=== PATIENT | male | born 1970 | race Caucasian/White ===

== ENCOUNTER 2020-08-21 09:27 | Outpatient (REF) | payer MEDICAID, SELFPAY ==
[2020-08-21 11:08] LABS: Prostate Specific Antigen < 0.05 ng/mL (<0.05-4.0)
== END 2020-08-21 09:28 | disposition home or self-care (01) ==
LOC: HO.LAB 09:27
PROVIDERS: PCP Internal Medicine Medical Oncology; Visit Provider Urology
DX: C61 Malignant neoplasm of prostate (principal)
CPT/HCPCS: 84153

== ENCOUNTER → 2020-08-27 09:01 | Outpatient (BNVA) | payer MEDICAID, SELFPAY | PROVIDERS: PCP Internal Medicine Medical Oncology; Referring Provider Internal Medicine Medical Oncology; Visit Provider Urology | DX: N52.01 Erectile dysfunction due to arterial insufficiency (principal); C61 Malignant neoplasm of prostate | CPT/HCPCS: 99212 ==

== ENCOUNTER 2021-01-07 11:29 | Outpatient (REF) | payer MEDICAID, SELFPAY ==
[2021-01-07 13:45] LABS: Prostate Specific Antigen < 0.05 ng/mL (<0.05-4.0)
== END 2021-01-07 11:30 | disposition home or self-care (01) ==
LOC: HO.LAB 11:29
PROVIDERS: PCP Internal Medicine Medical Oncology; Visit Provider Urology
DX: C61 Malignant neoplasm of prostate (principal)
CPT/HCPCS: 36415; 84153

== ENCOUNTER → 2021-01-08 10:05 | Outpatient (BNVA) | payer MEDICAID, SELFPAY | PROVIDERS: PCP Internal Medicine Medical Oncology; Visit Provider Urology | DX: Z13.89 Encounter for screening for other disorder (principal) | CPT/HCPCS: 99212 ==

== ENCOUNTER 2021-01-16 10:27 | Outpatient (REF) | payer MEDICAID, SELFPAY ==
[2021-01-16 12:21] LABS: Prostate Specific Antigen < 0.05 ng/mL (<0.05-4.0)
== END 2021-01-16 10:28 | disposition home or self-care (01) ==
LOC: HO.LAB 10:27
PROVIDERS: PCP Internal Medicine Medical Oncology; Visit Provider Urology
DX: C61 Malignant neoplasm of prostate (principal)
CPT/HCPCS: 36415; 84153

== ENCOUNTER → 2021-01-23 14:57 | Outpatient (BNVA) | payer MEDICAID, SELFPAY | PROVIDERS: PCP Internal Medicine Medical Oncology; Visit Provider Urology | DX: N52.01 Erectile dysfunction due to arterial insufficiency (principal) | CPT/HCPCS: 99212 ==

== ENCOUNTER 2021-01-29 10:26 | Outpatient (REF) | payer MEDICAID, SELFPAY ==
[2021-01-29 11:19] LABS: MANUAL DIFF FLAG NO
[2021-01-29 11:23] LABS: Basophils Percent Auto 0.7 % (0-2); Eosinophils Absolute Auto 0.1 X10*3/uL (0.0-0.4); Eosinophils Percent Auto 1.5 % (0-4); Hematocrit 48.4 % (42-52); Hemoglobin 16.3 g/dl (14.0-18.0); Imm Gran Abs Auto 0.06 X10*3/uL (0.00-0.03); Lymphocytes Absolute Auto 1.4 X10*3/uL (1.2-4.9); Lymphocytes Percent Auto 23.5 % (20-40); Mean Corpuscular HGB Conc 33.7 g/dl (31.0-36.0); Mean Corpuscular Hemoglobin 27.7 pg (27.0-33.0); Mean Corpuscular Volume 82.2 fL (80-98); Mean Platelet Volume 10.7 fL (9.4-12.4); Monocytes Absolute Auto 0.6 X10*3/uL (0.1-1.2); Monocytes Percent Auto 10.1 % (2-11); Neutrophils Absolute Auto 3.8 X10*3/uL (2.0-8.3); Neutrophils Percent Auto 63.2 % (45-73); Platelet Count 226 X10*3/uL (160-400); Red Blood Count 5.89 X10*6/uL (4.60-5.80); Red Cell Distribution Width 12.1 % (11.0-16.0)
[2021-01-29 12:04] LABS: Alanine Aminotransferase 27 U/L (0-40); Albumin Level 4.6 g/dL (3.5-5.0); Alkaline Phosphatase 52 U/L (39-117); Anion Gap 14 (12-20); Aspartate Amino Transferase 22 U/L (5-37); Bilirubin Total 0.6 mg/dL (0.0-1.0); Blood Urea Nitrogen 12 mg/dL (9-16); Calcium 9.4 mg/dL (8.4-10.2); Carbon Dioxide 25 mmol/L (22-29); Chloride 107 mmol/L (96-108); Cholesterol 240 mg/dL; Estimated Glomerular Filt Rate > 60; Glucose Fasting 92 mg/dL (60-99); HDL Cholesterol 51 mg/dL; LDL Cholesterol Calculated 156 mg/dl; Potassium 4.7 mmol/L (3.3-5.1); Sodium 141 mmol/L (135-145); Total Protein 7.2 g/dL (6.5-8.0); Triglycerides 169 mg/dL
== END 2021-01-29 10:27 | disposition home or self-care (01) ==
LOC: HO.LAB 10:26
PROVIDERS: PCP Internal Medicine Medical Oncology; Visit Provider Internal Medicine Medical Oncology
DX: J98.11 Atelectasis (principal); E78.2 Mixed hyperlipidemia; E66.3 Overweight
CPT/HCPCS: 36415; 80053; 80061; 85025

== ENCOUNTER 2021-05-12 10:02 | Outpatient (REF) | payer MEDICAID, SELFPAY ==
[2021-05-12 12:12] LABS: Prostate Specific Antigen < 0.05 ng/mL (<0.05-4.0)
== END 2021-05-12 10:03 | disposition home or self-care (01) ==
LOC: HO.LAB 10:02
PROVIDERS: PCP Internal Medicine Medical Oncology; Visit Provider Urology
DX: Z12.5 Encounter for screening for malignant neoplasm of prostate (principal); C61 Malignant neoplasm of prostate; N13.8 Other obstructive and reflux uropathy; N40.1 Benign prostatic hyperplasia with lower urinary tract symptoms
CPT/HCPCS: 36415; 84153

== ENCOUNTER → 2021-05-13 10:03 | Outpatient (BNVA) | payer MEDICAID, SELFPAY | PROVIDERS: PCP Internal Medicine Medical Oncology; Visit Provider Urology | DX: N52.01 Erectile dysfunction due to arterial insufficiency (principal); C61 Malignant neoplasm of prostate | CPT/HCPCS: 99212 ==

== ENCOUNTER 2021-08-06 08:25 | Outpatient (REF) | payer MEDICAID, SELFPAY ==
[2021-08-06 08:44] LABS: MANUAL DIFF FLAG NO
[2021-08-06 09:32] LABS: Basophils Percent Auto 0.5 % (0-2); Eosinophils Absolute Auto 0.2 X10*3/uL (0.0-0.4); Eosinophils Percent Auto 2.6 % (0-4); Hematocrit 48.4 % (42-52); Hemoglobin 16.9 g/dl (14.0-18.0); Imm Gran Abs Auto 0.05 X10*3/uL (0.00-0.03); Imm Gran Pct Auto 0.8 % (0.0-0.4); Lymphocytes Absolute Auto 1.7 X10*3/uL (1.2-4.9); Lymphocytes Percent Auto 26.3 % (20-40); Mean Corpuscular HGB Conc 34.9 g/dl (31.0-36.0); Mean Corpuscular Hemoglobin 28.1 pg (27.0-33.0); Mean Corpuscular Volume 80.4 fL (80-98); Mean Platelet Volume 10.5 fL (9.4-12.4); Monocytes Absolute Auto 0.7 X10*3/uL (0.1-1.2); Monocytes Percent Auto 10.8 % (2-11); Neutrophils Absolute Auto 3.9 X10*3/uL (2.0-8.3); Platelet Count 237 X10*3/uL (160-400); Red Blood Count 6.02 X10*6/uL (4.60-5.80); Red Cell Distribution Width 12.1 % (11.0-16.0); White Blood Count 6.6 X10*3/uL (4.8-10.8)
[2021-08-06 10:01] LABS: Alanine Aminotransferase 35 U/L (0-40); Albumin Level 4.7 g/dL (3.5-5.0); Alkaline Phosphatase 58 U/L (39-117); Anion Gap 13 (12-20); Aspartate Amino Transferase 25 U/L (5-37); Bilirubin Total 1.4 mg/dL (0.0-1.0); Blood Urea Nitrogen 13 mg/dL (9-16); Calcium 9.8 mg/dL (8.4-10.2); Carbon Dioxide 28 mmol/L (22-29); Chloride 104 mmol/L (96-108); Cholesterol 253 mg/dL; Estimated Glomerular Filt Rate > 60; Glucose Fasting 88 mg/dL (60-99); HDL Cholesterol 50 mg/dL; LDL Cholesterol Calculated 165 mg/dl; Potassium 4.9 mmol/L (3.3-5.1); Sodium 140 mmol/L (135-145); Total Protein 7.3 g/dL (6.5-8.0); Triglycerides 194 mg/dL
[2021-08-06 10:30] LABS: Prostate Specific Antigen < 0.05 ng/mL (<0.05-4.0)
== END 2021-08-06 08:26 | disposition home or self-care (01) ==
LOC: HO.LAB 08:25
PROVIDERS: PCP Internal Medicine Medical Oncology; Visit Provider Internal Medicine Medical Oncology
DX: J98.11 Atelectasis (principal); E78.2 Mixed hyperlipidemia; E66.3 Overweight
CPT/HCPCS: 36415; 80053; 80061; 84153; 85025

== ENCOUNTER 2021-08-14 11:51 | Outpatient (REF) | payer MEDICAID, SELFPAY ==
[2021-08-14 13:07] LABS: Prostate Specific Antigen < 0.05 ng/mL (<0.05-4.0)
== END 2021-08-14 11:52 | disposition home or self-care (01) ==
LOC: HO.LAB 11:51
PROVIDERS: PCP Internal Medicine Medical Oncology; Visit Provider Urology
DX: Z12.5 Encounter for screening for malignant neoplasm of prostate (principal); C61 Malignant neoplasm of prostate; N40.1 Benign prostatic hyperplasia with lower urinary tract symptoms; N13.8 Other obstructive and reflux uropathy
CPT/HCPCS: 36415; 84153

== ENCOUNTER → 2021-08-15 15:12 | Outpatient (BNVA) | payer MEDICAID, SELFPAY | PROVIDERS: PCP Internal Medicine Medical Oncology; Visit Provider Urology | DX: N52.01 Erectile dysfunction due to arterial insufficiency (principal); C61 Malignant neoplasm of prostate | CPT/HCPCS: 99212 ==

== ENCOUNTER 2022-02-09 06:39 | Outpatient (REF) | payer MEDICAID, SELFPAY ==
[2022-02-09 08:39] LABS: Prostate Specific Antigen < 0.05 ng/mL (<0.05-4.0)
== END 2022-02-09 06:40 | disposition home or self-care (01) ==
LOC: HO.LAB 06:39
PROVIDERS: PCP Internal Medicine Medical Oncology; Visit Provider Urology
DX: Z12.5 Encounter for screening for malignant neoplasm of prostate (principal); C61 Malignant neoplasm of prostate
CPT/HCPCS: 36415; 84153

== ENCOUNTER → 2022-02-11 14:19 | Outpatient (BNVA) | payer MEDICAID, SELFPAY | PROVIDERS: PCP Internal Medicine Medical Oncology; Visit Provider Urology | DX: Z13.89 Encounter for screening for other disorder (principal) ==

== ENCOUNTER 2022-04-07 09:35 | Outpatient (REF) | payer MEDICAID, SELFPAY ==
[2022-04-07 09:45] LABS: MANUAL DIFF FLAG NO
[2022-04-07 10:13] LABS: Basophils Percent Auto 0.7 % (0-2); Eosinophils Absolute Auto 0.1 X10*3/uL (0.0-0.4); Eosinophils Percent Auto 1.9 % (0-4); Hematocrit 47.9 % (42.0-52.0); Hemoglobin 16.2 g/dl (14.0-18.0); Imm Gran Abs Auto 0.09 X10*3/uL (0.00-0.03); Imm Gran Pct Auto 1.6 % (0.0-0.4); Lymphocytes Absolute Auto 1.5 X10*3/uL (1.2-4.9); Lymphocytes Percent Auto 25.9 % (20-40); Mean Corpuscular HGB Conc 33.8 g/dl (31.0-36.0); Mean Corpuscular Hemoglobin 27.6 pg (27.0-33.0); Mean Corpuscular Volume 81.6 fL (80.0-98.0); Mean Platelet Volume 10.7 fL (9.4-12.4); Monocytes Absolute Auto 0.7 X10*3/uL (0.1-1.2); Monocytes Percent Auto 11.6 % (2-11); Neutrophils Absolute Auto 3.4 x10*3/uL (2.0-8.3); Neutrophils Percent Auto 58.3 % (45-73); Platelet Count 215 X10*3/uL (160-400); Red Blood Count 5.87 X10*6/uL (4.60-5.80); Red Cell Distribution Width 12.1 % (11.0-16.0); White Blood Count 5.8 X10*3/uL (4.8-10.8)
[2022-04-07 11:03] LABS: Prostate Specific Antigen < 0.05 ng/mL (<0.05-4.0)
[2022-04-07 11:09] LABS: Alanine Aminotransferase 30 U/L (0-40); HDL Cholesterol 50 mg/dL
[2022-04-07 13:31] LABS: Albumin Level 4.5 g/dL (3.5-5.0); Alkaline Phosphatase 61 U/L (39-117); Anion Gap 11 (12-20); Aspartate Amino Transferase 22 U/L (5-37); Bilirubin Total 0.9 mg/dL (0.0-1.0); Blood Urea Nitrogen 14 mg/dL (9-16); Calcium 9.2 mg/dL (8.4-10.2); Carbon Dioxide 27 mmol/L (22-29); Chloride 105 mmol/L (96-108); Cholesterol 230 mg/dL; Estimated Glomerular Filt Rate > 60; Glucose Fasting 93 mg/dL (60-99); LDL Cholesterol Calculated 148 mg/dl; Potassium 4.3 mmol/L (3.3-5.1); Sodium 141 mmol/L (135-145); Total Protein 7.1 g/dL (6.5-8.0); Triglycerides 163 mg/dL
== END 2022-04-07 09:36 | disposition home or self-care (01) ==
LOC: HO.LAB 09:35
PROVIDERS: PCP Internal Medicine Medical Oncology; Visit Provider Internal Medicine Medical Oncology
DX: Z12.5 Encounter for screening for malignant neoplasm of prostate (principal); C61 Malignant neoplasm of prostate
CPT/HCPCS: 36415; 80053; 80061; 84153; 85025

== ENCOUNTER 2022-08-07 13:36 | Outpatient (REF) | payer MEDICAID, SELFPAY ==
[2022-08-07 13:52] LABS: MANUAL DIFF FLAG NO
[2022-08-07 14:10] LABS: Basophils Absolute Auto 0.1 X10*3/uL (0.0-0.2); Basophils Percent Auto 0.7 % (0-2); Eosinophils Absolute Auto 0.2 X10*3/uL (0.0-0.4); Eosinophils Percent Auto 3.3 % (0-4); Hematocrit 48.8 % (42.0-52.0); Hemoglobin 16.8 g/dl (14.0-18.0); Imm Gran Abs Auto 0.07 X10*3/uL (0.00-0.03); Lymphocytes Absolute Auto 1.5 X10*3/uL (1.2-4.9); Lymphocytes Percent Auto 21.5 % (20-40); Mean Corpuscular HGB Conc 34.4 g/dl (31.0-36.0); Mean Corpuscular Hemoglobin 27.6 pg (27.0-33.0); Mean Corpuscular Volume 80.1 fL (80.0-98.0); Mean Platelet Volume 10.6 fL (9.4-12.4); Monocytes Absolute Auto 0.7 X10*3/uL (0.1-1.2); Monocytes Percent Auto 10.7 % (2-11); Neutrophils Absolute Auto 4.3 x10*3/uL (2.0-8.3); Neutrophils Percent Auto 62.8 % (45-73); Platelet Count 229 X10*3/uL (160-400); Red Blood Count 6.09 X10*6/uL (4.60-5.80); Red Cell Distribution Width 12.2 % (11.0-16.0); White Blood Count 6.9 X10*3/uL (4.8-10.8)
[2022-08-07 14:55] LABS: Alanine Aminotransferase 31 U/L (0-40); Albumin Level 4.8 g/dL (3.5-5.0); Alkaline Phosphatase 75 U/L (39-117); Anion Gap 17 (12-20); Aspartate Amino Transferase 24 U/L (5-37); Bilirubin Total 0.9 mg/dL (0.0-1.0); Blood Urea Nitrogen 10 mg/dL (9-16); Carbon Dioxide 26 mmol/L (22-29); Chloride 102 mmol/L (96-108); Cholesterol 267 mg/dL; Estimated Glomerular Filt Rate > 60; Glucose Fasting 87 mg/dL (60-99); HDL Cholesterol 49 mg/dL; LDL Cholesterol Calculated 160 mg/dl; Potassium 4.5 mmol/L (3.3-5.1); Sodium 140 mmol/L (135-145); Total Protein 7.7 g/dL (6.5-8.0); Triglycerides 291 mg/dL
[2022-08-07 15:20] LABS: Prostate Specific Antigen < 0.05 ng/mL (<0.05-4.0)
== END 2022-08-07 13:37 | disposition home or self-care (01) ==
LOC: HO.LAB 13:36
PROVIDERS: Absent Provider Urology; PCP Internal Medicine Medical Oncology; Visit Provider Internal Medicine Medical Oncology
DX: C61 Malignant neoplasm of prostate (principal); E78.2 Mixed hyperlipidemia; E66.9 Obesity, unspecified
CPT/HCPCS: 36415; 80053; 80061; 84153; 85025

== ENCOUNTER → 2022-08-12 11:55 | Outpatient (BNVA) | payer MEDICAID, SELFPAY | PROVIDERS: PCP Internal Medicine Medical Oncology; Visit Provider Urology | DX: C61 Malignant neoplasm of prostate (principal); N52.01 Erectile dysfunction due to arterial insufficiency | CPT/HCPCS: 99212 ==

== ENCOUNTER 2022-09-01 13:06 | Outpatient (REF) | payer MEDICAID, SELFPAY ==
[2022-09-01 15:14] LABS: Prostate Specific Antigen < 0.10 ng/mL (<0.05-4.0)
== END 2022-09-01 13:07 | disposition home or self-care (01) ==
LOC: HO.LAB 13:06
PROVIDERS: PCP Internal Medicine Medical Oncology; Visit Provider Urology
DX: Z12.5 Encounter for screening for malignant neoplasm of prostate (principal); C61 Malignant neoplasm of prostate
CPT/HCPCS: 36415; 84153

== ENCOUNTER 2022-10-01 11:36 | Outpatient (REF) | payer MEDICAID, SELFPAY ==
[2022-10-01 12:28] LABS: MANUAL DIFF FLAG NO
[2022-10-01 12:33] LABS: Basophils Absolute Auto 0.1 X10*3/uL (0.0-0.2); Eosinophils Absolute Auto 0.1 X10*3/uL (0.0-0.4); Eosinophils Percent Auto 1.3 % (0-4); Hematocrit 49.8 % (42.0-52.0); Hemoglobin 17.3 g/dl (14.0-18.0); Imm Gran Abs Auto 0.07 X10*3/uL (0.00-0.03); Imm Gran Pct Auto 1.1 % (0.0-0.4); Lymphocytes Absolute Auto 1.4 X10*3/uL (1.2-4.9); Lymphocytes Percent Auto 22.2 % (20-40); Mean Corpuscular HGB Conc 34.7 g/dl (31.0-36.0); Mean Corpuscular Hemoglobin 28.1 pg (27.0-33.0); Mean Corpuscular Volume 80.8 fL (80.0-98.0); Mean Platelet Volume 10.5 fL (9.4-12.4); Monocytes Absolute Auto 0.7 X10*3/uL (0.1-1.2); Monocytes Percent Auto 11.4 % (2-11); Neutrophils Absolute Auto 3.9 x10*3/uL (2.0-8.3); Platelet Count 245 X10*3/uL (160-400); Red Blood Count 6.16 X10*6/uL (4.60-5.80); Red Cell Distribution Width 12.1 % (11.0-16.0); White Blood Count 6.2 X10*3/uL (4.8-10.8)
[2022-10-01 13:40] LABS: Alanine Aminotransferase 27 U/L (0-40); Albumin Level 4.8 g/dL (3.5-5.0); Alkaline Phosphatase 66 U/L (39-117); Anion Gap 11 (12-20); Aspartate Amino Transferase 22 U/L (5-37); Bilirubin Total 1.1 mg/dL (0.0-1.0); Blood Urea Nitrogen 13 mg/dL (9-16); Calcium 9.8 mg/dL (8.4-10.2); Carbon Dioxide 27 mmol/L (22-29); Chloride 105 mmol/L (96-108); Estimated Glomerular Filt Rate > 60; Glucose Random 92 mg/dL (60-115); Potassium 4.3 mmol/L (3.3-5.1); Prostate Specific Antigen < 0.10 ng/mL (<0.05-4.0); Sodium 139 mmol/L (135-145); Total Protein 7.4 g/dL (6.5-8.0)
== END 2022-10-01 11:37 | disposition home or self-care (01) ==
LOC: HO.LAB 11:36
PROVIDERS: PCP Internal Medicine Medical Oncology; Visit Provider Internal Medicine Medical Oncology
DX: Z12.5 Encounter for screening for malignant neoplasm of prostate (principal); K21.9 Gastro-esophageal reflux disease without esophagitis; C61 Malignant neoplasm of prostate
CPT/HCPCS: 36415; 80053; 84153; 85025

== ENCOUNTER 2023-02-02 09:45 | Outpatient (REF) | payer MEDICAID, SELFPAY ==
[2023-02-02 10:09] LABS: MANUAL DIFF FLAG NO
[2023-02-02 10:32] LABS: Basophils Absolute Auto 0.1 X10*3/uL (0.0-0.2); Basophils Percent Auto 0.7 % (0-2); Eosinophils Absolute Auto 0.2 X10*3/uL (0.0-0.4); Eosinophils Percent Auto 2.2 % (0-4); Hematocrit 49.6 % (42.0-52.0); Hemoglobin 16.8 g/dl (14.0-18.0); Imm Gran Abs Auto 0.08 X10*3/uL (0.00-0.03); Imm Gran Pct Auto 1.1 % (0.0-0.4); Lymphocytes Absolute Auto 1.7 X10*3/uL (1.2-4.9); Lymphocytes Percent Auto 24.1 % (20-40); Mean Corpuscular HGB Conc 33.9 g/dl (31.0-36.0); Mean Corpuscular Hemoglobin 27.7 pg (27.0-33.0); Mean Corpuscular Volume 81.8 fL (80.0-98.0); Monocytes Absolute Auto 0.7 X10*3/uL (0.1-1.2); Monocytes Percent Auto 9.8 % (2-11); Neutrophils Absolute Auto 4.3 x10*3/uL (2.0-8.3); Neutrophils Percent Auto 62.1 % (45-73); Platelet Count 236 X10*3/uL (160-400); Red Blood Count 6.06 X10*6/uL (4.60-5.80); Red Cell Distribution Width 12.3 % (11.0-16.0)
[2023-02-02 11:38] LABS: Alanine Aminotransferase 28 U/L (0-40); Albumin Level 4.6 g/dL (3.5-5.0); Alkaline Phosphatase 60 U/L (39-117); Anion Gap 13 (12-20); Aspartate Amino Transferase 21 U/L (5-37); Blood Urea Nitrogen 14 mg/dL (9-16); Calcium 9.3 mg/dL (8.4-10.2); Carbon Dioxide 27 mmol/L (22-29); Chloride 107 mmol/L (96-108); Cholesterol 239 mg/dL; Estimated Glomerular Filt Rate > 60; Glucose Fasting 87 mg/dL (60-99); HDL Cholesterol 47 mg/dL; LDL Cholesterol Calculated 140 mg/dl; Potassium 4.5 mmol/L (3.3-5.1); Sodium 142 mmol/L (135-145); Total Protein 6.9 g/dL (6.5-8.0); Triglycerides 263 mg/dL
[2023-02-02 13:02] LABS: Prostate Specific Antigen < 0.10 ng/mL (<0.05-4.0)
== END 2023-02-02 09:46 | disposition home or self-care (01) ==
LOC: HO.LAB 09:45
PROVIDERS: PCP Internal Medicine Medical Oncology; Visit Provider Internal Medicine Medical Oncology
DX: Z00.00 Encounter for general adult medical examination without abnormal findings (principal); Z12.5 Encounter for screening for malignant neoplasm of prostate; C61 Malignant neoplasm of prostate
CPT/HCPCS: 36415; 80053; 80061; 84153; 85025

== ENCOUNTER 2023-02-09 10:35 | Day surgery (SDC) | payer MEDICAID, SELFPAY ==
--- NOTE | 2023-02-08 13:50 | HO.ANESPROP2 ---
HPI - Anesthesia Eval Consult details Narrative: 53yo M for Colonoscopy PMFSH Active Problems Active Problems: All Active Problems (Updated 02/08/23 @ 12:39 by Zora Lezama RN) Erectile dysfunction due to arterial insufficiency (Acute) Prostate cancer (Acute) Past Medical History Medical History Anxiety Bilateral hand numbness Carpal tunnel syndrome Elevated PSA Gastroesophageal reflux disease without esophagitis Nephrolithiasis Neuropathy Prostate cancer Surgical History Surgical History H/O lithotripsy H/O prostatectomy History of prostate biopsy Social History Social History Patient Tobacco Use Status: Never used Tobacco Meds Allergies Allergy/AdvReac Type Severity Reaction Status Date / Time diclofenac Allergy Unknown Itching Verified 02/10/23 14:10 Home Medications Medication Instructions Recorded Confirmed Last Taken Type meloxicam 15 mg tablet 15 mg PO DAILY 02/11/22 02/10/23 Unknown History ibuprofen 800 mg tablet 800 mg PO Q8H PRN Pain 02/08/23 02/10/23 Unknown History Exam Exam Date and Time: February 08, 2023 1350 Pertinent Lab Results Pertinent Lab Results: Laboratory Tests 02/02/23 02/02/23 10:05 10:05 WBC 7.0 Hgb 16.8 Hct 49.6 Plt Count 236 Sodium 142 Potassium 4.5 Chloride 107 Carbon Dioxide 27 BUN 14 Creatinine 1.01 Assessment and Plan Assessment Anesthesia Assessment: Chart Reviewed
[2023-02-09 10:21] VITALS: BMI 30.7
[2023-02-09] MEDS: Lactated Ringers 1,000 ML 100 ML IVCONT (11:15)
[2023-02-09 11:28] VITALS: BP 144/77; PULSE 82; RESP 18; TEMP 36.6; O2SAT 98
--- NOTE | 2023-02-09 12:19 | MHC.SHP ---
Pre-Procedural Eval Section A Date of Service: 02/09/23 Section B Chief Complaint: screening Details of Present Illness: screening Relevant Family History (Specify if Yes): No Relevant Social History: None Present Medications: see Short Stay Collaborative assessment Medical History: No relevant PMH History of Previous Operations: No relevant previous surgery Allergies: Allergies Allergy/AdvReac Type Severity Reaction Status Date / Time diclofenac Allergy Unknown Itching Verified 02/09/23 11:32 Review of Systems Sugical H&P ROS: Negative: Constitution, Cardiovascular, Respiratory, Neurological, Psychiatric, Hem-Onc, Allergic/Immunologic, Gastrointestinal, Genitourinary, Musculoskeletal, Integumentary, Endocrine and Eyes/Ears/Nose/Throat Exam Surgical H&P Exam: Normal: HEENT, Normal: Heart, Normal: Lungs, Normal: Extremities, Normal: Abdomen, Normal: Skin and Normal: Neurological Plan Diagnosis/Plan: Unchanged I have reviewed the history and physical and performed a pertinent physical examination on my patient. No changes have occurred unless specified. Time Spent With Patient Time: Total time managing care of this patient today ____ minutes.
--- NOTE | 2023-02-09 12:44 | HO.ANESPROP2 ---
[facility] Active Problems Active Problems: All Active Problems (Updated 02/08/23 @ 12:39 by Zora Lezama RN) Erectile dysfunction due to arterial insufficiency (Acute) Prostate cancer (Acute) Past Medical History Medical History Anxiety Bilateral hand numbness Carpal tunnel syndrome Elevated PSA Gastroesophageal reflux disease without esophagitis Nephrolithiasis Neuropathy Prostate cancer Surgical History Surgical History H/O lithotripsy H/O prostatectomy History of prostate biopsy Social History Social History Patient Tobacco Use Status: Never used Tobacco Are you DNR?: No Advance Directives: No Advance Directives Information Provided: Yes Nutrition Risks: No Nutritional Risk Meds Allergies Allergy/AdvReac Type Severity Reaction Status Date / Time diclofenac Allergy Unknown Itching Verified 02/09/23 11:32 Active Medications: Current Medications Lactated Ringer's (Lr) 1,000 mls @ 100 mls/hr IVCONT .Q10H GINGER Last Admin: 02/09/23 11:15 Dose: 100 mls/hr Home Medications Medication Instructions Recorded Confirmed Last Taken Type meloxicam 15 mg tablet 15 mg PO DAILY 02/11/22 02/09/23 Unknown History ibuprofen 800 mg tablet 800 mg PO Q8H PRN Pain 02/08/23 02/08/23 Unknown History Exam Exam Date and Time: February 09, 2023 1244 Height,Weight and Vital Signs: Height 5 ft 5 in Weight 83.915 kg Last Vital Signs Temp 97.8 F 02/09/23 11:28 Pulse 82 02/09/23 11:28 Resp 18 02/09/23 11:28 BP 144/77 H 02/09/23 11:28 Pulse Ox 98 02/09/23 11:28 O2 Del Method Room Air 02/09/23 11:28 Airway Mallampati Class: II TM Dist: >3cm Neck ROM: Full Heart: RRR Lungs: CTA Assessment and Plan Final Anesthetic Review ASA Class: II Final Preanesthetic Review: Meds/Allgs Chart Reviewed, Consent Obtained/Reviewed and Anes Risks/Benef Reviewed Patient Risk: Low Procedure Risk: Low Anesthetic Plan Anesthetic Plan: MAC: Disposition: Standard PACU
[2023-02-09 12:57] VITALS: BP 96/55; PULSE 88; RESP 16; TEMP 36.6; O2SAT 94
--- NOTE | 2023-02-09 12:57 | PM.OP ---
Brief Operative Note Date of Service: 02/09/23 Pre-op diagnosis: screening Procedure: colonsocopy Surgeon: Mckinley Badillo Anesthesia: MAC Was an Health And Physical Education Professor used for this Procedure?: No Estimated blood loss (mL): 2 Pathology: other Condition: stable Disposition: PACU
[2023-02-09 13:12] VITALS: BP 122/78; PULSE 70; RESP 16; O2SAT 95
[2023-02-09 13:27] VITALS: BP 124/73; PULSE 63; RESP 16; TEMP 36.6; O2SAT 100
--- NOTE | 2023-02-09 13:30 | HO.POSTANES ---
Post Anesthesia Evaluation Post Anesthesia Evaluation Vital Signs: Vital Signs Temp Pulse Resp BP Pulse Ox O2 Del Method 02/09/23 12:57 98 F 88 16 96/55 L 94 Room Air 02/09/23 11:28 97.8 F 82 18 144/77 H 98 Room Air Anesthesia: Monitored Mental Status: Awake Pain Control: Satisfactory Nausea/Vomiting: None Hydration: Adequate Anesthesia-Related Issues: No Anes. Related Issues
--- NOTE | 2023-02-09 14:13 | OP_ITS ---
DATE OF SERVICE: 02/09/2023 SURGEON: Mckinley Badillo MD INDICATIONS: Colon cancer screening. PREOPERATIVE DIAGNOSIS: POSTOPERATIVE DIAGNOSIS: PROCEDURE PERFORMED: Colonoscopy to the terminal ileum with biopsy and snare polypectomy. ESTIMATED BLOOD LOSS: COMPLICATIONS: ANESTHESIA: Monitored anesthesia care. ASSISTANTS: SPECIMENS: DESCRIPTION OF PROCEDURE: A history and physical was performed. The risks and benefits of the procedure were explained to the patient. Informed consent was obtained. The patient was placed in the left lateral decubitus position. A digital rectal exam was performed and was found to be normal. The Olympus pediatric video colonoscope was introduced into the rectum and advanced to the cecum without difficulty. The cecum was identified by transillumination, palpation, and identification of ileocecal valve. Examination was performed. The scope was removed. He tolerated the procedure well and was returned to the recovery in stable condition. FINDINGS: The terminal ileum was examined and appeared normal. The visualized colonic mucosa was within normal limits. A small polyp measuring less than 5 mm in the right colon was removed with biopsy forceps. A 2nd polyp at 20 cm measuring approximately 6 mm was removed with a snare and biopsy forceps. No other polyps were identified. The quality of the prep was good. Retroflexed examination showed some small internal hemorrhoids. IMPRESSION: Colon polyps. RECOMMENDATION: Follow up the biopsy results. MD VANESSA Diaz/ANJELICAL / [id number]
== END 2023-02-09 14:30 | disposition home or self-care (01) ==
PROVIDERS: PCP Internal Medicine Medical Oncology; Visit Provider Internal Medicine Gastroenterology
PROC: 0DJD8ZZ Inspection of Lower Intestinal Tract, Via Natural or Artificial Opening Endoscopic (ICD-10-PCS; CPT 45378; principal; 2023-02-09 11:10)
DX: Z12.11 Encounter for screening for malignant neoplasm of colon (principal); D12.2 Benign neoplasm of ascending colon; K63.5 Polyp of colon; K64.8 Other hemorrhoids; K21.9 Gastro-esophageal reflux disease without esophagitis; G62.9 Polyneuropathy, unspecified; Z85.46 Personal history of malignant neoplasm of prostate; Z87.442 Personal history of urinary calculi; Z79.1 Long term (current) use of non-steroidal anti-inflammatories (NSAID); Z79.899 Other long term (current) drug therapy
CPT/HCPCS: 45385; 45380; 88305

== ENCOUNTER → 2023-02-10 13:34 | Outpatient (BNVA) | payer MEDICAID, SELFPAY | PROVIDERS: PCP Internal Medicine Medical Oncology; Visit Provider Urology ==

== ENCOUNTER 2023-07-19 09:55 | Outpatient (REF) | payer MEDICAID, SELFPAY ==
[2023-07-19 10:14] LABS: MANUAL DIFF FLAG NO
[2023-07-19 10:43] LABS: Basophils Percent Auto 0.5 % (0-2); Eosinophils Absolute Auto 0.2 X10*3/uL (0.0-0.4); Hematocrit 47.3 % (42.0-52.0); Hemoglobin 16.5 g/dl (14.0-18.0); Imm Gran Abs Auto 0.05 X10*3/uL (0.00-0.03); Imm Gran Pct Auto 0.8 % (0.0-0.4); Lymphocytes Absolute Auto 1.4 X10*3/uL (1.2-4.9); Lymphocytes Percent Auto 22.8 % (20-40); Mean Corpuscular HGB Conc 34.9 g/dl (31.0-36.0); Mean Corpuscular Hemoglobin 28.2 pg (27.0-33.0); Mean Corpuscular Volume 80.7 fL (80.0-98.0); Mean Platelet Volume 10.9 fL (9.4-12.4); Monocytes Absolute Auto 0.6 X10*3/uL (0.1-1.2); Monocytes Percent Auto 10.5 % (2-11); Neutrophils Absolute Auto 3.8 x10*3/uL (2.0-8.3); Neutrophils Percent Auto 62.4 % (45-73); Platelet Count 228 X10*3/uL (160-400); Red Blood Count 5.86 X10*6/uL (4.60-5.80); Red Cell Distribution Width 12.1 % (11.0-16.0)
[2023-07-19 11:24] LABS: Alanine Aminotransferase 23 U/L (0-40); Albumin Level 4.5 g/dL (3.5-5.0); Alkaline Phosphatase 59 U/L (39-117); Anion Gap 13 (12-20); Aspartate Amino Transferase 22 U/L (5-37); Blood Urea Nitrogen 11 mg/dL (9-16); Calcium 9.6 mg/dL (8.4-10.2); Carbon Dioxide 26 mmol/L (22-29); Chloride 107 mmol/L (96-108); Cholesterol 242 mg/dL (<200); Estimated Glomerular Filt Rate > 60; Glucose Fasting 88 mg/dL (60-99); HDL Cholesterol 48 mg/dL (>40); LDL Cholesterol Calculated 156 mg/dL (<100); Potassium 4.2 mmol/L (3.3-5.1); Sodium 142 mmol/L (135-145); Total Protein 7.2 g/dL (6.5-8.0); Triglycerides 190 mg/dL (<150)
== END 2023-07-19 09:56 | disposition home or self-care (01) ==
LOC: HO.LAB 09:55
PROVIDERS: PCP Internal Medicine Medical Oncology; Visit Provider Internal Medicine Medical Oncology
DX: G62.9 Polyneuropathy, unspecified (principal); E78.2 Mixed hyperlipidemia; C61 Malignant neoplasm of prostate
CPT/HCPCS: 36415; 80053; 80061; 85025

== ENCOUNTER 2023-08-07 09:18 | Outpatient (REF) | payer MEDICAID, SELFPAY ==
[2023-08-07 11:32] LABS: Prostate Specific Antigen < 0.10 ng/mL (<0.05-4.0)
== END 2023-08-07 09:19 | disposition home or self-care (01) ==
LOC: HO.LAB 09:18
PROVIDERS: PCP Internal Medicine Medical Oncology; Visit Provider Urology
DX: C61 Malignant neoplasm of prostate (principal)
CPT/HCPCS: 36415; 84153

== ENCOUNTER 2023-08-12 10:21 | Outpatient (AMB) | payer MEDICAID, SELFPAY ==
--- NOTE | 2023-08-12 10:21 | A.OFFVIS_ITS ---
Intake Intake Visit Reasons: 6m/PSA(set) Intake Note: pt has a televisit for a 6 month follow up on his PSA <0.10 done 08/07/23 Coil Finisher Required: No Allergies diclofenac Allergy (Unknown, Verified 02/10/23 14:10) Itching Medication List - Last Reconciled 08/12/23 by Doug Sherwood MD ibuprofen 800 mg PO Q8H PRN insulin syringe-needle U-100 (BD Insulin Syringe Ultra-Fine) As directed meloxicam 15 mg PO DAILY tadalafil 10 mg PO DAILY 90 days tadalafil 20 mg PO ONCE PRN 30 days HPI HPI Comments History of Present Illness Details Ang is a pleasant male. He is a patient Dr. Gayle. He is seen for the following urologic conditions - prostate cancer - erectile dysfunction Telemedicine Evaluation 15 min Consultation DoxPrimary Data Nevin Video attempted Reach trial 10 mg daily tadalafil PSA remains low Response to TriMix maintained - 0.35cc per episode Good responses as needed PSA 08/08 <0.05, 02/07 <0.1, 08/09 <0.1 Six month follow-up Prostate cancer: [place] 6. Robotic prostatectomy 08/2019. PSA remains undetectable Effective urinary control Prostate cancer was diagnosed 05/23/19 Dr Sherwood. Diagnosis was reached by needle biopsy, for elevated PSA, PSA at diagnosis 7.6 7%, size at TRUS 30gm. The [place] grade 3+3 - 6 on 12 cores Bilateral - all Gl 3+3 LBL 5%, LMM 70%, DEMIAN 60%, HAYDEN 80%, RBM 5%, RMM 5% Total 225/1200 = 19%. TNM Classification of Malignant Tumours (TNM) T1c. The [place] (NCCN) risk category is Low Risk (PSA< 10, Gl < 7, T1c) Group 1. Initial therapy included Primary treatment 09/05 , Prostatectomy (RRP/Robotic) - Dr Braxton Muñoz. Recent labs included 10/05 < 0.05 03/06 < 0.05, 06/06 < 0.1, 09/06- < 0.05, 01/05 <0.1, 05/07 <0.1, 08/07 <0.1, 02/06 <0.1 Recent imaging included 07/06 MRI - no clinically significant lesions seen Erectile dysfunction Secondary to prostatectomy Failed to regain function surgery. Trialed on medications and pump Good response to injectable TriMix - 0.35cc [facility] Medical History Anxiety Bilateral hand numbness Carpal tunnel syndrome Elevated PSA Gastroesophageal reflux disease without esophagitis Nephrolithiasis Neuropathy Prostate cancer Surgical History H/O lithotripsy H/O prostatectomy History of prostate biopsy Social History Patient Tobacco Use Status: Never used Tobacco Review of Systems Const All systems reviewed & are unremarkable except as noted in HPI and below Reports no additional complaints Resp Reports no additional complaints GI Reports no additional complaints Reports as per HPI Musc Reports no additional complaints Physical Exam Telemedicine evaluation Appropriate responses Regular breathing rate and rhythm HEENT Head: Yes normal to inspection Ears: hearing grossly normal bilaterally Eyes General: appearance normal, both eyes and all related structures Neck Neck: Yes normal visual inspection Chest Chest palpation & inspection: normal inspection of the chest Resp Effort & Inspection: normal respiratory effort and able to speak in complete sentences Assessment & Plan Assessment & Plan (1) Prostate cancer: Comment: Low-grade low volume disease late 2019 Code(s): C61 - Malignant neoplasm of prostate (2) Erectile dysfunction due to arterial insufficiency: Code(s): N52.01 - Erectile dysfunction due to arterial insufficiency Plan Six month follow-up Orders: Orders Prostate Specific Antigen 6 Months N52.01 - Erectile dysfunction due to arterial insufficiency Patient Instructions: Imaging studies, laboratory and physical exam results were discussed and reviewed in detail. No major barriers to patient understanding were identified. An opportunity to ask questions regarding the treatment plan was provided. All questions were answered. The patient expressed understanding and agreement with the above treatment plan. The patient is aware they should contact our office by phone for worsening of their current condition or the appearance of new urologic symptoms. Compliance is encouraged with any medications and followup testing that is ordered. It is a privilege to participate in the urologic care of your patient. If you have any questions or concerns regarding treatment for the above conditions, or other urologic issues, please do not hesitate to contact me. The office telephone contact is [phone]. This note is constructed using voice recognition software. While every effort has been made to ensure accuracy regulated program manager errors may have been included. Yours sincerely, Dr Doug Sherwood MD, [facility] - Urology Providers of Expert, Compassionate Care for the Genitourinary System Telehealth Telehealth Location of provider rendering services: practice address Location of patient: address on file Patient Identification confirmed using: Name, : Yes Telehealth method: video Patient verbally consented to treatment: Yes Patient verbally consented to billing insurance company: Yes Patient informed of any privacy concerns related to visit: Yes Coding Level of Care Code Tele Est Pt Level 3 (89155) Diagnoses Prostate cancer C61 Erectile dysfunction due to arterial insufficiency N52.01
== END 2023-08-12 11:07 | disposition home or self-care (01) ==
LOC: HO.HUSH 10:21
PROVIDERS: PCP Internal Medicine Medical Oncology; Visit Provider Urology
DX: C61 Malignant neoplasm of prostate (principal); N52.01 Erectile dysfunction due to arterial insufficiency
CPT/HCPCS: 99213

== ENCOUNTER → 2023-08-12 10:21 | Outpatient (BNVA) | payer MEDICAID, SELFPAY | PROVIDERS: PCP Internal Medicine Medical Oncology; Visit Provider Urology ==

== ENCOUNTER 2023-10-10 13:13 | Emergency (ER) | payer MEDICAID, SELFPAY ==
[2023-10-10 13:36] VITALS: BP 128/87; PULSE 97; RESP 18; TEMP 37.8; O2SAT 96; BMI 30.9
--- NOTE | 2023-10-10 14:05 | ED_ITS ---
HPI - URI/Sore Throat General Chief Complaint: Upper Respiratory Symptoms Stated Complaint: Fever 4 days Time Seen by Provider: 10/10/23 15:25 Source: patient Mode of arrival: ambulatory Limitations: no limitations History of Present Illness HPI Narrative: 53 year old male with pmhx significant for anxiety, GERD, prostate cancer presents to the ED today for evaluation of fever and body aches x4 days. Reports associated dry cough. Reports TMAX of 102 at home. Has been taking tylenol and ibuprofen as needed. Denies sick contacts. Denies chills, sore throat, chest pain, SOB, wheezing, abd pain, n/v, diarrhea, LE swelling/pain. Related Data Home Medications Medication Instructions Recorded Confirmed meloxicam 15 mg tablet 15 mg PO DAILY 02/11/22 08/12/23 ibuprofen 800 mg tablet 800 mg PO Q8H PRN Pain 02/08/23 08/12/23 Previous Rx's Medication Instructions Recorded insulin syringe-needle U-100 0.5 #10 ea 08/15/21 mL 31 gauge x 5/16 (BD Insulin Syringe Ultra-Fine) tadalafil 10 mg tablet 10 mg PO DAILY 90 days #90 tabs 03/16/23 tadalafil 20 mg tablet 20 mg PO ONCE PRN sexual activity 03/16/23 30 days #30 tabs Allergies Allergy/AdvReac Type Severity Reaction Status Date / Time diclofenac Allergy Unknown Itching Verified 02/10/23 14:10 Review of Systems Review of Systems: Constitutional: +fever, No chills, fatigue, night sweats, weight changes ENT/Mouth: No ear pain, hearing loss, nasal congestion, sinus pain, rhinorrhea, sore throat, odynophagia, dysphagia Eyes: No eye pain, swelling, redness, vision changes, discharge Cardio: No chest pain, palpitations, CASAS, orthopnea, peripheral edema Pulm: No SOB, cough, sputum, wheezing, dyspnea, hemoptysis GI: No nausea, vomiting, hematemesis, abdominal pain, diarrhea, constipation, hematochezia, melena : No irregular bleeding, dysuria, frequency, urgency, hesitancy, hematuria, flank pain MSK: No back pain, neck pain, joint pain, +myalgias Skin: No lesions, rashes Neuro: No weakness, numbness, paresthesias, LOC, dizziness, headache All other systems reviewed and are negative. PMFSH Past Medical History Attestation statement: The following information was validated with the patient. Source: old records reviewed and nursing notes reviewed Medical History Neuropathy Nephrolithiasis Anxiety Gastroesophageal reflux disease without esophagitis Prostate cancer Elevated PSA Bilateral hand numbness Carpal tunnel syndrome Surgical History H/O prostatectomy H/O lithotripsy History of prostate biopsy Social History Social History Patient Tobacco Use Status: Never used Tobacco Advance Directives: No Advance Directives Information Provided: Yes Physical Exam Vital Signs: Vital Signs: Last Vital Signs Temp 100.0 F 10/10/23 13:36 Pulse 97 10/10/23 13:36 Resp 18 10/10/23 13:36 BP 128/87 10/10/23 13:36 Pulse Ox 96 10/10/23 13:36 O2 Del Method Room Air 10/10/23 13:36 BMI result Body Mass Index 30.9 Vital signs stable Const: General: cooperative, healthy appearing, comfortable, no acute distress, alert and awake Orientation/consciousness: patient oriented x3 Limitations: no limitations HEENT: Other: Posterior oropharynx without erythema or edema, no tonsillar exudates, no peritonsillar masses, uvula midline. Controlling secretions and speaking complete sentences. Head: Yes normal to inspection, Yes normocephalic and Yes atraumatic Ears: hearing grossly normal bilaterally, external ears normal, TM's normal bilaterally, EAC's normal, mastoids normal and no periauricular adenopathy General nose exam: Normal external nose present and No nasal discharge present Face and sinus: Yes normal facial exam and Yes sinuses nontender Eyes: General: appearance normal, both eyes and all related structures Pupils: Equal, round and reactive pupils present Neck: Neck: Yes normal visual inspection, Yes full ROM and Yes no lymphadenopathy Resp: Effort & Inspection: normal respiratory effort, able to speak in complete sentences, Actively coughing, no respiratory distress, no tripod positioning and no use of accessory muscles Auscultation: clear to auscultation bilaterally and no wheezes Cardio: Rate: regular rate Rhythm: regular rhythm GI: Inspection: Yes normal to inspection Palpation (GI): Soft to palpation and nontender Skin: General skin exam: no rashes or lesions noted Neuro: General: patient oriented x3, gait normal and moves all extremities Cranial nerves: Yes Equal, round and reactive pupils present Extrem: General: Yes normal to inspection Course Course Course Narrative: This is an RME: Additional HPI, ROS, PE not included below will be deferred to primary provider. Patient is a 53 year old presents emergency department from fever, TMax 102, mild rhinorrhea, body aches. Denies known sick contacts.States seldom leaves the home. Plan: viral testing Reevaluation(s) Reevaluation #1: 1610-- Patient serology came back positive for flu A. Informed patient of serology results. Educated him on symptomatic treatment. This is not warrant treatment with antibiotics. Patient has remained stable throughout ED visit today. Discussed worrisome signs and symptoms and when to return to the emergency department. All questions answered at this time. Patient is agreeable with disposition and stable for discharge. Medical Decision Making Medical Decision Making [facility] Narrative: 53 year old male with pmhx significant for anxiety, GERD, prostate cancer presents to the ED today for evaluation of fever and body aches x4 days. Vital signs notable for low-grade fever at 100.0. Not hypoxic. Patient is nontoxic appearing in no acute distress. Lungs are clear to auscultation bilaterally, no wheezing. Coughing on exam. Bilateral EACs and TMs WNL. No lymphadenopathy. Posterior oropharynx without erythema or edema, no tonsillar exudates, uvula midline, speaking complete sentences. No calf tenderness bilaterally. Clinical concern for viral syndrome. Unlikely pneumonia, strep throat, mono, CYBER SECURITY MANAGER, retropharyngeal abscess, dental abscess, epiglottis, acute respiratory distress. Differential Diagnosis Differential Diagnoses: The differential diagnosis associated with the presentation includes as above. Admission/Observation Not indicated Lab Data [facility] Lab Attestation statement: I reviewed the patient's lab results. as above Labs: Lab Results 10/10/23 Range/Units 15:17 COVID-19 (MELLISSA) Negative (Negative) COVID-19 Clin Com See Note Influenza Type A (SOFÍA) Positive A (Negative) Influenza Type B (SOFÍA) Negative (Negative) Influenza A & B Note See Note External Record Review External record reviewed: Inpatient record Prescription Management I considered prescription management with: Pain Medication Chronic Conditions Patient?s care impacted by: Other (prostate cancer) Social Determinants Patient?s care significantly limited by Social Determinants of Health including: Other Social Determinant of Health Critical Care Time Critical Care Time Critical Care Time: No Discharge Plan Discharge Clinical Impression: Influenza A Patient Disposition: Home, Self-Care Instructions: Influenza (ED), Flu Shot (Vaccine) for Adults (ED) Additional Instructions: Today you tested positive for influenza A. The treatment for this asymptomatic and does not require antibiotics. Take Ibuprofen or Tylenol as needed for fevers or body aches.?.? Practice social distancing and good hand hygiene. Drink plenty of fluids. Follow-up with your primary care provider as needed. Return to the emergency department with new or worsening symptoms. In case of emergency call 911 You can purchase a pulse oximeter from your local pharmacy or grocery store, and monitor your oxygen saturation if it goes below 94% you should return to the emergency department for further evaluation. Prescriptions: No Action tadalafil 10 mg tablet 10 mg PO DAILY 90 Days Qty: 90 1RF tadalafil 20 mg tablet 20 mg PO ONCE PRN (Reason: sexual activity) 30 Days Qty: 30 0RF Rx Instructions: on demand ibuprofen 800 mg Tablet 800 mg PO Q8H PRN (Reason: Pain) (DME) insulin syringe-needle U-100 [BD Insulin Syringe Ultra-Fine] 0.5 mL 31 gauge x 5/16 syringe See Rx Instructions .Route Qty: 10 2RF Rx Instructions: As directed meloxicam 15 mg tablet 15 mg PO DAILY Referrals: Homar Gayle MD [Primary Care Provider] -
[2023-10-10 15:47] LABS: IDNOW Serial# BCCEAD1C; Influenza A Positive (Negative); Influenza B2 Negative (Negative)
[2023-10-10 15:48] LABS: COVID-19 Test Negative (Negative); IDNOW Serial# 08D9AD1C
== END 2023-10-10 16:24 | disposition home or self-care (01) ==
PROVIDERS: Emergency Provider Student in an Organized Health Care Education/Training Program; PCP Internal Medicine Medical Oncology
DX: J10.1 Influenza due to other identified influenza virus with other respiratory manifestations (principal); Z11.52 Encounter for screening for COVID-19
CPT/HCPCS: 87502; 87635; 99282; 99283

== ENCOUNTER 2024-02-08 07:10 | Outpatient (REF) | payer MEDICAID, SELFPAY ==
[2024-02-08 07:26] LABS: MANUAL DIFF FLAG NO
[2024-02-08 07:52] LABS: Basophils Percent Auto 0.6 % (0-2); Eosinophils Absolute Auto 0.3 X10*3/uL (0.0-0.4); Eosinophils Percent Auto 3.5 % (0-4); Hemoglobin 17.5 g/dl (14.0-18.0); Imm Gran Abs Auto 0.08 X10*3/uL (0.00-0.03); Imm Gran Pct Auto 1.1 % (0.0-0.4); Lymphocytes Absolute Auto 1.4 X10*3/uL (1.2-4.9); Lymphocytes Percent Auto 19.6 % (20-40); Mean Corpuscular HGB Conc 34.3 g/dl (31.0-36.0); Mean Corpuscular Hemoglobin 28.3 pg (27.0-33.0); Mean Corpuscular Volume 82.5 fL (80.0-98.0); Monocytes Absolute Auto 0.8 X10*3/uL (0.1-1.2); Monocytes Percent Auto 11.4 % (2-11); Neutrophils Absolute Auto 4.6 x10*3/uL (2.0-8.3); Neutrophils Percent Auto 63.8 % (45-73); Platelet Count 235 X10*3/uL (160-400); Red Blood Count 6.18 X10*6/uL (4.60-5.80); Red Cell Distribution Width 12.4 % (11.0-16.0); White Blood Count 7.1 X10*3/uL (4.8-10.8)
[2024-02-08 08:20] LABS: Alanine Aminotransferase 35 U/L (0-40); Albumin Level 4.7 g/dL (3.5-5.0); Alkaline Phosphatase 59 U/L (39-117); Anion Gap 11 (12-20); Aspartate Amino Transferase 23 U/L (5-37); Bilirubin Total 0.8 mg/dL (0.0-1.0); Blood Urea Nitrogen 17 mg/dL (9-16); Calcium 9.7 mg/dL (8.4-10.2); Carbon Dioxide 29 mmol/L (22-29); Chloride 107 mmol/L (96-108); Cholesterol 255 mg/dL (<200); Estimated Glomerular Filt Rate > 60; Glucose Fasting 97 mg/dL (60-99); HDL Cholesterol 49 mg/dL (>40); LDL Cholesterol Calculated 155 mg/dL (<100); Potassium 4.2 mmol/L (3.3-5.1); Sodium 143 mmol/L (135-145); Total Protein 7.8 g/dL (6.5-8.0); Triglycerides 256 mg/dL (<150)
[2024-02-08 09:10] LABS: Prostate Specific Antigen < 0.10 ng/mL (<0.05-4.0)
== END 2024-02-08 07:11 | disposition home or self-care (01) ==
LOC: HO.LAB 07:10
PROVIDERS: Absent Provider Internal Medicine Medical Oncology; PCP Internal Medicine Medical Oncology; Visit Provider Urology
DX: Z12.5 Encounter for screening for malignant neoplasm of prostate (principal); E78.2 Mixed hyperlipidemia; C61 Malignant neoplasm of prostate; E66.9 Obesity, unspecified
CPT/HCPCS: 36415; 80053; 80061; 84153; 85025

== ENCOUNTER 2024-02-11 11:58 | Outpatient (AMB) | payer MEDICAID, SELFPAY ==
--- NOTE | 2024-02-11 11:55 | MHC.OFFVIS ---
Intake Visit Reasons: 6M PSA(set)Confirmed Intake Note: Patient is Present for Follow Up Urology Medication: Tadalafil Antibiotic Allergies:None Blood Thinners:None Allergies diclofenac Allergy (Unknown, Verified 02/10/23 14:10) Itching HPI Comments Details: Ang is a pleasant male. He is a patient Dr. Gayle. He is seen for the following urologic conditions - prostate cancer - erectile dysfunction 6m f/u PSA remains well controlled Response to TriMix maintained - 0.35cc per episode Good responses as needed PSA 08/08 <0.05, 02/07 <0.1, 08/09 <0.1, 02/08 <0.1 Six month follow-up Prostate cancer: Ketan 6. Robotic prostatectomy 08/2019. PSA remains undetectable Effective urinary control Prostate cancer was diagnosed 05/23/19 Dr Sherwood. Diagnosis was reached by needle biopsy, for elevated PSA, PSA at diagnosis 7.6 7%, size at TRUS 30gm. The Ketan grade 3+3 - 6 on 12 cores Bilateral - all Gl 3+3 LBL 5%, LMM 70%, DEMIAN 60%, HAYDEN 80%, RBM 5%, RMM 5% Total 225/1200 = 19%. TNM Classification of Malignant Tumours (TNM) T1c. The D'Mariam (NCCN) risk category is Low Risk (PSA< 10, Gl < 7, T1c) Group 1. Initial therapy included Primary treatment 09/05 , Prostatectomy (RRP/Robotic) - Dr Braxton Muñoz. Recent labs included 10/05 < 0.05 03/06 < 0.05, 06/06 < 0.1, 09/06- < 0.05, 01/05 <0.1, 05/07 <0.1, 08/07 <0.1, 02/06 <0.1 Recent imaging included 07/06 MRI - no clinically significant lesions seen Erectile dysfunction Secondary to prostatectomy Failed to regain function surgery. Trialed on medications and pump Good response to injectable TriMix - 0.35cc PFSH Medical History Neuropathy Nephrolithiasis Anxiety Gastroesophageal reflux disease without esophagitis Prostate cancer Elevated PSA Bilateral hand numbness Carpal tunnel syndrome Surgical History H/O prostatectomy H/O lithotripsy History of prostate biopsy Social History Patient Tobacco Use Status: Never used Tobacco Review of Systems Const Denies chills and Denies fever(s) Card Reports no additional complaints and Denies syncope Resp Denies cough GI Denies abdominal pain and Denies heartburn Reports as per HPI and Denies change in libido Neuro Denies syncope Psych Denies change in libido Endo Denies change in libido Physical Exam Const General: cooperative, healthy appearing, comfortable and no acute distress Orientation/consciousness: patient oriented x3 HEENT Face and sinus: Yes normal facial exam Mouth: moist mucous membranes Neck Neck: Yes normal visual inspection, Yes full ROM and Yes trachea midline Chest Chest palpation & inspection: normal inspection of the chest Resp Effort & Inspection: normal respiratory effort, able to speak in complete sentences and no respiratory distress GI Inspection: Yes normal to inspection Back/Spine/Pelvis Cervical Spine: normal cervical lordosis Thoracic/Lumbar Spine: thoracic and lumbar spine normal to inspection Skin General skin exam: no rashes or lesions noted Neuro General: patient oriented x3, gait normal, tone normal and moves all extremities Extrem General: Yes normal to inspection and Yes capillary refill normal Assessment & Plan Assessment & Plan (1) Erectile dysfunction due to arterial insufficiency: Code(s): N52.01 - Erectile dysfunction due to arterial insufficiency Category: Medical (2) Prostate cancer: Comment: Low-grade low volume disease late 2018 Code(s): C61 - Malignant neoplasm of prostate Category: Medical Plan Six-month follow-up PSA Orders: Orders Prostate Specific Antigen 6 Months C61 - Malignant neoplasm of prostate Patient Instructions: Imaging studies, laboratory and physical exam results were discussed and reviewed in detail. No major barriers to patient understanding were identified. An opportunity to ask questions regarding the treatment plan was provided. All questions were answered. The patient expressed understanding and agreement with the above treatment plan. The patient is aware they should contact our office by phone for worsening of their current condition or the appearance of new urologic symptoms. Compliance is encouraged with any medications and followup testing that is ordered. It is a privilege to participate in the urologic care of your patient. If you have any questions or concerns regarding treatment for the above conditions, or other urologic issues, please do not hesitate to contact me. The office telephone contact is [phone]. This note is constructed using voice recognition software. While every effort has been made to ensure accuracy fire equipment repairer inspector errors may have been included. Yours sincerely, Dr Doug Sherwood MD, [facility] - Urology Providers of Expert, Compassionate Care for the Genitourinary System Coding Level of Care Code Est Pt Level 3 (67096) Diagnoses Erectile dysfunction due to arterial insufficiency N52.01 Prostate cancer C61
== END 2024-02-11 12:21 | disposition home or self-care (01) ==
PROVIDERS: PCP Internal Medicine Medical Oncology; Visit Provider Urology
DX: N52.01 Erectile dysfunction due to arterial insufficiency (principal); C61 Malignant neoplasm of prostate
CPT/HCPCS: 99213

== ENCOUNTER → 2024-02-11 11:58 | Outpatient (BNVA) | payer MEDICAID, SELFPAY | PROVIDERS: PCP Internal Medicine Medical Oncology; Visit Provider Urology | DX: C61 Malignant neoplasm of prostate (principal); N52.01 Erectile dysfunction due to arterial insufficiency; Z79.899 Other long term (current) drug therapy | CPT/HCPCS: 99212 ==

== ENCOUNTER 2024-06-12 07:15 | Outpatient (REF) | payer MEDICAID, SELFPAY ==
[2024-06-12 07:33] LABS: MANUAL DIFF FLAG NO
[2024-06-12 07:47] LABS: Basophils Percent Auto 0.6 % (0-2); Eosinophils Absolute Auto 0.2 X10*3/uL (0.0-0.4); Eosinophils Percent Auto 3.3 % (0-4); Hemoglobin 16.4 g/dl (14.0-18.0); Imm Gran Abs Auto 0.06 X10*3/uL (0.00-0.03); Imm Gran Pct Auto 0.9 % (0.0-0.4); Lymphocytes Absolute Auto 1.3 X10*3/uL (1.2-4.9); Lymphocytes Percent Auto 19.9 % (20-40); Mean Corpuscular HGB Conc 34.9 g/dl (31.0-36.0); Mean Corpuscular Hemoglobin 28.3 pg (27.0-33.0); Mean Platelet Volume 10.7 fL (9.4-12.4); Monocytes Absolute Auto 0.8 X10*3/uL (0.1-1.2); Monocytes Percent Auto 11.3 % (2-11); Neutrophils Absolute Auto 4.3 x10*3/uL (2.0-8.3); Platelet Count 237 X10*3/uL (160-400); Red Cell Distribution Width 12.3 % (11.0-16.0); White Blood Count 6.7 X10*3/uL (4.8-10.8)
[2024-06-12 08:13] LABS: Alanine Aminotransferase 22 U/L (0-40); Albumin Level 4.4 g/dL (3.5-5.0); Alkaline Phosphatase 57 U/L (39-117); Anion Gap 10 (12-20); Aspartate Amino Transferase 19 U/L (5-37); Bilirubin Total 0.7 mg/dL (0.0-1.0); Blood Urea Nitrogen 16 mg/dL (9-16); Calcium 9.3 mg/dL (8.4-10.2); Carbon Dioxide 28 mmol/L (22-29); Chloride 108 mmol/L (96-108); Cholesterol 234 mg/dL (<200); Estimated Glomerular Filt Rate > 60; Glucose Fasting 100 mg/dL (60-99); HDL Cholesterol 53 mg/dL (>40); LDL Cholesterol Calculated 142 mg/dL (<100); Potassium 4.2 mmol/L (3.3-5.1); Sodium 142 mmol/L (135-145); Total Protein 7.2 g/dL (6.5-8.0); Triglycerides 197 mg/dL (<150)
[2024-06-12 08:40] LABS: Prostate Specific Antigen < 0.10 ng/mL (<0.05-4.0)
== END 2024-06-12 07:16 | disposition home or self-care (01) ==
LOC: HO.LAB 07:15
PROVIDERS: PCP Internal Medicine Medical Oncology; Visit Provider Internal Medicine Medical Oncology
DX: R97.20 Elevated prostate specific antigen [PSA] (principal); E78.2 Mixed hyperlipidemia; E66.9 Obesity, unspecified
CPT/HCPCS: 36415; 80053; 80061; 84153; 85025

== ENCOUNTER 2024-08-09 09:15 | Outpatient (REF) | payer MEDICAID, SELFPAY ==
[2024-08-09 11:48] LABS: Prostate Specific Antigen < 0.10 ng/mL (<0.05-4.0)
== END 2024-08-09 09:16 | disposition home or self-care (01) ==
LOC: HO.LAB 09:15
PROVIDERS: PCP Internal Medicine Medical Oncology; Visit Provider Urology
DX: N52.01 Erectile dysfunction due to arterial insufficiency (principal)
CPT/HCPCS: 36415; 84153

== ENCOUNTER 2024-08-11 09:29 | Outpatient (AMB) | payer MEDICAID, SELFPAY ==
--- NOTE | 2024-08-11 09:34 | MHC.OFFVIS ---
Intake Visit Reasons: 1y/PSA(set) Intake Note: Patient is present for PSA Follow up Urology Med: Tadalafil Antibiotic Allergy: None Blood Thinner: None Recent PSA: 08/09/2024 PSA: <0.10 Maxillofacial Prosthodontist Required: No Accompanied by: Self / Same As Patient Allergies diclofenac Allergy (Unknown, Verified 02/10/23 14:10) Itching HPI Comments Details: Ang is a pleasant male. He is a patient Dr. Gayle. He is seen for the following urologic conditions - prostate cancer - erectile dysfunction 6m f/u - may move to once a year PSA remains well controlled Response to TriMix maintained - 0.35cc per episode Good responses as needed Discussed penile prosthetic PSA 08/08 <0.05, 02/07 <0.1, 08/09 <0.1, 02/08 <0.1, 08/10 <0.1 May move to yearly follow-up Prostate cancer: Lockhart 6. Robotic prostatectomy 08/2019. PSA remains undetectable Effective urinary control Prostate cancer was diagnosed 05/23/19 Dr Sherwood. Diagnosis was reached by needle biopsy, for elevated PSA, PSA at diagnosis 7.6 7%, size at TRUS 30gm. The Lockhart grade 3+3 - 6 on 12 cores Bilateral - all Gl 3+3 LBL 5%, LMM 70%, DEMIAN 60%, HAYDEN 80%, RBM 5%, RMM 5% Total 225/1200 = 19%. TNM Classification of Malignant Tumours (TNM) T1c. The D'Mariam (NCCN) risk category is Low Risk (PSA< 10, Gl < 7, T1c) Group 1. Initial therapy included Primary treatment 09/05 , Prostatectomy (RRP/Robotic) - Dr Braxton Muñoz. Recent labs included 10/05 < 0.05 03/06 < 0.05, 06/06 < 0.1, 09/06- < 0.05, 01/05 <0.1, 05/07 <0.1, 08/07 <0.1, 02/06 <0.1 Recent imaging included 07/06 MRI - no clinically significant lesions seen Erectile dysfunction Secondary to prostatectomy Failed to regain function surgery. Trialed on medications and pump Good response to injectable TriMix - 0.35cc PFS Medical History Neuropathy Nephrolithiasis Anxiety Gastroesophageal reflux disease without esophagitis Prostate cancer Elevated PSA Bilateral hand numbness Carpal tunnel syndrome Surgical History H/O prostatectomy H/O lithotripsy History of prostate biopsy Social History Patient Tobacco Use Status: Never used Tobacco Review of Systems Const Denies chills and Denies fever(s) Card Reports no additional complaints and Denies syncope Resp Denies cough GI Denies abdominal pain and Denies heartburn Reports as per HPI and Denies change in libido Neuro Denies syncope Psych Denies change in libido Endo Denies change in libido Physical Exam Const General: cooperative, healthy appearing, comfortable and no acute distress Orientation/consciousness: patient oriented x3 HEENT Face and sinus: Yes normal facial exam Mouth: moist mucous membranes Neck Neck: Yes normal visual inspection, Yes full ROM and Yes trachea midline Chest Chest palpation & inspection: normal inspection of the chest Resp Effort & Inspection: normal respiratory effort, able to speak in complete sentences and no respiratory distress GI Inspection: Yes normal to inspection Back/Spine/Pelvis Cervical Spine: normal cervical lordosis Thoracic/Lumbar Spine: thoracic and lumbar spine normal to inspection Skin General skin exam: no rashes or lesions noted Neuro General: patient oriented x3, gait normal, tone normal and moves all extremities Extrem General: Yes normal to inspection and Yes capillary refill normal Assessment & Plan Assessment & Plan (1) Erectile dysfunction due to arterial insufficiency: Code(s): N52.01 - Erectile dysfunction due to arterial insufficiency Category: Medical (2) Prostate cancer: Comment: Low-grade low volume disease late 2018 Code(s): C61 - Malignant neoplasm of prostate Category: Medical Plan 12 month follow-up PSA Orders: Orders Prostate Specific Antigen 364 Days C61 - Malignant neoplasm of prostate Patient Instructions: Imaging studies, laboratory and physical exam results were discussed and reviewed in detail. No major barriers to patient understanding were identified. An opportunity to ask questions regarding the treatment plan was provided. All questions were answered. The patient expressed understanding and agreement with the above treatment plan. The patient is aware they should contact our office by phone for worsening of their current condition or the appearance of new urologic symptoms. Compliance is encouraged with any medications and followup testing that is ordered. It is a privilege to participate in the urologic care of your patient. If you have any questions or concerns regarding treatment for the above conditions, or other urologic issues, please do not hesitate to contact me. The office telephone contact is [phone]. This note is constructed using voice recognition software. While every effort has been made to ensure accuracy outside sales errors may have been included. Yours sincerely, Dr Doug Sherwood MD, [facility] - Urology Providers of Expert, Compassionate Care for the Genitourinary System Coding Level of Care Code Est Pt Level 3 (92911) Diagnoses Erectile dysfunction due to arterial insufficiency N52.01 Prostate cancer C61
== END 2024-08-11 09:52 | disposition home or self-care (01) ==
PROVIDERS: PCP Internal Medicine Medical Oncology; Visit Provider Urology
DX: N52.01 Erectile dysfunction due to arterial insufficiency (principal); C61 Malignant neoplasm of prostate
CPT/HCPCS: 99213

== ENCOUNTER → 2024-08-11 09:29 | Outpatient (BNVA) | payer MEDICAID, SELFPAY | PROVIDERS: PCP Internal Medicine Medical Oncology; Visit Provider Urology | DX: N52.01 Erectile dysfunction due to arterial insufficiency (principal); C61 Malignant neoplasm of prostate | CPT/HCPCS: 99212 ==

== ENCOUNTER 2024-10-12 07:19 | Outpatient (REF) | payer MEDICAID, SELFPAY ==
--- OUTSIDE RECORDS SUMMARY | 2024-10-12 07:22 | XMS_ITS ---
Author Organization Homar Gayle III, MD Address [address] [place] [address] Care Team Providers Care Upholsterer Assembly Line Name Role Phone Homar Gayle Primary Care Provider [phone] REASON FOR VISIT Rx Refill Medications Medication [...] Date Provider Diagnosis Homar Gayle III, MD [address] [place] [address] [place] [address] 09/04/2024 Homar Gayle Plan Of Treatment Medication Medication Name Sig Start Date Stop Date Notes Ibuprofen 800 MG 1 tablet with food o r milk as needed Orally every 8 hrs for 30 days 08/23/2023 08/30/2025 Next Appt Details Provider Name:Homar Gayle, 10/13/2024 10:00:00 AM, [address] [place] [address] [address] [place], [address], Progress Notes * Ang GALVEZDOB: [birth year] (54 yo M)Acc No.[id number]:09/04/2024 Patient:Amarilys FINLEYto :1970???Age:54 Y???Sex:Male Address:[address] [place] [address] * Refills? Refill Ibuprofen Tablet, 800 MG, Orally, 90 Tablet, 1 tablet with food or milk as needed, every 8 hrs, 30 days, Refills=11 * true * Date:? Generated for Mayte bustamante/Robert/Deshaun on:?10/12/2024 07:22 AM EST
--- OUTSIDE RECORDS SUMMARY | 2024-10-12 07:22 | XMS_ITS ---
Author Organization Homar Gayle III, MD Address [address] [place] [address] Care Team Providers Care Grapple Operator Name Role Phone Homar Gayle Primary Care Provider [phone] Allergies Allergen (clinical drug ingredient) Drug/Non Drug [...] Date Provider Diagnosis Homar Gayle III, MD [address] [place] [address] [place] [address] 06/12/2024 Homar Gayle GERD (gastroesophage al reflux [...] occasional reflux, which is well controlled with dayw-fxr-ovwxdei medications. He will avoid eating late at [...] to skin use with Tens machine 10/23/2020 Pending Test Test Name Order Date PROFILE, FASTING (COMPREHENSIVE METABOLI C) 06/12/2024 PSA, TOTAL 06/12/2024 CBC WITH AUTO DIFF 06/12/2024 Lipid Panel 06/12/2024 Next Appt Details Follow Up: as scheduled, Araceli son: OV Provider Name:Homar Gayle, 10/13/2024 10:00:00 AM, [address] [place] [address] DR, [address], [place], [address], Progress Notes * GALVEZ, AngDOB: [birth year] (54 yo M)Acc No.[id number]:06/12/2024 Progress Notes Patient:?Maynor Ang Provider:?Homar Gayle MD :1970???Age:54 Y???Sex:Male Alfonso e:06/12/2024 Address:[address] [place] [address] [phone] Subjective: * Chief Complaints: * ???Inflammatory arthritisGER DHyperlipidemiaProstate cancerDepression * HPI: ???COVID-19 Screening:? He returns for medical management. The arthritic pain in his hands has flared and he has an appointment next week with rheumatology. We have discussed his options for treatment. His hearing loss is unchanged. His PSA is not detectable. Esophageal reflux symptoms are controlled. He continues to try to lose weight. He says his depression is very minor at this time. ?Questions?Have you experienced fever, chills, cough, sore throat, shortness of breath, difficulty breathing, muscle aches, loss of taste or smell??No ?Have you been exposed to the virus within the last 10 days??No ?Have you travelled internationally in the last 10 days??No ?Have you been exposed to COVID-19 in the past??Yes * ROS:?General/Constitutional:?pain?Pain from arthritis in fingers hands wrists and neck.?Chills?denies.?Fatigue?admits.?Fever?denies.?ENT:?Decreased hearing?in both ears.?Respiratory:?Cough?denies.?Cardiovascular:?Chest pain with exertion?denies.?Dyspnea on exertion?denies.?Shortness of breath?denies.?Gastrointestinal:?Constipation?occasional.?Decreased appetite?denies.?Diarrhea?denies.?Heartburn?controlled with medications.?Nausea?denies.?Rectal bleeding?denies.?Vomiting?denies.?Hematology:?bruising?denies.?petechiae?denies.?Swollen glands?none have been noted.?Genitourinary:?Frequent urination?once a night.?Musculoskeletal:?Muscle aches?denies.?Painful joints??handsHis wrists fingers and neck.?Sciatica?denies.?Weakness?denies.?Skin:?Itching?denies.?Rash?denies.?Skin lesion(s)?denies.?Neurologic:?Difficulty speaking?denies.?Dizziness?denies.?Headache?denies.?Low back pain?denies.?Psychiatric:?Depressed mood?which is mild.? * Medical History:? * Surgical History:?lithotrips y 01/2011carpal tunnel release, right wrist 10/2014 * Hospitalization/Major Diagno stic Procedure:?PROSTATE BIOPSY 05/2019 * Family History:?Father: dece ased 28 yrs, homicide.?Mother: alive 57 yrs, well.?Spouse: alive 38 yrs.?6 brother(s) , 1 sister(s) . 1 son(s) , 3 daughter(s) - healthy. .? A brother in infancy. His mother lives in [place]. He is not aware of any family history of substance use disorder or addiction or mental illness. 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 He was born in [facility]. He enjoys kick boxing and art. He is not aware of any family history of mental illness or substance use disorder or addiction. There is no history of cancer in the family. * Medications:?TakingIbuprofen 800 MG Tablet 1 tablet with food [...] reviewed and reconciled with the patient * Allergies:?Dexamethasoneno[A llergies Verified] Objective: * Vitals:?Ht: 65, Wt: 188, BMI :31.28, BP: 136/85, HR: 67, Temp: 98.4, Wt-k.28. * ???Past Orders: Lab:Prostate Specific Antige n * Order Date 06/12/2024 02/08/2024 08/07/2023 Prostate Specific Antigen < 0.10 (Ref Range: <0.05-4.0 ng/mL) < 0.10 (Ref Range: <0.05-4.0 ng/mL) < 0.10 (Ref Range: <0.05-4.0 ng/mL) * Lab:Lipid Panel * Order Date 06/12/2024 02/08/2024 07/19/2023 Triglycerides 197?H (Ref Range: <150 mg/dL) 256?H (Ref Range: <150 mg/dL) 190?H (Ref Range: <150 mg/dL) Cholesterol 234?H (Ref Range: <200 mg/dL) 255?H (Ref Range: <200 mg/dL) 242?H (Ref Range: <200 mg/dL) LDL Cholesterol Calculated 142?H (Ref Range: <100 mg/dL) 155?H (Ref Range: <100 mg/dL) 156?H (Ref Range: <100 mg/dL) HDL Cholesterol 53 (Ref Range: >40 mg/dL) 49 (Ref Range: >40 mg/dL) 48 (Ref Range: >40 mg/dL) * Lab:[facility] Martinez l Fast * Order Date 06/12/2024 02/08/2024 [...] 26 (Ref Range: 22-29 mmol/L) Anion Gap 10?L (Ref Range: 12-20) 11?L (Ref Range: 12-20) 13 (Ref Range: 12-20) Blood Urea Nitrogen 16 (Ref Range: 9-16 mg/dL) 17?H (Ref Range: 9-16 mg/dL) 11 (Ref Range: 9-16 mg/dL) Creatinine 1.15 (Ref Range: 0.5-1.4 mg/dL) 1.14 (Ref Range: 0.5-1.4 mg/dL) 1.00 (Ref Range: 0.5-1.4 mg/dL) Estimated Glomerular Filt Rate > 60 > 60 > 60 Glucose Fasting 100?H (Ref Range: 60-99 mg/dL) 97 (Ref Range: [...] Blood Count 5.80 (Ref Range: 4.60-5.80 X10*6/uL) 6.18?H (Ref Range: 4.60-5.80 X10*6/uL) 5.86?H (Ref Range: 4.60-5.80 X10*6/uL) Hemoglobin 16.4 (Ref [...] Range: 45-73 %) Imm Gran Pct Auto 0.9?H (Ref Range: 0.0-0.4 %) 1.1?H (Ref Range: 0.0-0.4 %) 0.8?H (Ref Range: 0.0-0.4 %) Lymphocytes Percent Auto 19.9?L (Ref Range: 20-40 %) 19.6?L (Ref Range: 20-40 %) 22.8 (Ref Range: 20-40 %) Monocytes Percent Auto 11.3?H (Ref Range: 2-11 %) 11.4?H (Ref Range: 2-11 %) 10.5 (Ref Range: [...] Range: 2.0-8.3 x10*3/uL) Imm Gran Abs Auto 0.06?H (Ref Range: 0.00-0.03 X10*3/uL) 0.08?H (Ref Range: 0.00-0.03 X10*3/uL) 0.05?H (Ref Range: 0.00-0.03 X10*3/uL) Lymphocytes Absolute Auto [...] 0.000 (Ref Range: 0.0-0.012 X10*3/uL) * Examination: ???General Examination: ?GENERAL APPEARANCE:?pleasant, well nourished, well developed, in no acute distress, calm and relaxed , man.?HEAD:?atraumatic, normocephalic.?EYES:?eomi, perrla, anicteric, conjugate.?EARS:?normal.?NOSE:?septum intact.?ORAL CAVITY:?normal, unremarkable.?NECK/THYROID:?no jugular venous distention, no carotid bruit, thyroid normal.?LYMPH NODES:?no enlarged lymph nodes,spleen normal.?SKIN:?no suspicious lesions, anicteric.?HEART:?no clicks, gallops, murmurs, or rubs, regular rhythm, S1, S2 normal, no s3, or vascular bruits.?LUNGS:?clear to auscultation .?BREASTS:??no masses palpable bilaterally.?ABDOMEN:?bowel sounds normal, no ascites, no organomegaly, no mass.?RECTAL EXAM:?not examined.?MUSCULOSKELETAL:?extremities unremarkable, no clubbing, cyanosis or edema, Mild arthritic changes in fingers and hands mild decreased range of motion.?PERIPHERAL PULSES:?normal.?NEUROLOGIC:?alert and oriented, cranial nerves 2-12 grossly intact, deep tendon reflexes 2+ symmetrical, motor strength normal upper and lower extremities, sensory exam intact.?PSYCH:?alert, oriented, Mild depressive symptoms.? Assessment: * Assessment: 1.?GERD (gastroesophageal re flux disease) - K21.9 (Primary), He has occasional reflux, which is well controlled with [id number] medications. He will avoid eating late at night.?2. Carcinoma of prostate - C61, His PSA remains undetectable. There was no sign on examination of recurrent disease.?3.?Mixed hyperlipidemia - E78.2, His total cholesterol is down from 255-234. He has lost 1 pound. He continues to make efforts at lifestyle modification to reduce his?4.?Osteoarthritis cervical spine - M47.812, He continues to have mild to moderate neck and shoulder pain.?5.?Carpal tunnel syndrome - G56.00, He continues to have symptoms in both hands. He is scheduled for revisional surgery later in the fall.?6.?Obesity (BMI 30.0-34.9) - E66.9, His body mass index is 31. He weighs 188 pounds. He remains obese. We have discussed his diet and nutrition. We made a plan to lose weight at a rate of one half of a pound per week.?7.?Reactive depression - F32.9, His psychotherapy continues. The therapist has referred him to a prescriber.?8.?Hearing loss, unspecified hearing loss type, unspecified laterality - H91.90, His hearing will be monitored. He has had no change in his hearing, which is slightly diminished. He says he does not need amplification at this time.? Plan: * Treatment: 2.?Carcinoma of prostate?LAB: PROFILE, FASTING (COMPREHENSIVE METABOLIC) ?LAB: PSA, TOTAL ?LAB: CBC WITH AUTO DIFF ?LAB: Lipid Panel 3.?Mixed hyperlipidemia?LAB: PROFILE, FASTING (COMPREHENSIVE METABOLIC) ?LAB: PSA, TOTAL ?LAB: CBC WITH AUTO DIFF ?LAB: Lipid Panel 4.?Others? Continue Ibuprofen Tablet, 800 MG, 1 tablet with food or milk as needed, Orally, every 8 hrs.?? * Procedure Codes:? * Preventive Medicine:? ??Counseling:?Care goal follow-up plan:?Counseling for abnormal BMI given?Yes ?Above Normal BMI Follow-up?Dietary management education, guidance, and counseling, Dietary needs education, Exercise promotion: strength training, Exercise promotion: stretching, Feeding regime, Giving encouragement to exercise, Lifestyle education regarding diet, Nutrition / feeding management, Nutrition therapy, Prescribed activity/exercise education, Prescribed diet education, Prescribed dietary intake, Special diet education, Weight monitoring , Intervention, Order not done: Medical or Other reason not done * Follow Up:?as scheduled (Araceli son: OV) * Images: * Sign off status: Completed true * Provider:?Homar Gayle MD Date:?05/19 Generated for Hardiki dianna/Robert/eTransmitting on:?10/12/2024 07:22 AM EST History and Physical Notes * HPI (History of Present Illness) Category Sub-Category Detail Notes COVID-19 Screening Questions Have you had any new onset fever, chills, cough, congestion, sore throat, shortness of breath, muscle aches?: No Have you been exposed to the virus withi n the last 10 days?: No Have you travelled internationally in [facility] last 10 days?: No Have you been [...]
--- OUTSIDE RECORDS SUMMARY | 2024-10-12 07:22 | XMS_ITS ---
Author Organization Homar Gayle III, MD Address [address] [place] [address] Care Team Providers Care Compatibility Test Engineer Name Role Phone Homar Gayle Primary Care Provider Allergies Allergen (clinical drug ingredient) Drug/Non Drug Allergy documented on EMR Reaction Allergy Type Onset Date Status dexamethasone Dexamethasone Unknown Drug Allergy Active REASON FOR VISIT ED, Prostate cancer, Arthritis, Depression, Hearing loss, GERD Medications Medication SIG (Take, Route, Frequency, Duration) Notes Start Date End Date Status Electrodes 2 x2 /Reusable - as directed apply to skin use with Tens machine 10/23/2020 Active Ibuprofen 800 MG 1 tablet with food o r milk as needed Orally every 8 hrs 08/23/2023 Active Social History Tobacco Use: Social History Observation Description Date Details (start date - stop date) Never Smoker NA - NA Sex Assigned At : Social History Observation Description Sex Assigned At Male Tobacco Use/Smoking Question Answer Notes Patient is a nonsmoker Additional Findings: Tobacco Non-User Aggressive non-smoker Vital Signs Temperature 99.0 degrees Fahrenheit 02/10/20 24 Blood pressure systolic 140 mm Hg 02/10/20 24 Blood pressure diastolic 81 mm Hg 024 Heart Rate 77 /min 02/10/2024 Height 65 in 02/10/2024 Weight 189 lbs 02/10/2024 BMI 31.45 kg/m2 02/10/2024 Encounters Encounter Location Date Provider Diagnosis Homar Gayle III, MD [address] [place] [address] [place] [address] 02/10/2024 Homar Gayle GERD (gastroesophage al reflux disease) K21.9 ; Mixed hyperlipidemia E78.2 ; Obesity (BMI 30.0-34.9) E66.9 ; Osteoarthritis cervical spine M47.812 and Carcinoma of prostate C61 Assessments Encounter Date Diagnosis (ICD Code) Assessment Notes Treat ment Notes Treatment Clinical Notes 02/10/2024 GERD (gastroesophageal reflux disease) (ICD-10 - K21.9) He has occasional reflux, which is well controlled with gapv-dyv-rndoezq medications. He will avoid eating late at night. 02/10/2024 Mixed hyperlipidemia (ICD-10 - E78.2) This total cholesterol and LDL and triglycerides are elevated. I have offered him steroid medication and he will consider it. 02/10/2024 Obesity (BMI 30.0-34.9) (ICD-10 - E66.9) His body mass index is 31.45. He weighs 189 pounds. He remains obese. We have discussed his diet and nutrition. We made a plan to lose weight at a rate of one half of a pound per week. 02/10/2024 Osteoarthritis cervical spine (ICD-10 - M47.812) He continues to have mild to moderate neck and shoulder pain. 02/10/2024 Carcinoma of prostat e (ICD-10 - C61) He remains in remission. He sees urologist regularly. His PSA is nondetectable. Plan Of Treatment Medication Medication Name Sig Start Date Stop Date Notes Electrodes 2 x2 /Reusable - as directed apply to skin use with Tens machine 10/23/2020 Ibuprofen 800 MG 1 tablet with food o r milk as needed Orally every 8 hrs 08/23/2023 Next Appt Details Follow Up: 4 Months, Reason: OV Provider Name:Homar Gayle, 10/13/2024 10:00:00 AM, [address] [place] [address] [address] [place] [address], [place], [address], Progress Notes * GALVEZAngDOB: [birth year] (54 yo M)Acc No.[id number]:02/10/2024 Progress Notes Patient:?Amarilys Galvezto Provider:?Homar Gayle MD :1970???Age:54 Y???Sex:Male Alfonso e:02/10/2024 Address:[address] [place] [address] [id number] Subjective: * Chief Complaints: * ???EDProstate cancerArthriti sDepressionHearing lossGERD * HPI: ???COVID-19 Screening:? He returns for follow-up of his medical issues. His prostate cancer remains in remission. He continues to have erectile dysfunction after treatment. He sees his urologist tomorrow. He is able to achieve erections with injections of medication but not with oral medication. His arthritis has diminished. He is conducting all of the activities of daily life without difficulty. ?Questions?Have you experienced fever, chills, cough, sore throat, shortness of breath, difficulty breathing, muscle aches, loss of taste or smell??No ?Have you been exposed to the virus within the last 10 days??No ?Have you travelled internationally in the last 10 days??No ?Have you been exposed to COVID-19 in the past??Yes * ROS:?General/Constitutional:?pain?Wrists and knees.?Chills?denies.?Fatigue?admits.?Fever?denies.?ENT:?Decreased hearing?in both ears.?Respiratory:?Cough?denies.?Cardiovascular:?Chest pain with exertion?denies.?Dyspnea on exertion?denies.?Shortness of breath?denies.?Gastrointestinal:?Constipation?occasional.?Decreased appetite?denies.?Diarrhea?denies.?Heartburn?denies.?Nausea?denies.?Rectal bleeding?denies.?Vomiting?denies.?Hematology:?bruising?denies.?petechiae?denies.?Swollen glands?none have been noted.?Genitourinary:?Frequent urination?denies.?Musculoskeletal:?Muscle aches?denies.?Painful joints?denies.?Sciatica?denies.?Weakness?denies.?Skin:?Itching?denies.?Rash?denies.?Skin lesion(s)?denies.?Neurologic:?Difficulty speaking?denies.?Dizziness?denies.?Headache?denies.?Low back pain?denies.?Psychiatric:?Depressed mood?which is mild.? * Medical History:? * Surgical History:?lithotrips y 01/2011carpal tunnel release, right wrist 10/2014 * Hospitalization/Major Diagno stic Procedure:?PROSTATE BIOPSY 05/2019 * Family History:?Father: dece ased 28 yrs, homicide.?Mother: alive 57 yrs, well.?Spouse: alive 38 yrs.?6 brother(s) , 1 sister(s) . 1 son(s) , 3 daughter(s) - healthy. .? A brother in infancy. His mother lives in [place]. He is not aware of any family history of substance use disorder or addiction or mental illness. 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 He was born in [facility]. He enjoys kick boxing and art. [...] llergies Verified] Objective: * Vitals:?Ht: 65, Wt: 189, BMI :31.45, BP: 140/81, HR: 77, Temp: 99.0, Wt-k.73. * ???Past Orders: Lab:Prostate Specific Antige n * Order Date 02/08/2024 08/07/2023 02/02/2023 Prostate Specific Antigen < 0.10 (Ref Range: <0.05-4.0 ng/mL) < 0.10 (Ref Range: <0.05-4.0 ng/mL) < 0.10 (Ref Range: <0.05-4.0 ng/mL) * Lab:Lipid Panel * Order Date 02/08/2024 07/19/2023 02/02/2023 Triglycerides 256?H (Ref Range: <150 mg/dL) 190?H (Ref Range: <150 mg/dL) 263 (Ref Range: mg/dL) Cholesterol 255?H (Ref Range: <200 mg/dL) 242?H (Ref Range: <200 mg/dL) 239 (Ref Range: mg/dL) LDL Cholesterol Calculated 155?H (Ref Range: <100 mg/dL) 156?H (Ref Range: <100 mg/dL) 140 (Ref Range: mg/dl) HDL Cholesterol 49 (Ref Range: >40 mg/dL) 48 (Ref Range: >40 mg/dL) 47 (Ref Range: mg/dL) * Lab:Comprehensive [place]. Pane l Fast * Order Date 02/08/2024 07/19/2023 02/02/2023 Sodium 143 (Ref Range: 135-145 mmol/L) 142 (Ref Range: 135-145 mmol/L) 142 (Ref Range: 135-145 mmol/L) Bilirubin Total 0.8 (Ref Range: 0.0-1.0 mg/dL) 1.0 (Ref Range: 0.0-1.0 mg/dL) 1.0 (Ref Range: 0.0-1.0 mg/dL) Aspartate Amino Transferase 23 (Ref Range: 5-37 U/L) 22 (Ref Range: 5-37 U/L) 21 (Ref Range: 5-37 U/L) Alanine Aminotransferase 35 (Ref Range: 0-40 U/L) 23 (Ref Range: 0-40 U/L) 28 (Ref Range: 0-40 U/L) Total Protein 7.8 (Ref Range: 6.5-8.0 g/dL) 7.2 (Ref Range: 6.5-8.0 g/dL) 6.9 (Ref Range: 6.5-8.0 g/dL) Albumin Level 4.7 (Ref Range: 3.5-5.0 g/dL) 4.5 (Ref Range: 3.5-5.0 g/dL) 4.6 (Ref Range: 3.5-5.0 g/dL) Alkaline Phosphatase 59 (Ref Range: 39-117 U/L) 59 (Ref Range: 39-117 U/L) 60 (Ref Range: 39-117 U/L) Potassium 4.2 (Ref Range: 3.3-5.1 mmol/L) 4.2 (Ref Range: 3.3-5.1 mmol/L) 4.5 (Ref Range: 3.3-5.1 mmol/L) Chloride 107 (Ref Range: 96-108 mmol/L) 107 (Ref Range: 96-108 mmol/L) 107 (Ref Range: 96-108 mmol/L) Carbon Dioxide 29 (Ref Range: 22-29 mmol/L) 26 (Ref Range: 22-29 mmol/L) 27 (Ref Range: 22-29 mmol/L) Anion Gap 11?L (Ref Range: 12-20) 13 (Ref Range: 12-20) 13 (Ref Range: 12-20) Blood Urea Nitrogen 17?H (Ref Range: 9-16 mg/dL) 11 (Ref Range: 9-16 mg/dL) 14 (Ref Range: 9-16 mg/dL) Creatinine 1.14 (Ref Range: 0.5-1.4 mg/dL) 1.00 (Ref Range: 0.5-1.4 mg/dL) 1.01 (Ref Range: 0.5-1.4 mg/dL) Estimated Glomerular Filt Rate > 60 > 60 > 60 Glucose Fasting 97 (Ref Range: 60-99 mg/dL) 88 (Ref Range: 60-99 mg/dL) 87 (Ref Range: 60-99 mg/dL) Calcium 9.7 (Ref Range: 8.4-10.2 mg/dL) 9.6 (Ref Range: 8.4-10.2 mg/dL) 9.3 (Ref Range: 8.4-10.2 mg/dL) * Lab:Complete Blood Count Aut o Diff * Order Date 02/08/2024 07/19/2023 02/02/2023 White Blood Count 7.1 (Ref Range: 4.8-10.8 X10*3/uL) 6.0 (Ref Range: 4.8-10.8 X10*3/uL) 7.0 (Ref Range: 4.8-10.8 X10*3/uL) Red Blood Count 6.18?H (Ref Range: 4.60-5.80 X10*6/uL) 5.86?H (Ref Range: 4.60-5.80 X10*6/uL) 6.06?H (Ref Range: 4.60-5.80 X10*6/uL) Hemoglobin 17.5 (Ref Range: 14.0-18.0 g/dl) 16.5 (Ref Range: 14.0-18.0 g/dl) 16.8 (Ref Range: 14.0-18.0 g/dl) Hematocrit 51.0 (Ref Range: 42.0-52.0 %) 47.3 (Ref Range: 42.0-52.0 %) 49.6 (Ref Range: 42.0-52.0 %) Mean Corpuscular Volume 82.5 (Ref Range: 80.0-98.0 fL) 80.7 (Ref Range: 80.0-98.0 fL) 81.8 (Ref Range: 80.0-98.0 fL) Mean Corpuscular Hemoglobin 28.3 (Ref Range: 27.0-33.0 pg) 28.2 (Ref Range: 27.0-33.0 pg) 27.7 (Ref Range: 27.0-33.0 pg) Mean Corpuscular HGB Conc 34.3 (Ref Range: 31.0-36.0 g/dl) 34.9 (Ref Range: 31.0-36.0 g/dl) 33.9 (Ref Range: 31.0-36.0 g/dl) Red Cell Distribution Width 12.4 (Ref Range: 11.0-16.0 %) 12.1 (Ref Range: 11.0-16.0 %) 12.3 (Ref Range: 11.0-16.0 %) Platelet Count 235 (Ref Range: 160-400 X10*3/uL) 228 (Ref Range: 160-400 X10*3/uL) 236 (Ref Range: 160-400 X10*3/uL) Mean Platelet Volume 11.0 (Ref Range: 9.4-12.4 fL) 10.9 (Ref Range: 9.4-12.4 fL) 11.0 (Ref Range: 9.4-12.4 fL) Neutrophils Percent Auto 63.8 (Ref Range: 45-73 %) 62.4 (Ref Range: 45-73 %) 62.1 (Ref Range: 45-73 %) Imm Gran Pct Auto 1.1?H (Ref Range: 0.0-0.4 %) 0.8?H (Ref Range: 0.0-0.4 %) 1.1?H (Ref Range: 0.0-0.4 %) Lymphocytes Percent Auto 19.6?L (Ref Range: 20-40 %) 22.8 (Ref Range: 20-40 %) 24.1 (Ref Range: 20-40 %) Monocytes Percent Auto 11.4?H (Ref Range: 2-11 %) 10.5 (Ref Range: 2-11 %) 9.8 (Ref Range: 2-11 %) Eosinophils Percent Auto 3.5 (Ref Range: 0-4 %) 3.0 (Ref Range: 0-4 %) 2.2 (Ref Range: 0-4 %) Basophils Percent Auto 0.6 (Ref Range: 0-2 %) 0.5 (Ref Range: 0-2 %) 0.7 (Ref Range: 0-2 %) NRBC Pct Auto 0.0 (Ref Range: 0.0-0.2 /100WBC) 0.0 (Ref Range: 0.0-0.2 /100WBC) 0.0 (Ref Range: 0.0-0.2 /100WBC) Neutrophils Absolute Auto 4.6 (Ref Range: 2.0-8.3 x10*3/uL) 3.8 (Ref Range: 2.0-8.3 x10*3/uL) 4.3 (Ref Range: 2.0-8.3 x10*3/uL) Imm Gran Abs Auto 0.08?H (Ref Range: 0.00-0.03 X10*3/uL) 0.05?H (Ref Range: 0.00-0.03 X10*3/uL) 0.08?H (Ref Range: 0.00-0.03 X10*3/uL) Lymphocytes Absolute Auto 1.4 (Ref Range: 1.2-4.9 X10*3/uL) 1.4 (Ref Range: 1.2-4.9 X10*3/uL) 1.7 (Ref Range: 1.2-4.9 X10*3/uL) Monocytes Absolute Auto 0.8 (Ref Range: 0.1-1.2 X10*3/uL) 0.6 (Ref Range: 0.1-1.2 X10*3/uL) 0.7 (Ref Range: 0.1-1.2 X10*3/uL) Eosinophils Absolute Auto 0.3 (Ref Range: 0.0-0.4 X10*3/uL) 0.2 (Ref Range: 0.0-0.4 X10*3/uL) 0.2 (Ref Range: 0.0-0.4 X10*3/uL) Basophils Absolute Auto 0.0 (Ref Range: 0.0-0.2 X10*3/uL) 0.0 (Ref Range: 0.0-0.2 X10*3/uL) 0.1 (Ref Range: 0.0-0.2 X10*3/uL) NRBC Abs Auto 0.000 (Ref Range: 0.0-0.012 X10*3/uL) 0.000 (Ref Range: 0.0-0.012 X10*3/uL) 0.000 (Ref Range: 0.0-0.012 X10*3/uL) * Examination: ???General Examination: ?GENERAL APPEARANCE:?pleasant, well nourished, well developed, in no acute distress, calm and relaxed , obese , man.?HEAD:?atraumatic, normocephalic.?EYES:?eomi, perrla, anicteric, conjugate.?EARS:?normal.?NOSE:?septum intact.?ORAL CAVITY:?normal, unremarkable.?NECK/THYROID:?no jugular venous distention, no carotid bruit, thyroid normal.?LYMPH NODES:?no enlarged lymph nodes,spleen normal.?SKIN:?no suspicious lesions, anicteric.?HEART:?no clicks, gallops, murmurs, or rubs, regular rhythm, S1, S2 normal, no s3, or vascular bruits.?LUNGS:?clear to auscultation .?BREASTS:??no masses palpable bilaterally.?ABDOMEN:?bowel sounds normal, no ascites, no organomegaly, no mass , centripital obesity.?RECTAL EXAM:?not examined.?MUSCULOSKELETAL:?extremities unremarkable, no clubbing, cyanosis or edema.?PERIPHERAL PULSES:?normal.?NEUROLOGIC:?alert and oriented, cranial nerves 2-12 grossly intact, deep tendon reflexes 2+ symmetrical, motor strength normal upper and lower extremities, sensory exam intact.?PSYCH:?alert, oriented , mood depressed.? Assessment: * Assessment: 1.?GERD (gastroesophageal re flux disease) - K21.9 (Primary), He has occasional reflux, which is well controlled with bwwv-yok-kzrjsae medications. He will avoid eating late at night.?2. Mixed hyperlipidemia - E78.2, This total cholesterol and LDL and triglycerides are elevated. I have offered him steroid medication and he will consider it.?3.?Obesity (BMI 30.0-34.9) - E66.9, His body mass index is 31.45. He weighs 189 pounds. He remains obese. We have discussed his diet and nutrition. We made a plan to lose weight at a rate of one half of a pound per week.?4. Osteoarthritis cervical spine - M47.812, He continues to have mild to moderate neck and shoulder pain.?5.?Carcinoma of prostate - C61, He remains in remission. He sees urologist regularly. His PSA is nondetectable.? Plan: * Treatment: 2.?Mixed hyperlipidemia?LAB: PROFILE, FASTING (COMPREHENSIVE METABOLIC) ?LAB: PSA, TOTAL ?LAB: CBC WITH AUTO DIFF ?LAB: Lipid Panel 3.?Obesity (BMI 30.0-34.9)?LAB: PROFILE, FASTING (COMPREHENSIVE METABOLIC) ?LAB: PSA, TOTAL [...] or Other reason not done * Follow Up:?4 Months (Reason: OV) * Images: * Sign off status: Completed true * Provider:?Homar Gayle MD Date:?01/17 Generated for Mayte bustamante/Robert/eTkaykayitting on:?10/12/2024 07:22 AM EST History and Physical Notes * HPI (History of Present Illness) Category Sub-Category Detail Notes COVID-19 Screening Questions Have you had any new onset fever, chills, cough, congestion, sore throat, shortness of breath, muscle aches?: No Have you been exposed to the virus withi n the last 10 days?: No Have you travelled internationally in [facility] last 10 days?: No Have you been exposed to COVID-19 in the past?: Yes Examination Category Sub-Category Detail Notes General Examination GENERAL APPEARANCE: pleasant , well nourished, well developed, in no acute distress, calm and relaxed , obese , man HEAD: atraumatic, normocep halic EYES: eomi, perrla, anicte shaniqua, conjugate EARS: normal NOSE: septum intact NECK/THYROID: no jugular venous di stention, no carotid bruit, thyroid normal HEART: no clicks, gallops, murmurs, or rubs, regular rhythm, S1, S2 normal, no s3, or vascular bruits LUNGS: clear to auscultatio n ABDOMEN: bowel sounds normal, no ascites, no organomegaly, no mass , centripital obesity NEUROLOGIC: alert and oriented, cranial nerves 2-12 grossly intact, deep tendon reflexes 2+ symmetrical, motor strength normal upper and lower extremities, sensory exam intact SKIN: no suspicious lesion s, anicteric PERIPHERAL PULSES: normal BREASTS: no masses palpable b ilaterally MUSCULOSKELETAL: extremities unremark able, no clubbing, cyanosis or edema LYMPH NODES: no enlarged lymph no [place],spleen normal RECTAL EXAM: not examined PSYCH: alert, oriented , mo od depressed ORAL CAVITY: normal, unremarkable
--- OUTSIDE RECORDS SUMMARY | 2024-10-12 07:23 | XMS_ITS | Patient Health Record ---
Author Organization Homar Gayle III, MD Address [address] [place] [address] Care Team Providers Care Alterations Sewer Name Role Phone Homar Gayle Primary Care Provider Allergies Allergen (clinical drug ingredient) Drug/Non Drug Allergy documented on EMR Reaction Allergy Type Onset Date Status dexamethasone Dexamethasone Unknown Drug Allergy Active Results Component Value Reference Range Notes Complete Blood Count Auto Di ff Reviewed date:02/10/2024 09:45:16 AM Interpretation: Performing Lab:[facility], [address] [place] [phone] Notes/Report: White Blood Count 7.1 4.8-10.8 X10*3/uL Red Blood Count 6.18 4.60-5.80 X10*6/uL Hemoglobin 17.5 14.0-18.0 g/dl Hematocrit 51.0 42.0-52.0 % Mean Corpuscular Volume 82.5 80.0-98.0 fL Mean Corpuscular Hemoglobin 28.3 27.0-33.0 pg Mean Corpuscular HGB Conc 34.3 31.0-36.0 g/dl Red Cell Distribution Width 12.4 11.0-16.0 % Platelet Count 235 160-400 X10*3/uL Mean Platelet Volume 11.0 9.4-12.4 fL Neutrophils Percent Auto 63.8 45-73 % Imm Gran Pct Auto 1.1 0.0-0.4 % Lymphocytes Percent Auto 19.6 20-40 % Monocytes Percent Auto 11.4 2-11 % Eosinophils Percent Auto 3.5 0-4 % Basophils Percent Auto 0.6 0-2 % NRBC Pct Auto 0.0 0.0-0.2 /100WBC Neutrophils Absolute Auto 4.6 2.0-8.3 x10*3/u L Imm Gran Abs Auto 0.08 0.00-0.03 X10*3/uL Lymphocytes Absolute Auto 1.4 1.2-4.9 X10*3/u L Monocytes Absolute Auto 0.8 0.1-1.2 X10*3/uL Eosinophils Absolute Auto 0.3 0.0-0.4 X10*3/u L Basophils Absolute Auto 0.0 0.0-0.2 X10*3/uL NRBC Abs Auto 0.000 0.0-0.012 X10*3/uL Comprehensive [place]. Panel Fa st Reviewed date:02/10/2024 09:45:16 AM Interpretation: Performing Lab:[address] [phone] Notes/Report: Sodium 143 135-145 mmol/L Potassium 4.2 3.3-5.1 mmol/L Chloride 107 96-108 mmol/L Carbon Dioxide 29 22-29 mmol/L Anion Gap 11 12-20 Blood Urea Nitrogen 17 9-16 mg/dL Creatinine 1.14 0.5-1.4 mg/dL Estimated Glomerular Filt Rate > 60 NOTE: For -Canadian individuals, multiply the result by 1.210. Chronic Kidney Disease: Estimated GFR < 60 mL/min/1.73m2 Severe Kidney Disease: Estimated GFR < 15 mL/min/1.73m2 Glucose Fasting 97 60-99 mg/dL Calcium 9.7 8.4-10.2 mg/dL Bilirubin Total 0.8 0.0-1.0 mg/dL Aspartate Amino Transferase 23 5-37 U/L Alanine Aminotransferase 35 0-40 U/L Total Protein 7.8 6.5-8.0 g/dL Albumin Level 4.7 3.5-5.0 g/dL Alkaline Phosphatase 59 39-117 U/L Lipid Panel Reviewed date:02/10/2024 09:45:16 AM Interpretation: Performing Lab:[address] [phone] Notes/Report: Triglycerides 256 <150 mg/dL Desirable Triglyceride: less than 150 mg/dL Borderline High Triglyceride 150-199 mg/dL High Triglyceride: 200-499 mg/dL Very High Triglyceride: greater than or equal to 5OO mg/dL Cholesterol 255 <200 mg/dL Desirable Cholesterol: less than 200 mg/dL Borderline High Cholesterol: 200-239 mg/dL High Cholesterol: greater than 239 mg/dL LDL Cholesterol Calculated 155 <100 mg/dL Desirable LDL: less than 100 mg/dL Near Optimal/Above Optimal LDL: 110-129 mg/dL Borderline High LDL: 130-159 mg/dL High LDL: 160-189 mg/dL Very High LDL: greater than or equal to 190 mg/dL HDL Cholesterol 49 >40 mg/dL Desirable HDL: greater than 40 mg/dL Note: This HDL assay may give artificially low results in patients with liver disease. Prostate Specific Antigen Reviewed date:02/10/2024 09:45:16 AM Interpretation: Performing Lab:[facility], [address] [place] [phone] Notes/Report: Prostate Specific Antigen < 0.10 <0.05-4.0 ng/mL PSA methodology: Reid Alinity i Chemiluminescent Microparticle Immunoassay (CMIA) Complete Blood Count Auto Di ff Reviewed date:06/12/2024 12:02:25 PM Interpretation: Performing Lab:[facility], [address] [place] [phone] Notes/Report: White Blood Count 6.7 4.8-10.8 X10*3/uL Red Blood Count 5.80 4.60-5.80 X10*6/uL Hemoglobin 16.4 14.0-18.0 g/dl Hematocrit 47.0 42.0-52.0 % Mean Corpuscular Volume 81.0 80.0-98.0 fL Mean Corpuscular Hemoglobin 28.3 27.0-33.0 pg Mean Corpuscular HGB Conc 34.9 31.0-36.0 g/dl Red Cell Distribution Width 12.3 11.0-16.0 % Platelet Count 237 160-400 X10*3/uL Mean Platelet Volume 10.7 9.4-12.4 fL Neutrophils Percent Auto 64.0 45-73 % Imm Gran Pct Auto 0.9 0.0-0.4 % Lymphocytes Percent Auto 19.9 20-40 % Monocytes Percent Auto 11.3 2-11 % Eosinophils Percent Auto 3.3 0-4 % Basophils Percent Auto 0.6 0-2 % NRBC Pct Auto 0.0 0.0-0.2 /100WBC Neutrophils Absolute Auto 4.3 2.0-8.3 x10*3/u L Imm Gran Abs Auto 0.06 0.00-0.03 X10*3/uL Lymphocytes Absolute Auto 1.3 1.2-4.9 X10*3/u L Monocytes Absolute Auto 0.8 0.1-1.2 X10*3/uL Eosinophils Absolute Auto 0.2 0.0-0.4 X10*3/u L Basophils Absolute Auto 0.0 0.0-0.2 X10*3/uL NRBC Abs Auto 0.000 0.0-0.012 X10*3/uL Comprehensive [place]. Panel Fa Reviewed date:06/12/2024 12:02:25 PM Interpretation: Performing Lab:[facility], [address] [place] [phone] Notes/Report: Sodium 142 135-145 mmol/L Potassium 4.2 3.3-5.1 mmol/L Chloride 108 96-108 mmol/L Carbon Dioxide 28 22-29 mmol/L Anion Gap 10 12-20 Blood Urea Nitrogen 16 9-16 mg/dL Creatinine 1.15 0.5-1.4 mg/dL Estimated Glomerular Filt Rate > 60 NOTE: For -Canadian individuals, multiply the result by 1.210. Chronic Kidney Disease: Estimated GFR < 60 mL/min/1.73m2 Severe Kidney Disease: Estimated GFR < 15 mL/min/1.73m2 Glucose Fasting 100 60-99 mg/dL A fasting glucose from 100-125 mg/dl is considered impaired (pre-diabetes). Calcium 9.3 8.4-10.2 mg/dL Bilirubin Total 0.7 0.0-1.0 mg/dL Aspartate Amino Transferase 19 5-37 U/L Alanine Aminotransferase 22 0-40 U/L Total Protein 7.2 6.5-8.0 g/dL Albumin Level 4.4 3.5-5.0 g/dL Alkaline Phosphatase 57 39-117 U/L Lipid Panel Reviewed date:06/12/2024 12:02:25 PM Interpretation: Performing Lab:[facility], [address] [place] [phone] Notes/Report: Triglycerides 197 <150 mg/dL Desirable Triglyceride: less than 150 mg/dL Borderline High Triglyceride 150-199 mg/dL High Triglyceride: 200-499 mg/dL Very High Triglyceride: greater than or equal to 5OO mg/dL Cholesterol 234 <200 mg/dL Desirable Cholesterol: less than 200 mg/dL Borderline High Cholesterol: 200-239 mg/dL High Cholesterol: greater than 239 mg/dL LDL Cholesterol Calculated 142 <100 mg/dL Desirable LDL: less than 100 mg/dL Near Optimal/Above Optimal LDL: 110-129 mg/dL Borderline High LDL: 130-159 mg/dL High LDL: 160-189 mg/dL Very High LDL: greater than or equal to 190 mg/dL HDL Cholesterol 53 >40 mg/dL Desirable HDL: greater than 40 mg/dL Note: This HDL assay may give artificially low results in patients with liver disease. Prostate Specific Antigen Reviewed date:06/12/2024 12:02:25 PM Interpretation: Performing Lab:[address] [phone] Notes/Report: Prostate Specific Antigen < 0.10 <0.05-4.0 ng/mL PSA methodology: Reid Alinity i Chemiluminescent Microparticle Immunoassay (CMIA) Prostate Specific Antigen Reviewed date:08/13/2024 06:33:34 AM Interpretation: Performing Lab:[facility], [address] [place] [phone] Notes/Report: Prostate Specific Antigen < 0.10 <0.05-4.0 ng/mL PSA methodology: Reid Alinity i Chemiluminescent Microparticle Immunoassay (CMIA) Reason For Referral No Information Medications Medication SIG (Take, Route, Frequency, Duration) Notes Start Date End Date Status Ibuprofen 800 MG 1 tablet with food o r milk as needed Orally every 8 hrs for 30 days 08/23/2023 08/30/2025 Active Electrodes 2 x2 /Reusable - as directed apply to skin use with Tens machine 10/23/2020 Active Immunizations Vaccine Route Administration Date Status Comme nts COVID- 19 Vaccine Unknown 03/18/2021 Administered 1st d ose pfizer, no side effects COVID PFIZER Unknown 03/28/2021 Administered COVID PFIZER Unknown 04/18/2021 Administered COMIRNATY Pfizer-BioNTech Unknown 03/07/2022 Administered Influenza, quad Unknown 09/01/2019 Administered Social History Tobacco Use: Social History Observation Description Date Details (start date - stop date) Never Smoker NA - NA Sex Assigned At : Social History Observation Description Sex Assigned At Male Tobacco Use/Smoking Question Answer Notes Patient is a nonsmoker Additional Findings: Tobacco Non-User Aggressive non-smoker Alcohol Screen Question Answer Notes Did you have a drink containing alcohol in the p ast year? No Points 0 Interpretation Negative Problems Problem Type SNOMED Code ICD Code Onset Dates Problem Status W/U Status Risk Notes Problem 470256269270519 Obesity (BMI 30.0-34.9) (E66.9) Active confirmed His body mass index is 31. He weighs 188 pounds. He remains obese. We have discussed his diet and nutrition. We made a plan to lose weight at a rate of one half of a pound per week. Problem 840933807 GERD (gastroesophagea l reflux disease) (K21.9) Active confirmed He has occasional reflux, which is well controlled with kohz-ocz-cyjmi er medications. He will avoid eating late at night. Problem Arthritis (5963691) Arthritis (M19.90) Active confirmed He is experiencing another flare of inflammatory arthritis. He does not wish to take more prednisone or methotrexate. He is referred back to rheumatology for definitive treatment. Problem 640013175 Mixed hyperlipidemia (E78.2) Active confirmed His total cholesterol is down from 255-234. He has lost 1 pound. He continues to make efforts at lifestyle modification to reduce his Problem Arthropathy (515901976) Arthropathy, unspecified (M12.9) Active confirmed Problem 747547491 Neuropathy (G62.9) Active confirmed He was referred to orthopedics to reevaluate the carpal tunnel situation and consider a neuropathy at the level of the elbow. Problem 87222849 Carpal tunnel syndrome (G56.00) Active confirmed He continues to have symptoms in both hands. He is scheduled for revisional surgery later in the fall. 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 Problem 020029032 Carcinoma of prostate (C61) Active confirmed His PSA remains undetectable. There was no sign on examination of recurrent disease. Problem 96886197 Hearing loss, unspecified hearing loss type, unspecified laterality (H91.90) Active confirmed His hearing will be monitored. He has had no change in his hearing, which is slightly diminished. He says he does not need amplification at this time. Problem 31879902 Reactive depression (F32.9) Active confirmed His psychotherapy continues. The therapist has referred him to a prescriber. Vital Signs Heart Rate 67 /min 06/12/2024 Temperature 98.4 degrees Fahrenheit 06/12/2024 Blood pressure diastolic 85 mm Hg 06/12/2024 Height 65 in 06/12/2024 Blood pressure systolic 136 mm Hg 06/12/2024 Weight 188 lbs 06/12/2024 BMI 31.28 kg/m2 06/12/2024 Encounters Encounter Location Date Provider Diagnosis Homar Gayle III, MD [address] [place] [address] [place] [id number] 02/10/2024 Homar Gayle GERD (gastroesophage al reflux disease) K21.9 ; Mixed hyperlipidemia E78.2 ; Obesity (BMI 30.0-34.9) E66.9 ; Osteoarthritis cervical spine M47.812 and Carcinoma of prostate C61 Homar Gayle III, MD [address] [place] [address] [place] [phone] 06/12/2024 Homar Gayle GERD (gastroesophage al reflux disease) K21.9 ; Carcinoma of prostate C61 ; Mixed hyperlipidemia E78.2 ; Osteoarthritis cervical spine M47.812 ; Carpal tunnel syndrome G56.00 ; Obesity (BMI 30.0-34.9) E66.9 ; Reactive depression F32.9 and Hearing loss, unspecified hearing loss type, unspecified laterality H91.90 Homar Gayle III, MD [address] [place] [address] [place] [address] 09/04/2024 Homar Gayle Assessments Encounter Date Diagnosis (ICD Code) Assessment Notes Treat ment Notes Treatment Clinical Notes 02/10/2024 GERD (gastroesophageal reflux disease) (ICD-10 - K21.9) He has occasional reflux, which is well controlled with qlps-zbo-dqxxhik medications. He will avoid eating late at night. 02/10/2024 Mixed hyperlipidemia (ICD-10 - E78.2) This total cholesterol and LDL and triglycerides are elevated. I have offered him steroid medication and he will consider it. 06/12/2024 GERD (gastroesophageal reflux disease) (ICD-10 - K21.9) He has occasional reflux, which is well controlled with kpck-yef-xyrposb medications. He will avoid eating late at night. 06/12/2024 Carcinoma of prostat e (ICD-10 - C61) His PSA remains undetectable. There was no sign on examination of recurrent disease. 02/10/2024 Obesity (BMI 30.0-34.9) (ICD-10 - E66.9) His body mass index is 31.45. He weighs 189 pounds. He remains obese. We have discussed his diet and nutrition. We made a plan to lose weight at a rate of one half of a pound per week. 06/12/2024 Mixed hyperlipidemia (ICD-10 - E78.2) His total cholesterol is down from 255-234. He has lost 1 pound. He continues to make efforts at lifestyle modification to reduce his 02/10/2024 Osteoarthritis cervical spine (ICD-10 - M47.812) He continues to have mild to moderate neck and shoulder pain. 06/12/2024 Osteoarthritis cervical spine (ICD-10 - M47.812) He continues to have mild to moderate neck and shoulder pain. 02/10/2024 Carcinoma of prostat e (ICD-10 - C61) He remains in remission. He sees urologist regularly. His PSA is nondetectable. 06/12/2024 Carpal tunnel syndrome (ICD-10 - G56.00) [...] amplification at this time. Plan Of Treatment Pending Test Test Name Order Date PROFILE, FASTING (COMPREHENSIVE METABOLI C) 12/21/2018 PROFILE, FASTING (COMPREHENSIVE METABOLI C) 08/01/2020 PROFILE, FASTING (COMPREHENSIVE METABOLI C) 04/09/2022 PROFILE, FASTING (COMPREHENSIVE METABOLI C) 02/03/2023 PROFILE, FASTING (COMPREHENSIVE METABOLI C) 10/19/2018 PROFILE, FASTING (COMPREHENSIVE METABOLI C) 06/12/2024 PROFILE, FASTING (COMPREHENSIVE METABOLI C) 12/18/2021 PROFILE, FASTING (COMPREHENSIVE METABOLI C) 10/02/2022 PROFILE, FASTING (COMPREHENSIVE METABOLI C) 07/21/2023 PROFILE, FASTING (COMPREHENSIVE METABOLI C) 01/30/2021 PROFILE, FASTING (COMPREHENSIVE METABOLI C) 03/17/2023 PROFILE, RANDOM (COMPREHENSIVE METABOLIC ) 08/10/2022 LIPID PANEL 03/17/2023 LIPID PANEL 12/21/2018 LIPID PANEL 08/01/2020 LIPID PANEL 02/03/2023 LIPID PANEL 10/19/2018 LIPID PANEL 12/18/2021 LIPID PANEL 10/02/2022 LIPID PANEL 07/21/2023 PSA, TOTAL 01/30/2021 PSA, TOTAL 07/21/2023 PSA, TOTAL 08/10/2022 PSA, TOTAL 03/17/2023 PSA, TOTAL 04/09/2022 PSA, TOTAL 12/21/2018 PSA, TOTAL 06/12/2024 PSA, TOTAL 10/19/2018 PSA, TOTAL 12/18/2021 PSA, TOTAL+FREE 12/21/2018 PSA, TOTAL SCREEN 10/02/2022 CBC w DIFF 12/18/2021 CBC w DIFF 10/02/2022 CBC w DIFF 01/30/2021 CBC w DIFF 07/21/2023 CBC w DIFF 08/10/2022 CBC w DIFF 03/17/2023 CBC w DIFF 08/01/2020 CBC w DIFF 04/09/2022 CBC w DIFF 02/03/2023 CBC w DIFF 12/21/2018 CBC w DIFF 10/19/2018 XR CHEST 2 VIEW PA & LAT 10/09/2019 CBC WITH AUTO DIFF 06/12/2024 Lipid Panel 06/12/2024 Lipid Panel 01/30/2021 Lipid Panel 04/09/2022 Next Appt Details Provider Name:Homar Gayle, 10/13/2024 10:00:00 AM, [address] [place] [address] , [address], [place], [phone], Insurance Providers Payer Name Payer Address Payer Phone Subscriber Number Group Number Insured Name Patient Relationship to Insured Coverage Start Date Coverage End Date MEDICAID [address] [place] [id number] Ang Mcguire Self - patient is the insured Medical (General) History Medical History History ICD Code right shoulder tendonitis carpal tunnel syndrome anxiety gerd hydronephrosis nephrolithiasis neuropathy Prostate cancer August 2019, [id number] Surgical History Surgery Date(Month/Year) carpal tunnel release, right wrist 5 lithotripsy 01/2011 Hospitalization History Reason Date(Month/Year) PROSTATE BIOPSY 05/2019
--- OUTSIDE RECORDS SUMMARY | 2024-10-12 07:23 | XMS_ITS | Patient Health Record ---
Author Organization [facility] Address [address] [place] [address] Care Team Providers Care Bakery Products Checker Name Role Phone Irwin STANFORD, Homar Primary Care Provider UnavailMckinley George Jr Unavailable ALLERGIES No Known Allergies REASON FOR REFERRAL No Information MEDICATIONS Medication SIG (Take, Route, Frequency, Duration) Notes Start Date End Date Status Meloxicam 15 MG TAKE 1 TABLET BY NIC TH EVERY DAY Oral for 30 Active Ibuprofen 800 MG 1 tablet with food o r milk as needed Orally every 8 hrs 01/06/2023 Active MiraLax (colon prep) 17 GM/SCOOP mixed with Gatorade or Crystal Light Orally begin at 5:00 p.m. the day before the procedure for 1 day 01/06/2023 Active Escitalopram Oxalate 10 MG TAKE 1 TABLET BY MOUTH EVERY DAY FOR 30 DAYS Oral for 30 Active IMMUNIZATIONS Vaccine Route Administration Date Status Comme nts Influenza Unknown 08/05/2022 Administered SOCIAL HISTORY Tobacco Use: Social History Observation Description Date Details (start date - stop date) Never Smoker NA - NA Sex Assigned At : Social History Observation Description Sex Assigned At Unknown Tobacco Use/Smoking Question Answer Notes Patient is a nonsmoker Alcohol Screen Question Answer Notes Did you have a drink containing alcohol in the p ast year? No Points 0 Interpretation Negative PROBLEMS Problem Type ICD Code Onset Dates Problem Status W/U Status Risk SNOMED Code Notes Problem Colon cancer screening (Z12.11) Active confirmed 066837265 Problem buttermaker (current) use of non-steroidal anti-inflammato malaika (NSAID) (Z79.1) Active confirmed [id number] PLAN OF TREATMENT Future Test Test Name Order Date COLONOSCOPY 01/06/2023 Insurance Providers Payer Name Payer Address Payer Phone Subscriber Number Group Number Insured Name Patient Relationship to Insured Coverage Start Date Coverage End Date [employer]ICA[employer] OF [employer] [address] [place] [id number] ENMANUEL GALVEZ Self - patient is the insured MEDICAL (GENERAL) HISTORY Medical History History ICD Code Prostate cancer Tendinitis/carpal tunnel syndrome Gastroesophageal reflux disease Anxiety Nephrolithiasis Neuropathy Surgical History Surgery Date(Month/Year) Prostatectomy 2019 kidney stone, lithotripsy
[2024-10-12 07:37] LABS: MANUAL DIFF FLAG NO
[2024-10-12 07:58] LABS: Basophils Percent Auto 0.4 % (0-2); Eosinophils Absolute Auto 0.1 X10*3/uL (0.0-0.4); Eosinophils Percent Auto 1.9 % (0-4); Hematocrit 47.3 % (42.0-52.0); Hemoglobin 16.5 g/dl (14.0-18.0); Imm Gran Abs Auto 0.05 X10*3/uL (0.00-0.03); Imm Gran Pct Auto 0.7 % (0.0-0.4); Lymphocytes Absolute Auto 1.3 X10*3/uL (1.2-4.9); Lymphocytes Percent Auto 19.4 % (20-40); Mean Corpuscular HGB Conc 34.9 g/dl (31.0-36.0); Mean Corpuscular Hemoglobin 28.3 pg (27.0-33.0); Mean Corpuscular Volume 81.1 fL (80.0-98.0); Mean Platelet Volume 10.9 fL (9.4-12.4); Monocytes Absolute Auto 0.7 X10*3/uL (0.1-1.2); Monocytes Percent Auto 10.5 % (2-11); Neutrophils Absolute Auto 4.5 x10*3/uL (2.0-8.3); Neutrophils Percent Auto 67.1 % (45-73); Platelet Count 244 X10*3/uL (160-400); Red Blood Count 5.83 X10*6/uL (4.60-5.80); Red Cell Distribution Width 12.4 % (11.0-16.0); White Blood Count 6.7 X10*3/uL (4.8-10.8)
[2024-10-12 08:38] LABS: Alanine Aminotransferase 30 U/L (0-40); Albumin Level 4.5 g/dL (3.5-5.0); Alkaline Phosphatase 58 U/L (39-117); Anion Gap 10 (12-20); Aspartate Amino Transferase 24 U/L (5-37); Bilirubin Total 0.6 mg/dL (0.0-1.0); Blood Urea Nitrogen 16 mg/dL (9-16); Calcium 9.7 mg/dL (8.4-10.2); Carbon Dioxide 25 mmol/L (22-29); Chloride 109 mmol/L (96-108); Cholesterol 229 mg/dL (<200); Estimated Glomerular Filt Rate > 60; Glucose Fasting 96 mg/dL (60-99); HDL Cholesterol 48 mg/dL (>40); LDL Cholesterol Calculated 134 mg/dL (<100); Potassium 3.9 mmol/L (3.3-5.1); Sodium 140 mmol/L (135-145); Total Protein 7.3 g/dL (6.5-8.0); Triglycerides 237 mg/dL (<150)
[2024-10-12 08:44] LABS: Prostate Specific Antigen < 0.10 ng/mL (<0.05-4.0)
== END 2024-10-12 07:20 | disposition home or self-care (01) ==
LOC: HO.LAB 07:19
PROVIDERS: PCP Internal Medicine Medical Oncology; Visit Provider Internal Medicine Medical Oncology
DX: E66.3 Overweight (principal); C61 Malignant neoplasm of prostate; E78.2 Mixed hyperlipidemia
CPT/HCPCS: 36415; 80053; 80061; 84153; 85025

== ENCOUNTER 2024-12-03 11:56 | Emergency (ER) | payer MEDICAID, SELFPAY ==
--- NOTE | ~2024-12-03 | CT_ITS ---
CLINICAL HISTORY: R flank pain rad RLQ R testicle CT abdomen and pelvis without contrast Comparison: CT/REG/IN/SR - ABD PELV W IV CON ONLY [id number] - 09/09/19 11:02 EST Findings: No consolidation or effusion. Reference coronal image 57, there is a 2.5 mm calculus within the distal right ureter. Very mild right hydronephrosis. Additional tiny calculi are present within the right kidney. No definite left-sided calculus. Small subcentimeter exophytic structure likely a cyst arising from the lower pole of the left kidney, coronal 53. The unenhanced liver, spleen, adrenal glands and pancreas are unremarkable. Gallstones fill the gallbladder. No pericholecystic fluid. No bowel obstruction or free air. No pneumatosis, free fluid or abscess. No acute osseous finding. Impression: There is a 2.5 mm calculus along the distal right ureter with very mild right hydronephrosis. Additional calculi within the right kidney noted. Cholelithiasis without evidence of cholecystitis. This document has been electronically signed by: Gurvinder Cesar MD on 12/03/2024 13:42:40
[2024-12-03 12:20] VITALS: BP 192/80; PULSE 84; RESP 18; TEMP 36.3; O2SAT 100; BMI 30.4
--- NOTE | 2024-12-03 12:20 | ED_ITS ---
HPI - Back Pain/Injury General Chief Complaint: Back Pain/Injury Stated Complaint: back pain Time Seen by Provider: 12/03/24 19:46 Source: patient, RN notes reviewed and old records reviewed Mode of arrival: ambulatory Limitations: no limitations History of Present Illness ED Provider: Timmy JOSHI Narrative: 54-year-old male presents for evaluation of right lower abdominal pain and flank pain. His pain started yesterday. His pain has been intermittent. At worst his pain is an 8/10, sharp, stabbing. His pain radiates to his testicles pain He denies any testicular swelling He does have a history of kidney stones many years ago and reports this feels similar. He was previously follow up with Dr. Sherwood Related Data Home Medications ?Medication ?Instructions ?Recorded ?Confirmed meloxicam 15 mg tablet 15 mg PO DAILY 02/11/22 08/12/23 ibuprofen 800 mg tablet 800 mg PO Q8H PRN Pain 02/08/23 08/12/23 Previous Rx's ?Medication ?Instructions ?Recorded insulin syringe-needle U-100 0.5 #10 ea 08/15/21 mL 31 gauge x 5/16 (BD Insulin Syringe Ultra-Fine) tadalafil 10 mg tablet 10 mg PO DAILY 90 days #90 tabs 03/16/23 tadalafil 20 mg tablet 20 mg PO ONCE PRN sexual activity 03/16/23 30 days #30 tabs ondansetron 4 mg disintegrating 4 mg PO Q8H PRN nausea and 12/03/24 tablet vomiting #20 tabs oxycodone 5 mg tablet 5 mg PO Q6H PRN severe pain (scale 12/03/24 score 7-10) #10 tabs tamsulosin 0.4 mg capsule (Flomax) 0.4 mg PO DAILY #7 caps 12/03/24 Allergies Allergy/AdvReac Type Severity Reaction Status Date / Time diclofenac Allergy Unknown Itching Verified 12/03/24 12:21 Review of Systems 2 Constitutional: Constitutional: Denies body ache(s), Denies chills, Denies fever(s) and Denies headache(s) Eyes: Eyes: Denies blurry vision ENT: Denies headache(s) Cardiovascular: Cardiovascular: Denies chest pain Respiratory: Respiratory: Denies cough Gastrointestinal: Gastrointestinal: Reports abdominal pain, Reports nausea and Denies vomiting Genitourinary: Genitourinary: Denies difficulty urinating, Denies dysuria, Reports flank pain and Reports testicular pain Musculoskeletal: Musculoskeletal: Denies back pain Integumentary/Breasts: Skin/Breast: Denies rash Neurologic: Denies headache(s) PMFSH Past Medical History Medical History Neuropathy Nephrolithiasis Anxiety Gastroesophageal reflux disease without esophagitis Prostate cancer Elevated PSA Bilateral hand numbness Carpal tunnel syndrome Surgical History H/O prostatectomy H/O lithotripsy History of prostate biopsy Social History Social History Patient Tobacco Use Status: Never used Tobacco Smoked in Last 30 Days: No Use of substances other than those prescribed or required for medical reasons: No Advance Directives: No Advance Directives Information Provided: Yes Physical Exam 2 Vital Signs: Vital Signs: Last Vital Signs Temp 98.8 F 12/03/24 22:36 Pulse 73 12/03/24 22:36 Resp 16 12/03/24 22:36 BP 148/79 H 12/03/24 22:36 Pulse Ox 98 12/03/24 22:36 O2 Del Method Room Air 12/03/24 22:36 BMI result Body Mass Index 30.4 Const: General: healthy appearing, comfortable, no acute distress, alert and awake Nutritional Appearance: well nourished Orientation/consciousness: p atient oriented x3 HEENT: Head: Yes normocephalic and Yes atraumatic Eyes: Eyelids: Yes eyelids normal Conjunctivae: conjunctivae normal S clerae: sclerae normal Corneas: corneas normal Pupils: Equal, round and reactive pupils present EOM: EOMs intact bilaterally Neck: Neck: Yes full ROM Resp: Effort & Inspection: normal respiratory effort, able to speak in complete sentences and not labored GI: Inspection: No distended Palpation (GI): Soft to palpation, not firm, nontender, no guarding and not rigid : Other: Positive CVA tenderness on right Skin: General skin exam: elasticity normal Neuro: General: patient oriented x3 Cranial nerves: Yes Equal, round and reactive pupils present and Yes Bilaterally intact EOM present Cognition (Neuro): normal cognition Course Course Course Narrative: This is a Rapid Medical Exam performed in triage by Chayito Mckeon PA-C. Full HPI, ROS and PE to be performed by primary ED provider. 54 yo M pmhx prostate CA (not on chemo or radiation - in remission) presenting to the ED c/o R low back/flank pain radiating to RLQ & R testicle x yesterday. +urinary hesitancy. denies back injury/fall PE: +R CVAT & RLQ ttp, no rebound or guarding Plan: labs, UA, CT Medications Administered Discontinued Medications Generic Name Dose Route Start Last Admin Trade Name Freq PRN Reason Stop Dose Admin Sodium Chloride 1,000 mls @ 999 mls/hr 12/03/24 20:45 12/03/24 21:54 Ns IV 12/03/24 21:45 Infused .Q1H1M GINGER Infusion Ketorolac Tromethamine 30 mg 12/03/24 20:31 12/03/24 20:50 Ketorolac Tromethamine 30 Mg/Ml Vial IVPUSH 12/03/24 20:32 30 mg ONCE ONE Administration Medical Decision Making Medical Decision Making [facility] Narrative: 54-year-old male presents for evaluation of right flank pain. He had labs, urinalysis and a CT scan ordered in triage. He does have history exam consistent with obstructive uropathy. His labs are reassuring, no evidence of TERRI. There is blood in the urine but no evidence of infection. His CT scan shows a 2.5 mm obstructing distal ureter stone. I treated the patient IV fluids, Toradol. He reported his pain has improved greatly and he is comfortable with discharge at this time. He does have follow up with Dr. Sherwood Differential Diagnosis Differential Diagnoses: The differential diagnosis associated with the presentation includes Obstructive uropathy UTI Cystitis Muscle strain Inguinal hernia Lab Data [facility] Lab Attestation statement: I reviewed the patient's lab results. As above 12/03/24 12:31 12/03/24 12:31 Labs: Lab Results 12/03/24 Range/Units 12: WBC 9.0 (4.8-10.8) X10*3/uL RBC 5.86 H (4.60-5.80) X10*6/uL Hgb 16.6 (14.0-18.0) g/dl Hct 47.1 (42.0-52.0) % MCV 80.4 (80.0-98.0) fL MCH 28.3 (27.0-33.0) pg MCHC 35.2 (31.0-36.0) g/dl RDW 12.0 (11.0-16.0) % Plt Count 265 (160-400) X10*3/uL MPV 10.5 (9.4-12.4) fL Immature Gran % (Auto) 0.6 H (0.0-0.4) % Neut % (Auto) 75.7 H (45-73) % Lymph % (Auto) 14.9 L (20-40) % [place] % (Auto) 8.0 (2-11) % Eos % (Auto) 0.2 (0-4) % Baso % (Auto) 0.6 (0-2) % Lymph # (Auto) 1.3 (1.2-4.9) X10*3/uL [place] # (Auto) 0.7 (0.1-1.2) X10*3/uL Eos # (Auto) 0.0 (0.0-0.4) X10*3/uL Baso # (Auto) 0.1 (0.0-0.2) X10*3/uL Abs Immat Gran (auto) 0.05 H (0.00-0.03) X10*3/uL Absolute Neuts (auto) 6.8 (2.0-8.3) x10*3/uL Absolute Nucleated RBC 0.000 (0.0-0.012) X10*3/uL Nucleated RBC % (auto) 0.0 (0.0-0.2) /100WBC Sodium 140 (135-145) mmol/L Potassium 3.9 (3.3-5.1) mmol/L Chloride 107 (96-108) mmol/L Carbon Dioxide 22 (22-29) mmol/L Anion Gap 15 (12-20) BUN 15 (9-16) mg/dL Creatinine 1.06 (0.5-1.4) mg/dL Estim Creat Clear Calc 78.0 Estimated GFR > 60 Random Glucose 115 (60-115) mg/dL Calcium 9.7 (8.4-10.2) mg/dL Magnesium 1.8 (1.6-2.6) mg/dL Total Bilirubin 0.8 (0.0-1.0) mg/dL Direct Bilirubin 0.2 (0.0-0.5) mg/dL AST 27 (5-37) U/L ALT 26 (0-40) U/L Alkaline Phosphatase 67 (39-117) U/L Total Protein 7.8 (6.5-8.0) g/dL Albumin 4.5 (3.5-5.0) g/dL Lipase 20 (8-78) U/L Urine Color Dark Yellow Urine Appearance Clear Urine pH 7.5 (5.0-9.0) Ur Specific Lampe 1.025 (1.005-1.025) Urine Protein 30 (1+) H (Neg-Trace) mg/dL Urine Glucose (UA) Negative (Negative) mg/dL Urine Ketones 15 (Negative) mg/dL Urine Blood Large (3+) H (Negative) Urine Nitrite Negative (Negative) Ur Leukocyte Esterase Trace H (Negative) Urine RBC >20 H (0-2) /HPF Urine WBC 0-5 (0-5) /HPF Ur Squamous Epith Cells 0-2 (0-2) /HPF Urine Bacteria None Seen (None Seen) Hyaline Casts 0-2 (0-2) /LPF Independent Interpretation I performed an independent interpretation of an: CT Scan Interpretation: I agree with radiology interpretation Radiology Impression Discussion of test interpretation with radiology: I have reviewed the radiologist's reading. Radiologist Impression: Findings: No consolidation or effusion. Reference coronal image 57, there is a 2.5 mm calculus within the distal right ureter. Very mild right hydronephrosis. Additional tiny calculi are present within the right kidney. No definite left-sided calculus. Small subcentimeter exophytic structure likely a cyst arising from the lower pole of the left kidney, coronal 53. The unenhanced liver, spleen, adrenal glands and pancreas are unremarkable. Gallstones fill the gallbladder. No pericholecystic fluid. No bowel obstruction or free air. No pneumatosis, free fluid or abscess. No acute osseous finding. Impression: There is a 2.5 mm calculus along the distal right ureter with very mild right hydronephrosis. Additional calculi within the right kidney noted. Cholelithiasis without evidence of cholecystitis. This document has been electronically signed by: Gurvinder Cesar MD on 12/03/2024 13:42:40 Discharge Plan Discharge Clinical Impression: Acute unilateral obstructive uropathy Patient Disposition: Home, Self-Care Instructions: Ureteral Stones (ED) Additional Instructions: You had a 2.5 mm stone that was almost at your bladder. This was the cause of your pain. It should pass on its own. Drink lots of fluids. Take Flomax daily for the next week. You may use oxycodone for severe breakthrough pain that is not improved with ibuprofen or Tylenol This may make you drowsy, do not drink alcohol or drive after taking it. Follow-up with Dr. Sherwood Prescriptions: New ondansetron 4 mg tablet,disintegrating 4 mg PO Q8H PRN (Reason: nausea and vomiting) Qty: 20 0RF tamsulosin [Flomax] 0.4 mg capsule 0.4 mg PO DAILY Qty: 7 0RF oxycodone 5 mg tablet 5 mg PO Q6H PRN (Reason: severe pain (scale score 7-10)) Qty: 10 0RF Rx Instructions: Partial Fill upon patient request. No Action tadalafil 10 mg tablet 10 mg PO DAILY 90 Days Qty: 90 1RF tadalafil 20 mg tablet 20 mg PO ONCE PRN (Reason: sexual activity) 30 Days Qty: 30 0RF Rx Instructions: on demand ibuprofen 800 mg Tablet 800 mg PO Q8H PRN (Reason: Pain) (DME) insulin syringe-needle U-100 [BD Insulin Syringe Ultra-Fine] 0.5 mL 31 gauge x 5/16 syringe See Rx Instructions .Route Qty: 10 2RF Rx Instructions: As directed meloxicam 15 mg tablet 15 mg PO DAILY Referrals: Doug Sherwood MD [Physician] - (obstructive uropathy) Interventions: ED Discharge Assessment Last Done: 12/03/24 22:36 Discharge Date/Time: 12/03/24 22:38 Print Language: Prydeinig
[2024-12-03 12:49] LABS: MANUAL DIFF FLAG NO
[2024-12-03 12:52] LABS: Appearance Urine Clear; Basophils Absolute Auto 0.1 X10*3/uL (0.0-0.2); Basophils Percent Auto 0.6 % (0-2); Color Urine Dark Yellow; Eosinophils Percent Auto 0.2 % (0-4); Glucose Urine UA Negative (Negative); Hematocrit 47.1 % (42.0-52.0); Hemoglobin 16.6 g/dl (14.0-18.0); Imm Gran Abs Auto 0.05 X10*3/uL (0.00-0.03); Imm Gran Pct Auto 0.6 % (0.0-0.4); Leukocyte Esterase Urine Trace (Negative); Lymphocytes Absolute Auto 1.3 X10*3/uL (1.2-4.9); Lymphocytes Percent Auto 14.9 % (20-40); Mean Corpuscular HGB Conc 35.2 g/dl (31.0-36.0); Mean Corpuscular Hemoglobin 28.3 pg (27.0-33.0); Mean Corpuscular Volume 80.4 fL (80.0-98.0); Mean Platelet Volume 10.5 fL (9.4-12.4); Monocytes Absolute Auto 0.7 X10*3/uL (0.1-1.2); Neutrophils Absolute Auto 6.8 x10*3/uL (2.0-8.3); Neutrophils Percent Auto 75.7 % (45-73); Nitrite Urine Negative (Negative); PH 7.5 (5.0-9.0); Platelet Count 265 X10*3/uL (160-400); Red Blood Count 5.86 X10*6/uL (4.60-5.80); Specific Gravity - Urine 1.025 (1.005-1.025); UMIC TRIGGER UACC YES; Urine Blood Large (3+) (Negative); Urine Ketones 15 mg/dL (Negative); Urine Protein 30 (1+) mg/dL (Neg-Trace)
[2024-12-03 13:13] LABS: Alanine Aminotransferase 26 U/L (0-40); Albumin Level 4.5 g/dL (3.5-5.0); Alkaline Phosphatase 67 U/L (39-117); Anion Gap 15 (12-20); Aspartate Amino Transferase 27 U/L (5-37); Bilirubin Direct 0.2 mg/dL (0.0-0.5); Bilirubin Total 0.8 mg/dL (0.0-1.0); Blood Urea Nitrogen 15 mg/dL (9-16); Calcium 9.7 mg/dL (8.4-10.2); Carbon Dioxide 22 mmol/L (22-29); Chloride 107 mmol/L (96-108); Estimated Glomerular Filt Rate > 60; Glucose Random 115 mg/dL (60-115); Lipase 20 U/L (8-78); Magnesium 1.8 mg/dL (1.6-2.6); Potassium 3.9 mmol/L (3.3-5.1); Sodium 140 mmol/L (135-145); Total Protein 7.8 g/dL (6.5-8.0)
[2024-12-03 13:15] LABS: Bacteria Urine None Seen (None Seen); Hyaline Casts Urine 0-2 /LPF (0-2); RBC Urine >20 /HPF (0-2); Squamous Epithelial Cell Urine 0-2 /HPF (0-2); WBC Urine 0-5 /HPF (0-5)
[2024-12-03 19:27] VITALS: BP 153/82; PULSE 86; RESP 18; TEMP 37.4; O2SAT 96
--- NOTE | 2024-12-03 19:31 | PC.NURSE ---
Pt a&ox4, no signs of distress. Pt reports 9/10 flank pain that radiates to suprapubic area and testicles. Pt reports he has had this feeling before feels like a uti Plan of care ongoing.
[2024-12-03] MEDS: 0.9 % Sodium Chloride 1,000 ML 999 ML IV (20:49)
[2024-12-03] MEDS: Ketorolac Tromethamine 30 MG/ML VIAL IVPUSH (20:50)
--- NOTE | 2024-12-03 20:52 | PC.NURSE ---
Pt medicated per [facility] Plan of care ongoing.
[2024-12-03 22:21] VITALS: BP 148/79; PULSE 73; RESP 16; TEMP 37.1; O2SAT 98
[2024-12-03 22:36] VITALS: BP 148/79; PULSE 73; RESP 16; TEMP 37.1; O2SAT 98
== END 2024-12-03 22:38 | disposition home or self-care (01) ==
PROVIDERS: Physician Assistant; Emergency Provider Emergency Medicine Emergency Medical Services; PCP Internal Medicine Medical Oncology
DX: N20.1 Calculus of ureter (principal); M54.50 Low back pain, unspecified; R10.31 Right lower quadrant pain; R11.2 Nausea with vomiting, unspecified; Z79.899 Other long term (current) drug therapy
CPT/HCPCS: 36415; 74176; 80048; 80076; 81001; 83690; 83735; 85025; 96361; 96374; 99284; 99285; J1885

== ENCOUNTER → 2024-12-03 12:22 | Outpatient (BNV) | payer MEDICAID, SELFPAY | PROVIDERS: PCP Internal Medicine Medical Oncology; Visit Provider Radiology Vascular & Interventional Radiology | DX: R10.31 Right lower quadrant pain (principal) | CPT/HCPCS: 74176 ==

== ENCOUNTER 2025-01-19 08:47 | Outpatient (AMB) | payer MEDICAID, SELFPAY ==
--- NOTE | 2025-01-19 09:12 | MHC.OFFVIS ---
Intake Visit Reasons: Kidney Stones Intake Note: Patient is present for KIDNEY STONES Urology Medication:TADALAFIL Antibiotic Allergy:NONE Blood Thinner:NONE Applications Manager Required: No Allergies diclofenac Allergy (Unknown, Verified 01/19/25 09:13) Itching HPI Comments Details: Ang is a pleasant male. He is a patient Dr. Gayle. He is seen for the following urologic conditions - prostate cancer - erectile dysfunction - recent episode of stones Here for recent episode of nephrolithiasis Six mm stone identified at emergency room on CT scan Medical expulsion therapy successful Suggest lemon water fluid Follow-up 6 months with imaging PSA remains well controlled Response to TriMix maintained - 0.35cc per episode Good responses as needed Discussed penile prosthetic PSA 08/08 <0.05, 02/07 <0.1, 08/09 <0.1, 02/08 <0.1, 08/10 <0.1 Prostate cancer: Ketan 6. Robotic prostatectomy 08/2019. PSA remains undetectable Effective urinary control Prostate cancer was diagnosed 05/23/19 Dr Sherwood. Diagnosis was reached by needle biopsy, for elevated PSA, PSA at diagnosis 7.6 7%, size at TRUS 30gm. The Houston grade 3+3 - 6 on 12 cores Bilateral - all Gl 3+3 LBL 5%, LMM 70%, DEMIAN 60%, HAYDEN 80%, RBM 5%, RMM 5% Total 225/1200 = 19%. TNM Classification of Malignant Tumours (TNM) T1c. The D'Mariam (NCCN) risk category is Low Risk (PSA< 10, Gl < 7, T1c) Group 1. Initial therapy included Primary treatment 09/05 , Prostatectomy (RRP/Robotic) - Dr Braxton Muñoz. Recent labs included 10/05 < 0.05 03/06 < 0.05, 06/06 < 0.1, 09/06- < 0.05, 01/05 <0.1, 05/07 <0.1, 08/07 <0.1, 02/06 <0.1 Recent imaging included 07/06 MRI - no clinically significant lesions seen Erectile dysfunction Secondary to prostatectomy Failed to regain function surgery. Trialed on medications and pump Good response to injectable TriMix - 0.35cc Nephrolithiasis Imaging - 12/12 CT scan 6 mm distal left ureteric stone [facility] Medical History Neuropathy Nephrolithiasis Anxiety Gastroesophageal reflux disease without esophagitis Prostate cancer Elevated PSA Bilateral hand numbness Carpal tunnel syndrome Surgical History H/O prostatectomy H/O lithotripsy History of prostate biopsy Social History Patient Tobacco Use Status: Never used Tobacco Review of Systems Const Denies chills and Denies fever(s) Card Reports no additional complaints and Denies syncope Resp Denies cough GI Denies abdominal pain and Denies heartburn Reports as per HPI and Denies change in libido Neuro Denies syncope Psych Denies change in libido Endo Denies change in libido Physical Exam Const General: cooperative, healthy appearing, comfortable and no acute distress Orientation/consciousness: patient oriented x3 HEENT Face and sinus: Yes normal facial exam Mouth: moist mucous membranes Neck Neck: Yes normal visual inspection, Yes full ROM and Yes trachea midline Chest Chest palpation & inspection: normal inspection of the chest Resp Effort & Inspection: normal respiratory effort, able to speak in complete sentences and no respiratory distress GI Inspection: Yes normal to inspection Back/Spine/Pelvis Cervical Spine: normal cervical lordosis Thoracic/Lumbar Spine: thoracic and lumbar spine normal to inspection Skin General skin exam: no rashes or lesions noted Neuro General: patient oriented x3, gait normal, tone normal and moves all extremities Extrem General: Yes normal to inspection and Yes capillary refill normal Assessment & Plan Assessment & Plan (1) Nephrolithiasis: Code(s): N20.0 - Calculus of kidney Category: Medical Plan Six-month follow-up renal ultrasound Orders: Orders US renal BI 6 Months N20.0 - Calculus of kidney Patient Instructions: This note is constructed using voice recognition software. While every effort has been made to ensure accuracy senior sql server database developer errors may have been included. Imaging studies, laboratory and physical exam results were discussed and reviewed in detail. No major barriers to patient understanding were identified. An opportunity to ask questions regarding the treatment plan was provided. All questions were answered. The patient expressed understanding and agreement with the above treatment plan. The patient is aware they should contact our office by phone for worsening of their current condition or the appearance of new urologic symptoms. Compliance is encouraged with any medications and followup testing that is ordered. It is a privilege to participate in the urologic care of your patient. If you have any questions or concerns regarding treatment for the above conditions, or other urologic issues, please do not hesitate to contact me. The office telephone contact is [phone]. Sincerely, Dr Doug Sherwood MD, [facility] - Urology Compassionate Specialist Care for the Genitourinary System Coding Level of Care Code Est Pt Level 3 (38987) Diagnoses Nephrolithiasis N20.0
--- OUTSIDE RECORDS SUMMARY | 2025-01-19 09:17 | XMS_ITS | Referral Summary ---
Author Organization [facility] Address [address] [place] [address] Care Team Providers Care Book Or Script Editor Name Role Phone Homar Gayle Primary Care Provider [phone] Allergies Active Allergy Reactions Criticality Noted Date Comments Other Itching 08/25/2019 Pt states some muscle relaxant he took caused his throat to become itchy(pt does't remember the name of drug) Medications meloxicam (MOBIC) 15 mg tablet Take 15 mg by mouth daily as needed for pain. 10 9 Active acetaminophen (TYLENOL) 325 mg tablet Take 2 tablets (650 mg total) by mouth every 6 hours as needed for pain. 9 Active docusate sodium (COLACE) 100 mg capsule Take 1 capsule (100 mg total) by mouth 2 times a day as needed for constipation. 9 Active Additional Information Patient not taking.Reported on 07/22/2020 senna (SENOKOT) 8.6 mg tablet Take 2 tablets (17.2 mg total) by mouth daily as needed (constipation not relieved by colace). 9 Active Additional Information Patient not taking.Reported on 07/22/2020 oxyCODONE IR (ROXICODONE) 5 mg tablet Take 1 tablet (5 mg total) by mouth every 6 hours as needed for breakthrough pain. 3 tablet 9 Active Additional Information Patient not taking.Reported on 07/22/2020 levoFLOXacin (LEVAQUIN) 500 mg tablet Take 500 mg by mouth daily. Active ibuprofen (MOTRIN) 800 mg tablet Take 800 mg by mouth 3 times a day. 0 Active Active Problems Problem Noted Date Diagnosed Date Prostate cancer 08/25/2019 Immunizations Immunization Administration Dates Next Due Influenza, Injectable, Quadrivalent, Preservativ e Free 09/01/2019 Social History Tobacco Use Types Packs/Day Years Used Date Smoking Tobacco: Never Smokeless Tobacco: Never Alcohol Use Standard Drinks/Week Comments Not Currently 0 (1 standard drink = 0.6 oz pur e alcohol) Sex and Gender Information Value Date Recorded Sex Assigned at Male 01/07/2022 11:41 AM EDT Legal Sex Male 11:06 AM EDT Gender Identity Male 01/07/2022 11:41 AM EDT Sexual Orientation Straight 01/07/2022 11 :41 AM EDT Last Filed Vital Signs Vital Sign Reading Time Taken Comments Blood Pressure 158/78 09/13/2024 2:21 PM EST Pulse 101 09/13/2024 2:21 PM EST Temperature 36.7 ??C (98.1 ??F) 09/01/2019 3:00 PM ES T Respiratory Rate 18 09/01/2019 3:00 PM EST Oxygen Saturation 96% 09/01/2019 3:00 PM EST Inhaled Oxygen Concentration - - Weight 80.8 kg (178 lb 2.1 oz) 09/01/2019 6:26 A M EST Height 166 cm (5' 5.35 ) 08/28/2019 8:32 AM EST Body Mass Index 29.32 08/28/2019 8:32 AM EST Plan of Treatment Upcoming Encounters Date Type Department Care Team (Late st Contact Info) Description 08/22/2025 9:30 AM EST Follow-Up [facility] [address] [place] [address] Career Developer: Ernesto Soliman MD [address] [place] [address] Insurance [facility] Advance Directives Documents on File Type Date Recorded Patient Fiscal Agent Expl anation Health Care Proxy 08/18/2019 1:59 PM * Full Code (Latest Code Status on File) Date Activated Date Inactivated Comments 08/25/2019 5:36 AM 09/01/2019 9:53 PM Healthcare Agents on File Name Relationship Healthcare Agent Relationship Communication [place] Significant Other Health Care Agent Care Teams Book Or Script Editor Relationship Specialty Start Date End Date Homar Gayle [address] [place] [id number] PCP - General Hematology 06/14/19
--- OUTSIDE RECORDS SUMMARY | 2025-01-19 09:17 | XMS_ITS ---
Author Organization Homar Gayle III, MD Address [address] [place] [address] Care Team Providers Care Solar Technician Name Role Phone Homar Gayle Primary Care Provider REASON FOR VISIT Message Social History Sex Assigned At : Social History Observation Description Sex Assigned At Male Encounters Encounter Location Date Provider Diagnosis Homar Gayle III, MD [address] [place] [address] [place] [address] 12/05/2024 Homar Gayle Plan Of Treatment Next Appt Details Provider Name:Homar Gayle, 04/13/2025 09:30:00 AM, [address] [place] [address] [place], [address], Provider Name:Homar Gayle, 10/19/2025 10:00:00 AM, [address] [place] [address] [place], [address], Progress Notes * Ang GALVEZDOB: [birth year] (54 yo M)Acc No.[id number]:12/05/2024 Patient:?Ang GALVEZ :1970???Age:54 Y???Sex:Male Address:[address] [place] [address] * true * Date:? Generated for Printi ng/Faxing/eTransmitting on:?01/19/2025 09:17 AM EDT
--- OUTSIDE RECORDS SUMMARY | 2025-01-19 09:17 | XMS_ITS | Patient Health Record ---
Author Organization [facility] Address [address] [place] [address] Care Team Providers Care Exceptional Children Teacher Name Role Phone Irwin STANFORD, Homar Primary Care Provider Mckinley Medeiros Jr Unavailable Allergies No Known Allergies Reason For Referral No Information Medications Medication [...] FOR 30 DAYS Oral for 30 Active Immunizations Vaccine Route Administration Date Status Comme nts Influenza Unknown 08/05/2022 Administered Social History Tobacco Use: Social History Observation Description Date Details (start date - stop date) Never Smoker NA - NA Tobacco Use/Smoking Question Answer Notes Patient is a nonsmoker Alcohol Screen Question Answer Notes Did you have a drink containing alcohol in the p ast year? 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) use of non-steroidal anti-inflammato malaika (NSAID) (Z79.1) Active confirmed Plan Of Treatment Future Test Test Name Order Date COLONOSCOPY 01/06/2023 Insurance Providers Payer Name Payer Address Payer Phone Subscriber Number Group Number Insured Name Patient Relationship to Insured Coverage Start Date Coverage End Date MEDICAID OF [employer] [address] [place] [phone] [id number] ENMANUEL GALVEZ Self - patient is the insured Medical (General) History Medical History History ICD Code Prostate cancer Tendinitis/carpal tunnel syndrome Gastroesophageal reflux disease Anxiety Nephrolithiasis Neuropathy Surgical History Surgery Date(Month/Year) Prostatectomy 2020 kidney stone, lithotripsy
--- OUTSIDE RECORDS SUMMARY | 2025-01-19 09:17 | XMS_ITS | Clinical Summary ---
Author Organization [facility] Address [address] [place] [address] Care Team Providers Care Transformer Coil Winder Name Role Phone Homar Gayle Primary Care Provider [phone] Allergies Active Allergy Reactions Criticality Noted Date [...] Influenza, Injectable, Quadrivalent, Preservativ e Free 09/01/2019 Family History Relation Name Status Comments Father Mother Alive Social History Tobacco Use Types Packs/Day Years [...] Info) Description 08/22/2025 9:30 AM EST Follow-Up [facility] [address] [place] [address] Rigging Worker: Ernesto Soliman MD [address] [place] [address] Health Maintenance Due Date Last Done Comments Cologuard 1970 Colon Cancer Screening 1970 Colonoscopy 1972 FOBT / Fit Test 1972 HIV Screening 1972 Hepatitis C Screening 1972 Sigmoidoscopy 1972 Hepatitis B Vaccines (1 of 3 - 19+ 3-dose series) 01/17/1991 Pneumococcal Vaccine: 50+ Ye ars (1 of 2 - PCV) 01/17/1991 Zoster Vaccines (1 of 2) 01/17/1991 DTaP,Tdap,and Td Vaccines (1 - Tdap) 01/17/1994 COVID-19 Vaccine (5 - 2023-2 5 season) 2024 03/07/2022, 04/18/2021, 03/28/2021, Additional history exists Alcohol/Substance Use Screening 10/18/2024 Depression Screening and Follow-Up 10/18/2024 Social Drivers of Health Helen ual Screening 10/18/2024 Influenza Vaccine (Season Ended) 2025 08/05/20, 09/01/2019 RSV Vaccine (60+ years old a nd patients) (1 - 1-dose 75+ series) 01/17/2047 [place] [id number] Advance Directives Documents on File Type Date Recorded Patient Kitchen Runner Expl anation Health Care Proxy 08/18/2019 1:59 PM * Full Code (Latest Code Status on File) Date Activated Date Inactivated Comments 08/25/2019 5:36 AM 09/01/2019 9:53 PM Healthcare Agents on File Name Relationship Healthcare Agent Relationship Communication [place] Significant Other Health Care Agent Care Teams Transformer Coil Winder Relationship Specialty Start Date End Date Homar Gayle [address] [place] [address] [place] [address] PCP - General Hematology 06/14/19
--- OUTSIDE RECORDS SUMMARY | 2025-01-19 09:17 | XMS_ITS ---
Author Organization Homar Gayle III, MD Address [address] [place] [address] Care Team Providers Care Stove Polisher Name Role Phone Homar Gayle Primary Care Provider [phone] Allergies Allergen (clinical drug ingredient) Drug/Non Drug [...] Problem Status W/U Status Risk Notes Problem [id number] Ureterolithiasis (N20.1) Active confirmed He is currently [...] Date Provider Diagnosis Homar Gayle III, MD [address] [place] [address] [address], [place] [address] 12/06/2024 Homar Gayle GERD (gastroesophage al reflux [...] occasional reflux, which is well controlled with [id number]-mkdjyka medications. He will avoid eating late at [...] As Scheduled, Araceli son: OV Provider Name:Homar Gayle, 04/13/2025 09:30:00 AM, [address] [place] [address] [address], [place], [address], Provider Name:Homar Gayle, 10/19/2025 10:00:00 AM, [address] [place] [address] [address], [place], [address], Progress Notes * Ang GALVEZDOB: [birth year] (54 yo M)Acc No.[id number]:12/06/2024 Progress Notes Patient:?LEONOR Ang Provider:?Homar Gayle MD :1970???Age:54 Y???Sex:Male Alfonso e:12/06/2024 Address:[address] [place], [place] [id number] Subjective: * Chief Complaints: * ???2.5 mm kidney stone dista l right ureter December 03, 2024Ongoing renal colic * HPI: ???COVID-19 Screening:?He went to the [facility] emergency room December 03, 2024 with severe pain and was found to have a 2.5 mm right ureterkidney stone just above the bladder.? He was treated and returned home.? He comes in today in follow-up.? He continues to have the same renal colic.? I have refilled his pain medication prescription.? He was instructed on fluid consumption. Close follow-up visit was arranged.? He was instructed to retain the stone if it passes.? He was given a strainer by the emergency room.? I reviewed why this is important with him. ?Questions?Have you had any new onset fever, chills, cough, congestion, sore throat, shortness of breath, muscle aches??No * ROS:?General/Constitutional:?pain?Right back pain radiating into groin.?Chills?denies.?Fatigue?admits.?Fever?denies.?ENT:?Decreased hearing?denies.?Respiratory:?Cough?denies.?Cardiovascular:?Chest pain with exertion?denies.?Dyspnea on exertion?denies.?Shortness of breath?denies.?Gastrointestinal:?Constipation?that is moderate.?Decreased appetite?denies.?Diarrhea?denies.?Heartburn?denies.?Nausea?denies.?Rectal bleeding?denies.?Vomiting?denies.?Hematology:?bruising?denies.?petechiae?denies.?Swollen glands?none have been noted.?Genitourinary:?Frequent urination?denies.?Musculoskeletal:?Muscle aches?denies.?Painful joints?denies.?Sciatica?denies.?Weakness?denies.?Skin:?Itching?denies.?Rash?denies.?Skin lesion(s)?denies.?Neurologic:?Difficulty speaking?denies.?Dizziness?denies.?Headache?denies.?Low back pain?that is new.?Psychiatric:?Depressed mood?which is mild.? * Medical History:? * Surgical History:?lithotrips y 01/2011carpal tunnel release, right wrist 10/2014Colonoscopy with snare polyectomy 3Prostate cancer surgery - 5 years ago * Hospitalization/Major Diagno stic Procedure:?PROSTATE BIOPSY 05/2019 * Family History:?Father: dece ased 28 yrs, homicide.?Mother: alive 57 yrs.?Siblings: .?Spouse: alive 38 yrs.?6 brother(s) , 1 sister(s) . 1 son(s) , 3 daughter(s) - healthy. .? A brother in infancy. His mother lives in [place]. He is not aware of any family history of substance use disorder or addiction or mental illness. 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 He was born in [facility]. He enjoys kick boxing and art. He is not aware of any family history of mental illness or substance use disorder or addiction. There is no history of cancer in the family. * Medications:?TakingOndansetr on 4 MG Tablet Disintegrating 1 tablet on the tongue and allow to dissolve Orally Once a day , Notes to Pharmacist: Prescribed by EDoxyCODONE HCl 5 MG Tablet 1 tablet as needed Orally every 6 hrs , Notes to Pharmacist: Prescribed by Erikamsulosin HCl 0.4 MG Capsule 1 capsule Orally [...] reviewed and reconciled with the patient * Allergies:?Dexamethasone Objective: * Vitals:?Ht: 65, Wt: 185, BMI :30.78, BP: 138/80, HR: 83, Temp: 97.9, Wt-k.91. * Examination: ???General Examination: ?GENERAL APPEARANCE:?pleasant, well nourished, well developed, in no acute distress, calm and relaxed, obese, man.?HEAD:?atraumatic, normocephalic.?EYES:?eomi, perrla, anicteric, conjugate.?EARS:?normal.?NOSE:?septum intact.?ORAL CAVITY:?normal, unremarkable.?NECK/THYROID:?no jugular venous distention, no carotid bruit, thyroid normal.?LYMPH NODES:?no enlarged lymph nodes,spleen normal.?SKIN:?no suspicious lesions, anicteric.?HEART:?no clicks, gallops, murmurs, or rubs, regular rhythm, S1, S2 normal, no s3, or vascular bruits.?LUNGS:?clear to auscultation .?BREASTS:??no masses palpable bilaterally.?ABDOMEN:?bowel sounds normal, no ascites, no organomegaly, no mass, centripital obesity.?RECTAL EXAM:?not examined.?MUSCULOSKELETAL:?Discomfort to range of motion of shoulders elbows and hips.?PERIPHERAL PULSES:?normal.?NEUROLOGIC:?alert and oriented, cranial nerves 2-12 grossly intact, deep tendon reflexes 2+ symmetrical, motor strength normal upper and lower extremities, sensory exam intact.?PSYCH:?alert, oriented.? Assessment: * Assessment: 1.?Ureterolithiasis - N20.1 (Primary)???Notes :He is currently experiencing renal colic on the right.? He has an adequate supply of pain medication.? He says it is effective.? He has been advised about fluid intake and stone preservation.? He was instructed to call me at once if the stone passes.? The urology Department is aware of him from the emergency room.???2.?GERD (gastroesophageal reflux disease) - K21.9???Notes :He has occasional reflux, which is well controlled with gckx-vcr-kfqgfio medications. He will avoid eating late at night.???3.?Carpal tunnel syndrome - G56.00???Notes :He continues to have symptoms in both hands. He is scheduled for revisional surgery later in the fall.???4.?Osteoarthritis cervical spine - M47.812???Notes :He continues to have mild to moderate neck and shoulder pain.???5.?Mixed hyperlipidemia - E78.2???Notes :His total cholesterol is down to 229. It continues to improve.. He has lost 6 pounds. He continues to make efforts at lifestyle modification to reduce his???6.?Reactive depression - F32.9???Notes :His psychotherapy continues. The therapist has referred him to a prescriber.???7.?Carcinoma of prostate - C61???Notes :His PSA remains undetectable. There was no sign on examination of recurrent disease.??? Plan: * Treatment: 2.?Others? Continue Ondansetron Tablet Disintegrating, 4 MG, 1 tablet on the tongue and allow to dissolve, Orally, Once a day, Notes to Pharmacist: Prescribed by ED;?Continue oxyCODONE HCl Tablet, 5 MG, 1 tablet as needed, Orally, every 6 hrs, Notes to Pharmacist: Prescribed by ED;?Continue Tamsulosin HCl Capsule, 0.4 MG, 1 capsule, Orally, Once a day, Notes to Pharmacist: Prescribed by ED;?Continue Ibuprofen Tablet, 800 MG, 1 tablet with [...] or Other reason not done * Follow Up:?As Scheduled (Araceli son: OV) * Images: * Sign off status: Completed true * Provider:?Homar Gayle MD Date:?11/18 Generated for Mayte bustamante/Robert/eTransmitting on:?01/19/2025 09:17 AM EDT History and Physical Notes * [...]
--- OUTSIDE RECORDS SUMMARY | 2025-01-19 09:17 | XMS_ITS ---
Author Organization Homar Gayle III, MD Address [address] [address] Care Team Providers Care Registered Public Health Nurse Name Role Phone Homar Gayle Primary Care Provider [phone] REASON FOR VISIT told patient to call Social History Sex Assigned At : Social History Observation Description Sex Assigned At Male Encounters Encounter Location Date Provider Diagnosis Homar Gayle III, MD [address] [place] [address] [place] [address] 12/07/2024 Homar Gayle Plan Of Treatment Next Appt Details Provider Name:Homar Gayle, 04/13/2025 09:30:00 AM, [address] [place] [address] [place], [address], Provider Name:Homar Gayle, 10/19/2025 10:00:00 AM, [address] [place] [address] [place], [address], Progress Notes * Ang GALVEZDOB: [birth year] (54 yo M)Acc No.[id number]:12/07/2024 Patient:?Ang GALVEZ :1970???Age:54 Y???Sex:Male Address:[place] [address] * true * Date:? Generated for Printi ng/Faxing/eTransmitting on:?01/19/2025 09:17 AM EDT
== END 2025-01-19 09:50 | disposition home or self-care (01) ==
LOC: HO.HUSH 08:48
PROVIDERS: PCP Internal Medicine Medical Oncology; Visit Provider Urology
DX: N20.0 Calculus of kidney (principal)
CPT/HCPCS: 99213

== ENCOUNTER → 2025-01-19 08:47 | Outpatient (BNVA) | payer MEDICAID, SELFPAY | PROVIDERS: PCP Internal Medicine Medical Oncology; Visit Provider Urology | DX: C61 Malignant neoplasm of prostate (principal); N52.9 Male erectile dysfunction, unspecified; N20.0 Calculus of kidney | CPT/HCPCS: 99212 ==

== ENCOUNTER 2025-04-19 09:27 | Outpatient (REF) | payer MEDICAID, SELFPAY ==
--- OUTSIDE RECORDS SUMMARY | 2025-04-19 09:45 | XMS_ITS | Patient Health Record ---
Author Organization [facility] Address [address] [place] [address] Care Team Providers Care Telegraph Repeater Installer Name Role Phone Irwin STANFORD, Homar Primary Care Provider UnavailMckinley George Jr Unavailable [phone] Allergies No Known Allergies Reason For Referral [...] Problem Status W/U Status Risk Notes Problem [id number] Colon cancer screening (Z12.11) Active confirmed Problem [id number] [employer] (current) use of non-steroidal anti-inflammato malaika (NSAID) (Z79.1) Active confirmed Plan Of Treatment Future Test Test Name Order Date COLONOSCOPY 01/06/2023 Insurance Providers Payer Name Payer Address Payer Phone Subscriber Number Group Number Insured Name Patient Relationship to Insured Coverage Start Date Coverage End Date MEDICA[employer] OF [employer] [address] [place] [phone] [id number] ENMANUEL GALVEZ Self - patient is the insured Medical (General) History Medical History History ICD Code Prostate cancer Tendinitis/carpal tunnel syndrome Gastroesophageal reflux disease Anxiety Nephrolithiasis Neuropathy Surgical History Surgery Date(Month/Year) Prostatectomy 2020 kidney stone, lithotripsy
--- OUTSIDE RECORDS SUMMARY | 2025-04-19 09:45 | XMS_ITS | Patient Health Record ---
Author Organization Homar Gayle III, MD Address [address] [place] [address] Care Team Providers Care Supervisor Kosher Dietary Service Name Role Phone Homar Gayle Primary Care Provider [phone] Allergies Allergen (clinical drug ingredient) Drug/Non Drug [...] 0.2 - 1.3 BLD Negative Negative - Complete Blood Count Auto Di ff Reviewed date:06/12/2024 12:02:25 PM Interpretation: Performing Lab:[facility], [address] [place] [phone] Notes/Report: White Blood Count 6.7 4.8-10.8 X10*3/uL [...] NRBC Abs Auto 0.000 0.0-0.012 X10*3/uL Comprehensive [place]. Panel Fa st Reviewed date:06/12/2024 12:02:25 PM Interpretation: Performing Lab:[facility], [address] [place] [phone] Notes/Report: Sodium 142 135-145 mmol/L Potassium 4.2 3.3-5.1 mmol/L Chloride 108 96-108 mmol/L Carbon Dioxide 28 22-29 mmol/L Anion Gap 10 12-20 Blood Urea Nitrogen 16 9-16 mg/dL Creatinine 1.15 0.5-1.4 mg/dL Estimated Glomerular Filt Rate > 60 NOTE: For -[place] individuals, multiply the result by 1.210. Chronic [...] Panel Reviewed date:06/12/2024 12:02:25 PM Interpretation: Performing Lab:[facility], [address] [place] [phone] Notes/Report: Triglycerides 197 <150 mg/dL Desirable Triglyceride: [...] Antigen Reviewed date:06/12/2024 12:02:25 PM Interpretation: Performing Lab:[facility], [address] [place] [phone] Notes/Report: Prostate Specific Antigen < 0.10 <0.05-4.0 ng/mL PSA methodology: Reid Alinity i Chemiluminescent Microparticle Immunoassay (CMIA) Prostate Specific Antigen Reviewed date:08/13/2024 06:33:34 AM Interpretation: Performing Lab:[facility], [address] [place] [phone] Notes/Report: Prostate Specific Antigen < 0.10 <0.05-4.0 ng/mL PSA methodology: Reid Alinity i Chemiluminescent Microparticle Immunoassay (CMIA) Complete Blood Count Auto Di ff Reviewed date:10/12/2024 06:22:19 PM Interpretation: Performing Lab:[facility], [address] [place] [phone] Notes/Report: White Blood Count 6.7 4.8-10.8 X10*3/uL Red Blood Count 5.83 4.60-5.80 X10*6/uL Hemoglobin 16.5 14.0-18.0 g/dl Hematocrit 47.3 42.0-52.0 % Mean Corpuscular Volume 81.1 80.0-98.0 fL Mean Corpuscular Hemoglobin 28.3 27.0-33.0 pg Mean Corpuscular HGB Conc 34.9 31.0-36.0 g/dl Red Cell Distribution Width 12.4 11.0-16.0 % Platelet Count 244 160-400 X10*3/uL Mean Platelet Volume 10.9 9.4-12.4 fL Neutrophils Percent Auto 67.1 45-73 % Imm Gran Pct Auto 0.7 0.0-0.4 % Lymphocytes Percent Auto 19.4 20-40 % Monocytes Percent Auto 10.5 2-11 % Eosinophils Percent Auto 1.9 0-4 % Basophils Percent Auto 0.4 0-2 % NRBC Pct Auto 0.0 0.0-0.2 /100WBC Neutrophils Absolute Auto 4.5 2.0-8.3 x10*3/u L Imm Gran Abs Auto 0.05 0.00-0.03 X10*3/uL Lymphocytes Absolute Auto 1.3 1.2-4.9 X10*3/u L Monocytes Absolute Auto 0.7 0.1-1.2 X10*3/uL Eosinophils Absolute Auto 0.1 0.0-0.4 X10*3/u L Basophils Absolute Auto 0.0 0.0-0.2 X10*3/uL NRBC Abs Auto 0.000 0.0-0.012 X10*3/uL Comprehensive [place]. Panel Fa st Reviewed date:10/12/2024 06:22:19 PM Interpretation: Performing Lab:[facility], [address] [place] [phone] Notes/Report: Sodium 140 135-145 mmol/L Potassium 3.9 3.3-5.1 mmol/L Chloride 109 96-108 mmol/L Carbon Dioxide 25 22-29 mmol/L Anion Gap 10 12-20 Blood Urea Nitrogen 16 9-16 mg/dL Creatinine 0.97 0.5-1.4 mg/dL Estimated Glomerular Filt Rate > 60 Chronic Kidney Disease: Estimated GFR < 60 mL/min/1.73m2 Severe Kidney Disease: Estimated GFR < 15 mL/min/1.73m2 Glucose Fasting 96 60-99 mg/dL Calcium 9.7 8.4-10.2 mg/dL Bilirubin Total 0.6 0.0-1.0 mg/dL Aspartate Amino Transferase 24 5-37 U/L Alanine Aminotransferase 30 0-40 U/L Total Protein 7.3 6.5-8.0 g/dL Albumin Level 4.5 3.5-5.0 g/dL Alkaline Phosphatase 58 39-117 U/L Lipid Panel Reviewed date:10/12/2024 06:22:19 PM Interpretation: Performing Lab:[address] [phone] Notes/Report: Triglycerides 237 <150 mg/dL Desirable Triglyceride: less than 150 mg/dL Borderline High Triglyceride 150-199 mg/dL High Triglyceride: 200-499 mg/dL Very High Triglyceride: greater than or equal to 5OO mg/dL Cholesterol 229 <200 mg/dL Desirable Cholesterol: less than 200 mg/dL Borderline High Cholesterol: 200-239 mg/dL High Cholesterol: greater than 239 mg/dL LDL Cholesterol Calculated 134 <100 mg/dL Desirable LDL: less than 100 mg/dL Near Optimal/Above Optimal LDL: 110-129 mg/dL Borderline High LDL: 130-159 mg/dL High LDL: 160-189 mg/dL Very High LDL: greater than or equal to 190 mg/dL HDL Cholesterol 48 >40 mg/dL Desirable HDL: greater than 40 mg/dL Note: This HDL assay may give artificially low results in patients with liver disease. Prostate Specific Antigen Reviewed date:10/12/2024 06:22:19 PM Interpretation: Performing Lab:[facility], [address] [place] [phone] Notes/Report: Prostate Specific Antigen < 0.10 <0.05-4.0 ng/mL PSA methodology: Reid Alinity i Chemiluminescent Microparticle Immunoassay (CMIA) Complete Blood Count Auto Di ff Reviewed date:12/10/2024 09:08:10 AM Interpretation: Performing Lab:[address] [phone] Notes/Report: White Blood Count 9.0 4.8-10.8 X10*3/uL Red Blood Count 5.86 4.60-5.80 X10*6/uL Hemoglobin 16.6 14.0-18.0 g/dl Hematocrit 47.1 42.0-52.0 % Mean Corpuscular Volume 80.4 80.0-98.0 fL Mean Corpuscular Hemoglobin 28.3 27.0-33.0 pg Mean Corpuscular HGB Conc 35.2 31.0-36.0 g/dl Red Cell Distribution Width 12.0 11.0-16.0 % Platelet Count 265 160-400 X10*3/uL Mean Platelet Volume 10.5 9.4-12.4 fL Neutrophils Percent Auto 75.7 45-73 % Imm Gran Pct Auto 0.6 0.0-0.4 % Lymphocytes Percent Auto 14.9 20-40 % Monocytes Percent Auto 8.0 2-11 % Eosinophils Percent Auto 0.2 0-4 % Basophils Percent Auto 0.6 0-2 % NRBC Pct Auto 0.0 0.0-0.2 /100WBC Neutrophils Absolute Auto 6.8 2.0-8.3 x10*3/u L Imm Gran Abs Auto 0.05 0.00-0.03 X10*3/uL Lymphocytes Absolute Auto 1.3 1.2-4.9 X10*3/u L Monocytes Absolute Auto 0.7 0.1-1.2 X10*3/uL Eosinophils Absolute Auto 0.0 0.0-0.4 X10*3/u L Basophils Absolute Auto 0.1 0.0-0.2 X10*3/uL NRBC Abs Auto 0.000 0.0-0.012 X10*3/uL Liver Panel Reviewed date:12/10/2024 09:08:10 AM Interpretation: Performing Lab:[facility], [address] [place] [phone] Notes/Report: Bilirubin Total 0.8 0.0-1.0 mg/dL Bilirubin Direct 0.2 0.0-0.5 mg/dL Aspartate Amino Transferase 27 5-37 U/L Alanine Aminotransferase 26 0-40 U/L Total Protein 7.8 6.5-8.0 g/dL Albumin Level 4.5 3.5-5.0 g/dL Alkaline Phosphatase 67 39-117 U/L Basic Metabolic Panel Reviewed date:12/10/2024 09:08:10 AM Interpretation: Performing Lab:[address] [phone] Notes/Report: Sodium 140 135-145 mmol/L Potassium 3.9 3.3-5.1 mmol/L Chloride 107 96-108 mmol/L Carbon Dioxide 22 22-29 mmol/L Anion Gap 15 12-20 Blood Urea Nitrogen 15 9-16 mg/dL Creatinine 1.06 0.5-1.4 mg/dL Creatinine Clr Calc Pharmacy 78.0 eGFR (calculated from the MDRD study equation) and eCrCl (calculated from the Cockcroft-Gault equation) are based on different parameters and may not yield comparable results. If eCrCl result is absurd, please check patient's height/weight. Estimated Glomerular Filt Rate > 60 Chronic Kidney Disease: Estimated GFR < 60 mL/min/1.73m2 Severe Kidney Disease: Estimated GFR < 15 mL/min/1.73m2 Glucose Random 115 60-115 mg/dL Calcium 9.7 8.4-10.2 mg/dL Magnesium Reviewed date:12/10/2024 09:08:10 AM Interpretation: Performing Lab:[facility], [address] [place] [phone] Notes/Report: Magnesium 1.8 1.6-2.6 mg/dL Lipase Reviewed date:12/10/2024 09:08:10 AM Interpretation: Performing Lab:[address] [phone] Notes/Report: Lipase 20 8-78 U/L UA ClnCatch+Micro w/rflx Cul t Reviewed date:12/10/2024 09:08:10 AM Interpretation: Performing Lab:[address] [phone] Notes/Report: Urine, Clean Catch Color Urine Dark Yellow Appearance Urine Clear PH 7.5 5.0-9.0 Glucose Urine UA Negative Negative mg/dL Urine Blood Large (3+) Negative Specific [place] - Urine 1.025 1.005-1.025 Urine Protein 30 (1+) Neg-Trace mg/dL Urine Ketones 15 Negative mg/dL Nitrite Urine Negative Negative Leukocyte Esterase Urine Trace Negative RBC Urine >20 0-2 /HPF WBC Urine 0-5 0-5 /HPF Squamous Epithelial Cell Urine 0-2 0-2 /HPF Bacteria Urine None Seen None Seen Hyaline Casts Urine 0-2 0-2 /LPF CT abdomen pelvis wo con Reviewed date:12/10/2024 09:08:10 AM Interpretation: Performing Lab: Notes/Report: [address] [address] [address] Scan Report Signed Patient: Ang Mcguire MR#: [id number] 2001 : 1970 Acct:[id number] Age/Sex: 54 / M ADM Date: 12/03/24 Loc: HO.ED Attending Dr: Ordering Physician: Chayito Mckeon Date of Service: 12/03/24 Procedure(s): CT abdomen pelvis wo IV con Accession Number(s): [id number] cc: Homar Gayle MD; Chayito Mckeon Report Number: [id number]: Total DLP = 559.00 mGy-cm CLINICAL HISTORY: R flank pain rad RLQ R testicle CT abdomen and pelvis without contrast Comparison: CT/REG/IN/SR - ABD PELV W IV CON ONLY [id number] - 09/09/19 11:02 EST Findings: No consolidation or effusion. Reference coronal image 57, there is a 2.5 mm calculus within the distal right ureter. Very mild right hydronephrosis. Additional tiny calculi are present within the right kidney. No definite left-sided calculus. Small subcentimeter exophytic structure likely a cyst arising from the lower pole of the left kidney, coronal 53. The unenhanced liver, spleen, adrenal glands and pancreas are unremarkable. Gallstones fill the gallbladder. No pericholecystic fluid. No bowel obstruction or free air. No pneumatosis, free fluid or abscess. No acute osseous finding. Impression: There is a 2.5 mm calculus along the distal right ureter with very mild right hydronephrosis. Additional calculi within the right kidney noted. Cholelithiasis without evidence of cholecystitis. 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 Reference coronal im age 59, there is a 2.5 mm calculus within the distal right ureter. Very mild right hydronephrosis. Additional tiny calc ishan are present within the right kidney. No definite left-swetha ed calculus. Small subcentimeter exophytic structure likely a cyst arising from the lower pole of the le ft kidney, coronal 53. The unenhanced liver , spleen, adrenal glands and pancreas are unremarkable. Gallstones fill the gallbladder. No pericholecystic fluid. No bowel obstruction or free air. No pneumatosis, free fluid or abscess. No acute osseous finding. Impression: There is a 2.5 mm calculus along the distal right ureter with very mild right hydronephrosis. Additional calculi within the right kidney noted. Cholelithiasis witho ut evidence of cholecystitis. 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 We discussed his diet and nutrition. We reviewed his plan to lose weight. Problem 372425945 GERD (gastroesophageal reflux disease) (K21.9) Active confirmed He has occasional reflux, which is well controlled with vvel-mwi-yevnk er medications. He will avoid eating late at night. Problem 834232937 Mixed hyperlipidemia (E78.2) Active confirmed He is due for comprehensive bloood work which was ordered. This will include a fasting lipid profile. Problem 53102489 Ureterolithiasis (N20.1) Active confirmed He is currently experiencing renal colic on the right. He has an adequate supply of pain medication. He says it is effective. He has been advised about fluid intake and stone preservation. He was instructed to call me at once if the stone passes. The urology Department is aware of him from the emergency room. Problem [id number] Neuropathy (G62.9) Active confirmed He was referred to orthopedics to reevaluate the carpal tunnel situation and consider a neuropathy at the level of the elbow. Problem 96380798 Carpal tunnel syndrome (G56.00) Active confirmed He continu es to have symptoms in both hands. He is scheduled for revisional surgery later in the fall. Problem Osteoarthritis cervical spine (M47.812) Active confirmed He continues to have mild to moderate neck and shoulder pain. Problem 816146875 Carcinoma of prostate (C61) Active confirmed His PSA remains undetectable. There was no sign on examination of recurrent disease. Problem 81887556 Hearing loss, unspecified hearing loss type, unspecified laterality (H91.90) Active confirmed His hearing will be monitored. He has had no change in his hearing, which is slightly diminished. He says he does not need amplification at this time. Problem 67460830 Reactive depression (F32.9) Active confirmed His psychotherapy continues. The therapist has referred him to a prescriber. Vital Signs Heart Rate 74 /min 04/13/2025 Temperature 97.7 degrees Fahrenheit 04/13/2025 Blood pressure diastolic 81 mm Hg 04/13/2025 Height 65 in 04/13/2025 Blood pressure systolic 138 mm Hg 04/13/2025 Weight 184 lbs 04/13/2025 BMI 30.62 kg/m2 04/13/2025 Encounters Encounter Location Date Provider Diagnosis Homar Gayle III, MD [address] [place] [address] [place] [phone] 06/12/2024 Homar Gayle GERD (gastroesophage al reflux disease) K21.9 ; Carcinoma of prostate C61 ; Mixed hyperlipidemia E78.2 ; Osteoarthritis cervical spine M47.812 ; Carpal tunnel syndrome G56.00 ; Obesity (BMI 30.0-34.9) E66.9 ; Reactive depression F32.9 and Hearing loss, unspecified hearing loss type, unspecified laterality H91.90 Homar Gayle III, MD [address] [place] [address] [place] [phone] 10/13/2024 Homar Gayle GERD (gastroesophage al reflux disease) K21.9 ; Carcinoma of prostate C61 ; Mixed hyperlipidemia E78.2 ; Osteoarthritis cervical spine M47.812 ; Hearing loss, unspecified hearing loss type, unspecified laterality H91.90 and Obesity E66.9 Homar Gayle III, MD [address] [place] [address] [place] [address] 12/06/2024 Homar Gayle GERD (gastroesophage al reflux disease) K21.9 ; Ureterolithiasis N20.1 ; Carpal tunnel syndrome G56.00 ; Osteoarthritis cervical spine M47.812 ; Mixed hyperlipidemia E78.2 ; Reactive depression F32.9 and Carcinoma of prostate C61 Homar Gayle III, MD [address] [place] [address] [place] [address] 04/13/2025 Homar Gayle GERD (gastroesophage al reflux disease) K21.9 ; Carcinoma of prostate C61 ; Obesity (BMI 30.0-34.9) E66.9 ; Neuropathy G62.9 ; Carpal tunnel syndrome G56.00 ; Osteoarthritis cervical spine M47.812 and Mixed hyperlipidemia E78.2 Homar Gayle III, MD [address] [place] [address] [place] [address] 09/04/2024 Homar Gayle III, MD [address] [place] [address] [place] [address] 12/05/2024 Homar Gayle III, MD [address] [place] [address] [place] [address] 12/07/2024 Homar Gayle Assessments Encounter Date Diagnosis (ICD Code) Assessment Notes Treat ment Notes Treatment Clinical Notes 06/12/2024 GERD (gastroesophage al reflux disease) (ICD-10 - K21.9) He has occasional reflux, which is well controlled with uhor-vst-fjhyzcs medications. He will avoid eating late at night. 06/12/2024 Carcinoma of prostat e (ICD-10 - C61) His PSA remains undetectable. There was no sign on examination of recurrent disease. 10/13/2024 GERD (gastroesophage al reflux disease) (ICD-10 - K21.9) He has occasional reflux, which is well controlled with birs-kwn-rspfpjq medications. He will avoid eating late at night. 10/13/2024 Carcinoma of prostat e (ICD-10 - C61) His PSA remains undetectable. There was no sign on examination of recurrent disease. 12/06/2024 GERD (gastroesophage al reflux disease) (ICD-10 - K21.9) He has occasional reflux, which is well controlled with gatj-iwx-vgixcuk medications. He will avoid eating late at [...] aware of him from the emergency room. 04/13/2025 GERD (gastroesophage al reflux disease) (ICD-10 - K21.9) He has occasional reflux, which is well controlled with aotl-frv-lhaglud medications. He will avoid eating late at night. 04/13/2025 Carcinoma of prostat e (ICD-10 - C61) His PSA remains undetectable. There was no sign on examination of recurrent disease. 06/12/2024 Mixed hyperlipidemia (ICD-10 - E78.2) His total cholesterol is down from 255-234. He has lost 1 pound. He continues to make efforts at lifestyle modification to reduce his 10/13/2024 Mixed hyperlipidemia (ICD-10 - E78.2) His total cholesterol is down to 229. It continues to improve.. He has lost 6 pounds. He continues to make efforts at lifestyle modification to reduce his 12/06/2024 Carpal tunnel syndro me (ICD-10 - G56.00) He continues to have symptoms in both hands. He is scheduled for revisional surgery later in the fall. 04/13/2025 Obesity (BMI 30.0-34.9) (ICD-10 - E66.9) His body stable at 30. We discussed his diet and nutrition. We reviewed his plan to lose weight. 06/12/2024 Osteoarthritis cervical spine (ICD-10 - M47.812) He continues to have mild to moderate neck and shoulder pain. 10/13/2024 Osteoarthritis cervical spine (ICD-10 - M47.812) He continues to have mild to moderate neck and shoulder pain. 12/06/2024 Osteoarthritis cervical spine (ICD-10 - M47.812) He continues to have mild to moderate neck and shoulder pain. 04/13/2025 Neuropathy (ICD-10 - G62.9) He was referred to orthopedics to reevaluate the carpal tunnel situation and consider a neuropathy at the level of the elbow. 06/12/2024 Carpal tunnel syndro me (ICD-10 - G56.00) He continues to have symptoms in both hands. He is scheduled for revisional surgery later in the fall. 10/13/2024 Hearing loss, unspecified hearing loss type, unspecified laterality (ICD-10 - H91.90) His hearing will be monitored. He has had no change in his hearing, which is slightly diminished. He says he does not need amplification at this time. 12/06/2024 Mixed hyperlipidemia (ICD-10 - E78.2) His total cholesterol is down to 229. It continues to improve.. He has lost 6 pounds. He continues to make efforts at lifestyle modification to reduce his 04/13/2025 Carpal tunnel syndro me (ICD-10 - G56.00) [...] one half of a pound per week. 10/13/2024 Obesity (ICD-10 - E66.9) He has lost 6 pounds in his body mass index is 30. I have recommended weight loss through exercise and a diet restricted in fat and calories. 12/06/2024 Reactive depression (ICD-10 - F32.9) His psychotherapy continues. The therapist has referred him to a prescriber. 04/13/2025 Osteoarthritis cervical spine (ICD-10 - M47.812) He continues to have mild to moderate neck and shoulder pain. 06/12/2024 Reactive depression (ICD-10 - F32.9) His psychotherapy continues. The therapist has referred him to a prescriber. 12/06/2024 Carcinoma of prostat e (ICD-10 - C61) His PSA remains undetectable. There was no sign on examination of recurrent disease. 04/13/2025 Mixed hyperlipidemia (ICD-10 - E78.2) He is due for comprehensive AMW Foundationood work which was ordered. This will include a fasting lipid profile. 06/12/2024 Hearing loss, unspecified hearing loss type, unspecified laterality (ICD-10 - H91.90) His hearing will be monitored. He has had no change in his hearing, which is slightly diminished. He says he does not need amplification at this time. Plan Of Treatment Pending Test Test Name Order Date PROFILE, FASTING (COMPREHENSIVE METABOLI C) 08/01/2020 PROFILE, FASTING (COMPREHENSIVE METABOLI C) 12/21/2018 PROFILE, FASTING (COMPREHENSIVE METABOLI C) 04/09/2022 PROFILE, FASTING (COMPREHENSIVE METABOLI C) 10/19/2018 PROFILE, FASTING (COMPREHENSIVE METABOLI C) 12/18/2021 PROFILE, FASTING (COMPREHENSIVE METABOLI C) 10/02/2022 PROFILE, FASTING (COMPREHENSIVE METABOLI C) 01/30/2021 PROFILE, RANDOM (COMPREHENSIVE METABOLIC ) 08/10/2022 LIPID PANEL 08/01/2020 LIPID PANEL 12/21/2018 LIPID PANEL 10/19/2018 LIPID PANEL 12/18/2021 LIPID PANEL 10/02/2022 PSA, TOTAL 08/10/2022 PSA, TOTAL 04/13/2025 PSA, TOTAL 04/09/2022 PSA, TOTAL 12/21/2018 PSA, TOTAL 10/19/2018 PSA, TOTAL 12/18/2021 PSA, TOTAL 01/30/2021 PSA, TOTAL+FREE 12/21/2018 PSA, TOTAL SCREEN 10/02/2022 CBC w DIFF 08/10/2022 CBC w DIFF 08/01/2020 CBC w DIFF 04/09/2022 CBC w DIFF 12/21/2018 CBC w DIFF 10/19/2018 CBC w DIFF 12/18/2021 CBC w DIFF 01/30/2021 CBC w DIFF 10/02/2022 Lipid Panel 01/30/2021 Lipid Panel 04/13/2025 Lipid Panel 04/09/2022 Testosterone, Total 04/13/2025 Next Appt Details Provider Name:Homar Gayle, 04/24/2025 03:00:00 PM, [address] [place] [address] [address], [place], [phone], Provider Name:Homar Gayle, 10/19/2025 10:00:00 AM, [address] [place] [address] [address], [place], [address], Insurance Providers Payer Name Payer Address Payer Phone Subscriber Number Group Number Insured Name Patient Relationship to Insured Coverage Start Date Coverage End Date [place] [address] [place] [id number] Ang Mcguire Self - patient is the insured Medical (General) History Medical History History ICD Code right shoulder tendonitis carpal tunnel syndrome anxiety gerd hydronephrosis nephrolithiasis neuropathy Prostate cancer August 2019, [id number] 2.5 mm stone right ureter femora 2024 Surgical History Surgery Date(Month/Year) Prostate cancer surgery - 5 years ago Colonoscopy with snare polyectomy 023 carpal tunnel release, right wrist 5 lithotripsy 01/2011 Hospitalization History Reason Date(Month/Year) PROSTATE BIOPSY 05/2019
--- OUTSIDE RECORDS SUMMARY | 2025-04-19 09:45 | XMS_ITS | Referral Summary ---
Author Organization [facility] Address [address] [place] [address] Care Team Providers Care Powersaw Supervisor Name Role Phone Homar Gayle Primary Care Provider [phone] Allergies Active Allergy Reactions Criticality Noted Date [...] 101 09/13/2024 2:21 PM EST Temperature 36.7 C (98.1 F) 09/01/2019 3:00 PM EST Respiratory Rate 18 09/01/2019 3:00 PM EST [...] Info) Description 08/22/2025 9:30 AM EST Follow-Up [facility] [address] [place] [id number] Discharge Specialist: Ernesto Soliman MD [address] [place] [id number] [facility] Advance Directives Documents on File Type Date Recorded Patient Aerodynamic Consultant Expl anation Health Care Proxy 08/18/2019 1:59 PM * Full Code (Latest Code Status on File) Date Activated Date Inactivated Comments 08/25/2019 5:36 AM 09/01/2019 9:53 PM Healthcare Agents on File Name Relationship Healthcare Agent Relationship Communication [place] Significant Other Health Care Agent Care Teams Powersaw Supervisor Relationship Specialty Start Date End Date Homar Gayle [address] [place] [id number] PCP - General Hematology 06/14/19
[2025-04-19 10:53] LABS: Cholesterol 237 mg/dL (<200); HDL Cholesterol 67 mg/dL (>40); Triglycerides 140 mg/dL (<150)
[2025-04-19 11:16] LABS: Prostate Specific Antigen < 0.10 ng/mL (<0.05-4.0)
== END 2025-04-19 09:28 | disposition home or self-care (01) ==
LOC: HO.LAB 09:27
PROVIDERS: PCP Internal Medicine Medical Oncology; Visit Provider Internal Medicine Medical Oncology
DX: K21.9 Gastro-esophageal reflux disease without esophagitis (principal); R97.20 Elevated prostate specific antigen [PSA]; C61 Malignant neoplasm of prostate; E66.9 Obesity, unspecified
CPT/HCPCS: 36415; 80061; 84153; 84403

== ENCOUNTER 2025-07-31 08:55 | Outpatient (REF) | payer MEDICAID, SELFPAY ==
--- OUTSIDE RECORDS SUMMARY | 2024-12-05 05:12 | XMS_ITS ---
Author Organization Homar Gayle III, MD Address [address] [place] [address] Care Team Providers Care Food And Beverage Operations Manager Name Role Phone Dr. Homar Gayle III Primary Care Provider REASON FOR VISIT Message Social History Sex Assigned At : Social History Observation Description Sex Assigned At Male Encounters Encounter Location Date Provider Diagnosis Homar Gayle III, MD [address] [place] [address] [address] [facility] [place] [address] 12/05/2024 Homar Gayle Plan Of Treatment Next Appt Details Provider Name:Homar Gayle , 10/19/2025 10:00:00 AM, [address] [place] [address] [place], [address], Progress Notes * Ang GALVEZDOB: [birth year] (54 yo M)Acc No.[id number]:12/05/2024 Patient: Austen ANDERSONAng ROSS :1970 A ge:54 Y S ex:Male Address:[address] [place] [address] * true * Date: Generated for Mayte bustamante/Robert/eTransmitting on: 09:28 AM EDT
--- OUTSIDE RECORDS SUMMARY | 2024-12-06 10:30 | XMS_ITS ---
Author Organization Homar Gayle III, MD Address [address] [place] [address] Care Team Providers Care Electro Mechanical Solar Technician Name Role Phone Dr. Homar Gayle III [...] Problem Status W/U Status Risk Notes Problem [id number] Ureterolithiasis (N20.1) Active confirmed He is currently [...] Provider Diagnosis Homar Gayle III, MD [address] [place] [address] [place] [address] 12/06/2024 Homar Gayle GERD (gastroesophage al reflux [...] occasional reflux, which is well controlled with pubc-wpm-jovhyzf medications. He will avoid eating late at [...] Name:Homar Gayle , 10/19/2025 10:00:00 AM, [address] [place] [address], [address], Progress Notes * Ang GALVEZDOB: [birth year] (54 yo M)Acc No.[id number]:12/06/2024 Progress Notes Patient: Her GERARDOiberto Provider: Bucky Gayle MD :1970 A ge:54 Y S ex:Male Date:12/06/2024 Address:[address] [place] [address] KALI [id number] Subjective: * Chief Complaints: * 2 .5 mm kidney stone distal right ureter December 03, 2024Ongoing renal colic * HPI: C OVID-19 Screening: He went to the [facility] emergency room December 03, 2024 with severe [...] brother in infancy. His mother lives in [place]. 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 He enjoys kick boxing and art. [...] occasional reflux, which is well controlled with hboi-uqz-nfwtdwz medications. He will avoid eating late at [...] 0 12/06/2024 Generated for Mayte bustamante/Robert/Heatheritting on: 09:29 AM EDT History and Physical Notes * HPI (History [...]
--- OUTSIDE RECORDS SUMMARY | 2024-12-07 06:21 | XMS_ITS ---
Author Organization Homar Gayle III, MD Address [address] [address] Care Team Providers Care Back Pad Inspector Name Role Phone Dr. Homar Gayle III Primary Care Provider [phone] REASON FOR VISIT told patient to call Social History Sex Assigned At : Social History Observation Description Sex Assigned At Male Encounters Encounter Location Date Provider Diagnosis Homar Gayle III, MD [address] [place] [address] [facility] [place] [address] 12/07/2024 Homar Gayle Plan Of Treatment Next Appt Details Provider Name:Homar Gayle , 10/19/2025 10:00:00 AM, [address] [place] [address] [place], [address], Progress Notes * Ang GALVEZDOB: [birth year] (54 yo M)Acc No.[id number]:12/07/2024 Patient: Austen ANDERSONAng ROSS :1970 A ge:54 Y S ex:Male Address:[address] [place] [address] * true * Date: Generated for Printi ng/Faxing/eTransmitting on: 09:28 AM EDT
--- OUTSIDE RECORDS SUMMARY | 2025-04-13 05:30 | XMS_ITS ---
Author Organization Homar Gayle III, MD Address [address] [place] [address] Care Team Providers Care Supervisor Asbestos Textile Name Role Phone Dr. Homar Gayle III Primary Care Provider Allergies Allergen (clinical drug ingredient) Drug/Non Drug Allergy documented on EMR Reaction Allergy Type Onset Date Status dexamethasone Dexamethasone Unknown Drug Allergy Active Results Component Value Reference Range Notes Testosterone, Total (Not yet reviewed by provider) Interpretation: Performing Lab:[facility], [address] [place] [phone] Notes/Report: Testosterone, Total [phone] ng/dL For additional information, please refer to http://education.Leho.com/faq/ [email or web address] (This link is being provided for informational/ educational purposes only.) This test was developed and its analytical performance characteristics have been determined by [facility] [place], [place]. It has not been cleared or approved by the U.S. Food and Drug Administration. This assay has been validated pursuant to the CLIA regulations and is used for clinical purposes. THIS TEST WAS PERFORMED AT: [email or web address] [address] ARUNA ELI MD,PHD Lipid Panel Reviewed date:04/20/2025 07:00:24 PM Interpretation: Performing Lab:[facility], [address] [place] [phone] Notes/Report: Triglycerides 140 <150 mg/dL Desirable Triglyceride: [...] low results in patients with liver disease. REASON FOR VISIT Arthritis, GERD, Hyperlipidemia, Prostate [...] Date Provider Diagnosis Homar Gayle III, MD [address] [place] [address] [address] [place], [place] [phone] 04/13/2025 Homar Gayle GERD (gastroesophage al reflux [...] occasional reflux, which is well controlled with pgpv-ubi-piryxob medications. He will avoid eating late at [...] Test Name Order Date PSA, TOTAL 04/13/2025 Testosterone, Total 04/13/2025 Next Appt Details Follow Up: 2 Weeks, Reason: Telehealth Provider Name:Homar Gayle , 10/19/2025 10:00:00 AM, [address] [place] [address] [address], [place], [phone], Progress Notes * Ang GALVEZDOB: [birth year] (55 yo M)Acc No.[id number]:04/13/2025 Progress Notes Patient: Ang CARRILLO Provider: Bucky Gayle MD :1970 A ge:55 Y S ex:Male Date:04/13/2025 Address:[address] [place], [place] [id number] Subjective: * Chief Complaints: * A rthritisGERDHyperlipidemiaProstate [...] medication. His 46-year-old cousin who lives in [facility] recently had a myocardial infarction. He is [...] brother in infancy. His mother lives in [place]. He is not aware of any family history of substance use disorder or addiction or mental illness. 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 He was born in [facility]. He enjoys kick boxing and art. He [...] occasional reflux, which is well controlled with hyod-efv-rgfhtyy medications. He will avoid eating late at [...] 0 04/13/2025 Generated for Mayte bustamante/Robert/Deshaun on: 1 09:28 AM EDT History and Physical Notes * [...]
--- OUTSIDE RECORDS SUMMARY | 2025-04-24 11:00 | XMS_ITS ---
Author Organization Homar Gayle III, MD Address [address] [place] [address] Care Team Providers Care Infection Control Coordinator Name Role Phone Dr. Homar Gayle III [...] Provider Diagnosis Homar Gayle III, MD [address] [place] [address] [place] [address] 04/24/2025 Homar Gayle GERD (gastroesophage al reflux [...] occasional reflux, which is well controlled with eklg-imt-sjgebtg medications. He will avoid eating late at [...] Name:Homar Gayle , 10/19/2025 10:00:00 AM, [address] [place] [address] [address], [address], [place], [address], Progress Notes * Her LEONORnaveenDOB: [birth year] (55 yo M)Acc No.[id number]:04/24/2025 Patient: Amarilys CARRILLOto Provider: Bucky Gayle MD :1970 A ge:55 Y S ex:Male Date:04/24/2025 Address:[address] [place], [place] [id number] Subjective: * Chief Complaints: * U reterolithiasisHistory [...] ocation of provider rendering services: { ...} [address] [place] [address] Drive [address] [facility] [address] L ocation of patient: kassandra ddress listed [...] 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 He enjoys kick boxing and [...] occasional reflux, which is well controlled with qjbm-uge-xgyylis medications. He will avoid eating late at [...] 04/24/2025 Generated for Mayte bustamante/Robert/Deshaun on: 1 09:28 AM EDT History and Physical Notes * HPI (History of Present Illness) Category Sub-Category Detail Notes Telehealth Location of [facility] rendering services:: {...} [address] [facility] [address] [place], [place] [phone] Location of patient:: address listed in demographics [...]
--- NOTE | ~2025-07-31 | US_ITS ---
EXAMINATION: US KIDNEY BILATERAL HISTORY: N20.0 - Calculus of kidney TECHNIQUE: Real-time grayscale ultrasound imaging of the kidneys was performed and images were reviewed. COMPARISON: Comparison is made with the prior examination dated 07/12/2018. Correlation is also made with an unenhanced CT of the abdomen dated 12/03/2024. FINDINGS: Right kidney: The right kidney measures 10.6 x 3.9 x 4.9 cm. Renal parenchymal echotexture and thickness are normal. There are no masses. There is no hydronephrosis or renal calculi. Left Kidney: The left kidney measures 10.4 x 4.4 x 4.7 cm. Renal parenchymal echotexture and thickness are normal. There is a 7 x 5 x 7 mm cyst at the lower pole. There is no hydronephrosis or renal calculi. US/US renal BI IMPRESSION: 7 x 5 x 7 mm left renal cyst. Otherwise unremarkable renal ultrasound. Electronically signed by: Homar Ku MD 08/01/2025 06:58 AM EDT
--- OUTSIDE RECORDS SUMMARY | 2025-07-31 09:28 | XMS_ITS | Patient Health Record ---
Author Organization Homar Gayle III, MD Address [address] [place] [address] Care Team Providers Care Private Banker Name Role Phone Dr. Homar Gayle III Primary Care Provider [phone] Allergies Allergen (clinical drug ingredient) Drug/Non Drug [...] 0.2 - 1.3 BLD Negative Negative - Testosterone, Total (Not yet reviewed by provider) Interpretation: Performing Lab:[facility], [address] [place] [phone] Notes/Report: Testosterone, Total 586 498-8140 ng/dL For additional information, please refer to [email or web address] [email or web address]/fa q/ TotalTestosteroneLCM [email or web address] (This link is being provided for informational/ educational purposes only.) This test was developed and its analytical performance characteristics have been determined by [employer] [place], [place]. It has not been cleared or approved by the U.S. Food and Drug Administration. This assay has been validated pursuant to the CLIA regulations and is used for clinical purposes. THIS TEST WAS PERFORMED AT: [facility]/[address] [place] [address] ARUNA ELI MD,PHD Lipid Panel Reviewed date:04/20/2025 07:00:24 PM Interpretation: Performing Lab:[facility], [address] [place] [phone] Notes/Report: Triglycerides 140 <150 mg/dL Desirable Triglyceride: [...] with liver disease. Prostate Specific Antigen Reviewed date:08/13/2024 06:33:34 AM Interpretation: Performing Lab:[facility], [address] [place] [phone] Notes/Report: Prostate Specific Antigen < 0.10 <0.05-4.0 ng/mL PSA methodology: Reid Alinity i Chemiluminescent Microparticle Immunoassay (CMIA) Complete Blood Count Auto Di ff Reviewed date:10/12/2024 06:22:19 PM Interpretation: Performing Lab:[facility], [address] [place] [phone] Notes/Report: White Blood Count 6.7 4.8-10.8 X10*3/uL [...] NRBC Abs Auto 0.000 0.0-0.012 X10*3/uL Comprehensive [place]. Panel Fa st Reviewed date:10/12/2024 06:22:19 PM Interpretation: Performing Lab:[facility], [address] [place] [phone] Notes/Report: Sodium 140 135-145 mmol/L Potassium 3.9 [...] Panel Reviewed date:10/12/2024 06:22:19 PM Interpretation: Performing Lab:[address] [address] Notes/Report: Triglycerides 237 <150 mg/dL Desirable Triglyceride: [...] Antigen Reviewed date:10/12/2024 06:22:19 PM Interpretation: Performing Lab:[address] [address] Notes/Report: Prostate Specific Antigen < 0.10 <0.05-4.0 ng/mL PSA methodology: Reid Alinity i Chemiluminescent Microparticle Immunoassay (CMIA) Complete Blood Count Auto Di ff Reviewed date:12/10/2024 09:08:10 AM Interpretation: Performing Lab:[address] [address] Notes/Report: White Blood Count 9.0 4.8-10.8 X10*3/uL [...] Panel Reviewed date:12/10/2024 09:08:10 AM Interpretation: Performing Lab:[facility], [address] [place] [phone] Notes/Report: Bilirubin Total 0.8 0.0-1.0 mg/dL Bilirubin Direct 0.2 0.0-0.5 mg/dL Aspartate Amino Transferase 27 5-37 U/L Alanine Aminotransferase 26 0-40 U/L Total Protein 7.8 6.5-8.0 g/dL Albumin Level 4.5 3.5-5.0 g/dL Alkaline Phosphatase 67 39-117 U/L Basic Metabolic Panel Reviewed date:12/10/2024 09:08:10 AM Interpretation: Performing Lab:[facility], [address] [place] [phone] Notes/Report: Sodium 140 135-145 mmol/L Potassium 3.9 [...] Magnesium Reviewed date:12/10/2024 09:08:10 AM Interpretation: Performing Lab:[address] [address] Notes/Report: Magnesium 1.8 1.6-2.6 mg/dL Lipase Reviewed date:12/10/2024 09:08:10 AM Interpretation: Performing Lab:[address] [address] Notes/Report: Lipase 20 8-78 U/L UA ClnCatch+Micro w/rflx Cul t Reviewed date:12/10/2024 09:08:10 AM Interpretation: Performing Lab:[address] [address] Notes/Report: Urine, Clean Catch Color Urine Dark Yellow Appearance Urine Clear PH 7.5 5.0-9.0 Glucose Urine UA Negative Negative mg/dL Urine Blood Large (3+) Negative Specific [place] - Urine 1.025 1.005-1.025 Urine Protein 30 [...] date:12/10/2024 09:08:10 AM Interpretation: Performing Lab: Notes/Report: [address] [address] [address] Scan Report Signed Patient: Ang Mcguire MR#: [id number] 2001 : 1970 Acct:[id number] Age/Sex: 54 / M ADM Date: 12/03/24 Loc: HO.ED Attending Dr: Ordering Physician: Chayito Mckeon Date of Service: 12/03/24 Procedure(s): CT abdomen pelvis wo IV con Accession Number(s): [id number] cc: Homar Gayle MD; Chayito Mckeon Report Number: [id number]: Total DLP = 559.00 mGy-cm CLINICAL HISTORY: R flank pain rad RLQ R testicle CT abdomen and pelvis without contrast Comparison: CT/REG/OR/SR - ABD PELV W IV CON ONLY [id number] - 09/09/19 11:02 EST Findings: No consolidation [...] 12/03/24 1343 DD/ 1342 TD/TT: 12/03/24 1342 Crossband Layer: [address] [address] [address] Scan Report Signed Patient: Ang Mcguire MR#: [id number] 2001 : 1970 Acct:[id number] Age/Sex: 54 / M ADM Date: 12/03/24 Loc: HO.ED Attending Dr: Ordering Physician: Chayito Mckeon Date of Service: 12/03/24 Procedure(s): CT abdomen pelvis wo IV con Accession Number(s): [id number] cc: Homar Gayle MD; Chayito Mckeon Report Number: [id number]: Total DLP = 559.00 mGy-cm CLINICAL HISTORY: R flank pain rad RLQ R testicle CT abdomen and pelvi s without contrast Comparison: CT/REG/OR/SR - ABD PELV W IV CON ONLY [id number] - 09/09/19 11:02 EST Findings: No consolidation [...] 12/03/24 1343 DD/ 1342 TD/TT: 12/03/24 1342 Crossband Layer: Prostate Specific Antigen Reviewed date:04/20/2025 07:00:24 PM Interpretation: Performing Lab:[facility], [address] [place] [phone] Notes/Report: Prostate Specific Antigen < 0.10 <0.05-4.0 ng/mL PSA methodology: [place] i Chemiluminescent Microparticle Immunoassay (CMIA) Reason For [...] needed Orally every 8 hrs 08/23/2023 Active Immunizations Vaccine Route Administration Date Status [...] Problem Status W/U Status Risk Notes Problem [id number] Obesity (BMI 30.0-34.9) (E66.9) Active confirmed His body stable at 30. We discussed his diet and nutrition. We reviewed his plan to lose weight. Problem 891031194 GERD (gastroesophageal reflux disease) (K21.9) Active confirmed He has occasional reflux, which is well controlled with mjgv-jqh-agfuy er medications. He will avoid eating late at night. Problem 407822030 Mixed hyperlipidemia (E78.2) Active confirmed He is due for comprehensive bloood work which was ordered. This will include a fasting lipid profile. Problem 31435816 Ureterolithiasis (N20.1) Active confirmed He is currently experiencing renal colic on the right. He has an adequate supply of pain medication. He says it is effective. He has been advised about fluid intake and stone preservation. He was instructed to call me at once if the stone passes. The urology Department is aware of him from the emergency room. Problem 686826169 Neuropathy (G62.9) Active confirmed He was referred to orthopedics to reevaluate the carpal tunnel situation and consider a neuropathy at the level of the elbow. Problem 36688612 Carpal tunnel syndrome (G56.00) Active confirmed He continu es to have symptoms in both hands. He is scheduled for revisional surgery later in the fall. Problem Cervical spondylosis without myelopathy (627652293) Osteoarthritis cervical spine (M47.812) Active confirmed He continues to have mild to moderate neck and shoulder pain. Problem 475670172 Carcinoma of prostate (C61) Active confirmed His PSA remains undetectable. There was no sign on examination of recurrent disease. Problem 12827588 Hearing loss, unspecified hearing loss type, unspecified laterality (H91.90) Active confirmed His hearing will be monitored. He has had no change in his hearing, which is slightly diminished. He says he does not need amplification at this time. Problem 93159335 Reactive depression (F32.9) Active confirmed His psychotherapy continues. The therapist has referred him to a prescriber. Vital Signs Heart Rate 74 /min 04/13/2025 Temperature 97.7 degrees Fahrenheit 04/13/2025 Blood pressure diastolic 81 mm Hg 04/13/2025 Height 65 in 04/24/2025 Blood pressure systolic 138 mm Hg 04/13/2025 Weight 184 lbs 04/24/2025 BMI 30.62 kg/m2 04/24/2025 Encounters Encounter Location Date Provider Diagnosis Homar Gayle III, MD [address] [place] [address] [place] [address] 10/13/2024 Homar Gayle GERD (gastroesophage al reflux disease) K21.9 ; Carcinoma of prostate C61 ; Mixed hyperlipidemia E78.2 ; Osteoarthritis cervical spine M47.812 ; Hearing loss, unspecified hearing loss type, unspecified laterality H91.90 and Obesity E66.9 Homar Gayle III, MD [address] [place] [address] [place] [address] 12/06/2024 Homar Gayle GERD (gastroesophage al reflux disease) K21.9 ; Ureterolithiasis N20.1 ; Carpal tunnel syndrome G56.00 ; Osteoarthritis cervical spine M47.812 ; Mixed hyperlipidemia E78.2 ; Reactive depression F32.9 and Carcinoma of prostate C61 Homar Gayle III, MD [address] [place] [address] [place] [address] 04/13/2025 Homar Gayle GERD (gastroesophage al reflux disease) K21.9 ; Carcinoma of prostate C61 ; Obesity (BMI 30.0-34.9) E66.9 ; Neuropathy G62.9 ; Carpal tunnel syndrome G56.00 ; Osteoarthritis cervical spine M47.812 and Mixed hyperlipidemia E78.2 Homar Gayle III, MD [address] [place] [address] [place] [address] 04/24/2025 Homar Gayle GERD (gastroesophage al reflux disease) K21.9 ; Carcinoma of prostate C61 ; Osteoarthritis cervical spine M47.812 ; Mixed hyperlipidemia E78.2 ; Hearing loss, unspecified hearing loss type, unspecified laterality H91.90 ; Reactive depression F32.9 and Ureterolithiasis N20.1 Homra Gayle III, MD [address] [place] [address] [place] [address] 09/04/2024 Homar Gayle III, MD [address] [place] [address] [place] [address] 12/05/2024 Homar Gayle III, MD [address] [place] [address] [place] [phone] 12/07/2024 Homar Gayle Assessments Encounter Date Diagnosis (ICD Code) Assessment Notes Treat ment Notes Treatment Clinical Notes 10/13/2024 GERD (gastroesophage al reflux disease) (ICD-10 - K21.9) He has occasional reflux, which is well controlled with vglz-rnw-bobjfoa medications. He will avoid eating late at night. 10/13/2024 Carcinoma of prostat e (ICD-10 - C61) His PSA remains undetectable. There was no sign on examination of recurrent disease. 12/06/2024 GERD (gastroesophage al reflux disease) (ICD-10 - K21.9) He has occasional reflux, which is well controlled with faqw-bac-qjrbyeu medications. He will avoid eating late at [...] occasional reflux, which is well controlled with uypw-pak-hsgktkl medications. He will avoid eating late at night. 04/13/2025 Carcinoma of prostat e (ICD-10 - C61) His PSA remains undetectable. There was no sign on examination of recurrent disease. 04/24/2025 GERD (gastroesophage al reflux disease) (ICD-10 - K21.9) He has occasional reflux, which is well controlled with qgkt-pqw-ghkmobc medications. He will avoid eating late at [...] We reviewed his plan to lose weight. 04/24/2025 Osteoarthritis cervical spine (ICD-10 - M47.812) [...] neuropathy at the level of the elbow. 04/24/2025 Mixed hyperlipidemia (ICD-10 - E78.2) He is due for comprehensive bloood work which was ordered. This will include a fasting lipid profile. 10/13/2024 Hearing loss, unspecified hearing loss type, [...] for revisional surgery later in the fall. 04/24/2025 Hearing loss, unspecified hearing loss type, [...] to moderate neck and shoulder pain. 04/24/2025 Reactive depression (ICD-10 - F32.9) His psychotherapy continues. The therapist has referred him to a prescriber. 12/06/2024 Carcinoma of prostat e (ICD-10 - C61) His PSA remains undetectable. There was no sign on examination of recurrent disease. 04/13/2025 Mixed hyperlipidemia (ICD-10 - E78.2) He is due for comprehensive bloood work which was ordered. This will include a fasting lipid profile. 04/24/2025 Ureterolithiasis (ICD-10 - N20.1) He is currently experiencing renal colic on the right. He has an adequate supply of pain medication. He says it is effective. He has been advised about fluid intake and stone preservation. He was instructed to call me at once if the stone passes. The urology Department is aware of him from the emergency room. Plan Of Treatment Pending Test Test Name Order Date PROFILE, FASTING (COMPREHENSIVE METABOLI C) 10/19/2018 PROFILE, FASTING (COMPREHENSIVE METABOLI C) 12/18/2021 PROFILE, FASTING (COMPREHENSIVE METABOLI C) 10/02/2022 PROFILE, FASTING (COMPREHENSIVE METABOLI C) 01/30/2021 PROFILE, FASTING (COMPREHENSIVE METABOLI C) 08/01/2020 PROFILE, FASTING (COMPREHENSIVE METABOLI C) 12/21/2018 PROFILE, FASTING (COMPREHENSIVE METABOLI C) 04/09/2022 PROFILE, RANDOM (COMPREHENSIVE METABOLIC ) 08/10/2022 LIPID PANEL 08/01/2020 LIPID PANEL 12/21/2018 LIPID PANEL 10/19/2018 LIPID PANEL 12/18/2021 LIPID PANEL 10/02/2022 PSA, TOTAL 04/13/2025 PSA, TOTAL 04/09/2022 PSA, TOTAL 12/21/2018 PSA, TOTAL 10/19/2018 PSA, TOTAL 12/18/2021 PSA, TOTAL 01/30/2021 PSA, TOTAL 08/10/2022 PSA, TOTAL+FREE 12/21/2018 PSA, TOTAL SCREEN 10/02/2022 CBC w DIFF 08/10/2022 CBC w DIFF 08/01/2020 CBC w DIFF 04/09/2022 CBC w DIFF 12/21/2018 CBC w DIFF 10/19/2018 CBC w DIFF 12/18/2021 CBC w DIFF 01/30/2021 CBC w DIFF 10/02/2022 Lipid Panel 01/30/2021 Lipid Panel 04/09/2022 Testosterone, Total 04/13/2025 Next Appt Details Provider Name:Homar Alston Irwin , 10/19/2025 10:00:00 AM, [address] [place] [address] BARTOLO RICHARDSON, [place], [address], Insurance Providers Payer Name Payer Address Payer Phone Subscriber Number Group Number Insured Name Patient Relationship to Insured Coverage Start Date Coverage End Date [place] [address] [place] [id number] Mcguire Ang Self - patient is the insured Medical [...]
--- OUTSIDE RECORDS SUMMARY | 2025-07-31 09:28 | XMS_ITS | Patient Health Record ---
Author Organization [facility] Address [address] [place] [address] Care Team Providers Care Loss Prevention Research Engineer Name Role Phone Homar Gayle MD Primary Care Provider Mckinley Medeiros Jr Unavailable [phone] Allergies No Known Allergies Reason For Referral No Information Medications Medication SIG (Take, Route, Frequency, Duration) Notes Start Date End Date Status Meloxicam 15 MG TAKE 1 TABLET BY NIC TH EVERY DAY Oral; Duration: 30 Active Ibuprofen 800 MG 1 tablet with food o r milk as needed Orally every 8 hrs 01/06/2023 Active MiraLax (colon prep) 17 GM/SCOOP mixed with Gatorade or Crystal Light Orally begin at 5:00 p.m. 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 non-steroidal anti-inflammat ory drug ([id number] 03) vermin exterminator (current) use of non-steroidal anti-inflammat ories (NSAID) (Z79.1) Active confirmed Plan Of Treatment Future Test Test Name Order Date COLONOSCOPY 01/06/2023 Insurance Providers Payer Name Payer Address Payer Phone Subscriber Number Group Number Insured Name Patient Relationship to Insured Coverage Start Date Coverage End Date [facility] [address] [place] [id number] ENMANUEL GALVEZ Self - patient is the insured Medical (General) History Medical History History ICD Code Prostate cancer Tendinitis/carpal tunnel syndrome Gastroesophageal reflux disease Anxiety Nephrolithiasis Neuropathy Surgical History Surgery Date(Month/Year) Prostatectomy 2019 kidney stone, lithotripsy
--- OUTSIDE RECORDS SUMMARY | 2025-07-31 09:28 | XMS_ITS | Clinical Summary ---
Author Organization [facility] Address [address] [place] [address] Care Team Providers Care Spa Supervisor Name Role Phone Homar Gayle Primary Care Provider [phone] Allergies Active Allergy Reactions Criticality Noted Date [...] Info) Description 08/22/2025 9:30 AM EST Follow-Up [facility] [address] [place] [address] Brick Extruder Operator: Ernesto Soliman MD [address] [place] [address] Health Maintenance Due Date Last Done Comments [...] DTaP,Tdap,and Td Vaccines (1 - Tdap) 01/17/1994 Alcohol/Substance Use Screening 10/18/2024 Depression Screening and Follow-Up 10/18/2024 Social Drivers of Health Helen ual Screening 10/18/2024 COVID-19 Vaccine (5 - 2024-2 6 season) 2025 03/07/2022, 04/18/2021, 03/28/2021, Additional history exists Influenza Vaccine (#1) 2025 08/05/2022, 2018 RSV Vaccine (60+ years old a nd patients) (1 - 1-dose 75+ series) 01/17/2047 [facility] Directives Documents on File Type Date Recorded Patient Insurance Claims Clerk Expl anation Health Care Proxy 08/18/2019 1:59 PM * Full Code (Latest Code Status on File) Date Activated Date Inactivated Comments 08/25/2019 5:36 AM 09/01/2019 9:53 PM Healthcare Agents on File Name Relationship Healthcare Agent Relationship Communication [place] Significant Other Health Care Agent Care Teams Spa Supervisor Relationship Specialty Start Date End Date Homar Gayle [address] [place] [id number] PCP - General Hematology 06/14/19
[2025-07-31 11:02] LABS: Prostate Specific Antigen < 0.10 ng/mL (<0.05-4.0)
== END 2025-07-31 08:56 | disposition home or self-care (01) ==
LOC: HO.US 08:55
PROVIDERS: PCP Internal Medicine Medical Oncology; Visit Provider Urology
DX: C61 Malignant neoplasm of prostate (principal); N20.0 Calculus of kidney
CPT/HCPCS: 36415; 76775; 84153

== ENCOUNTER → 2025-07-31 15:01 | Outpatient (BNV) | payer MEDICAID, SELFPAY | PROVIDERS: PCP Internal Medicine Medical Oncology; Visit Provider Radiology Diagnostic Radiology | DX: N28.1 Cyst of kidney, acquired (principal) | CPT/HCPCS: 76775 ==

== ENCOUNTER 2025-08-24 10:21 | Outpatient (AMB) | payer MEDICAID, SELFPAY ==
--- OUTSIDE RECORDS SUMMARY | 2024-06-12 05:45 | XMS_ITS ---
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 Homar Gayle III Primary Care Provider Allergies Allergen (clinical drug ingredient) Drug/Non Drug Allergy documented on EMR Reaction Allergy Type Onset Date Status dexamethasone Dexamethasone Unknown Drug Allergy Active REASON FOR VISIT Inflammatory arthritis, GERD, Hyperlipidemia, Prostate cancer, Depression Medications Medication SIG (Take, Route, Frequency, Duration) Notes Start Date End Date Status Ibuprofen 800 MG 1 tablet with food o r milk as needed Orally every 8 hrs 08/23/2023 Active Electrodes 2 x2 /Reusable - as directed apply to skin use with Tens machine 10/23/2020 Active Social History Tobacco Use: Social History Observation Description Date Details (start date - stop date) Never Smoker NA - NA Sex Assigned At : Social History Observation Description Sex Assigned At Male Tobacco Use/Smoking Question Answer Notes Patient is a nonsmoker Additional Findings: Tobacco Non-User Aggressive non-smoker Vital Signs Temperature 98.4 degrees Fahrenheit 06/12/20 24 Blood pressure systolic 136 mm Hg 06/12/20 24 Blood pressure diastolic 85 mm Hg 024 Heart Rate 67 /min 06/12/2024 Height 65 in 06/12/2024 Weight 188 lbs 06/12/2024 BMI 31.28 kg/m2 06/12/2024 Encounters Encounter Location Date Provider Diagnosis Homar Gayle III, MD [address] [place] [address] [place] [address] 06/12/2024 Homar Gayle GERD (gastroesophage al reflux disease) K21.9 ; Carcinoma of prostate C61 ; Mixed hyperlipidemia E78.2 ; Osteoarthritis cervical spine M47.812 ; Carpal tunnel syndrome G56.00 ; Obesity (BMI 30.0-34.9) E66.9 ; Reactive depression F32.9 and Hearing loss, unspecified hearing loss type, unspecified laterality H91.90 Assessments Encounter Date Diagnosis (ICD Code) Assessment Notes Treat ment Notes Treatment Clinical Notes 06/12/2024 GERD (gastroesophageal reflux disease) (ICD-10 - K21.9) He has occasional reflux, which is well controlled with tdci-wot-shcgrdf medications. He will avoid eating late at night. 06/12/2024 Carcinoma of prostat e (ICD-10 - C61) His PSA remains undetectable. There was no sign on examination of recurrent disease. 06/12/2024 Mixed hyperlipidemia (ICD-10 - E78.2) His total cholesterol is down from 255-234. He has lost 1 pound. He continues to make efforts at lifestyle modification to reduce his 06/12/2024 Osteoarthritis cervical spine (ICD-10 - M47.812) He continues to have mild to moderate neck and shoulder pain. 06/12/2024 Carpal tunnel syndrome (ICD-10 - G56.00) He continues to have symptoms in both hands. He is scheduled for revisional surgery later in the fall. 06/12/2024 Obesity (BMI 30.0-34.9) (ICD-10 - E66.9) His body mass index is 31. He weighs 188 pounds. He remains obese. We have discussed his diet and nutrition. We made a plan to lose weight at a rate of one half of a pound per week. 06/12/2024 Reactive depression (ICD-10 - F32.9) His psychotherapy continues. The therapist has referred him to a prescriber. 06/12/2024 Hearing loss, unspecified hearing loss type, unspecified laterality (ICD-10 - H91.90) His hearing will be monitored. He has had no change in his hearing, which is slightly diminished. He says he does not need amplification at this time. Plan Of Treatment Medication Medication Name Sig Start Date Stop Date Notes Ibuprofen 800 MG 1 tablet with food o r milk as needed Orally every 8 hrs 08/23/2023 Electrodes 2 x2 /Reusable - as directed apply to skin use with Tens machine 10/23/2020 Next Appt Details Follow Up: as scheduled, Araceli son: OV Provider Name:Homar Gayle , 10/19/2025 10:00:00 AM, [address] [place] [address] [address], [place], [address], Progress Notes * Ang GALVEZDOB: [birth year] (54 yo M)Acc No.[id number]:06/12/2024 Progress Notes Patient: Ang Cedeno Provider: Bucky Gayle MD :1970 A ge:54 Y S ex:Male Date:06/12/2024 Address:[address] [place], [place] [id number] Subjective: * Chief Complaints: * I nflammatory arthritisGERDHyperlipidemiaProstate cancerDepression * HPI: C OVID-19 Screening: He returns for medical management. The arthritic pain in his hands has flared and he has an appointment next week with rheumatology. We have discussed his options for treatment. His hearing loss is unchanged. His PSA is not detectable. Esophageal reflux symptoms are controlled. He continues to try to lose weight. He says his depression is very minor at this time. Questions H ave you experienced fever, chills, cough, sore throat, shortness of breath, difficulty breathing, muscle aches, loss of taste or smell? N o H ave you been exposed to the virus within the last 10 days? N o H ave you travelled internationally in the last 10 days? N o H ave you been exposed to COVID-19 in the past? Y es * ROS: G eneral/Constitutional: pain P ain from arthritis in fingers hands wrists and neck.?Chills d enies. F atigue a dmits. F ever d enies. E NT: Decreased hearing i n both ears. R espiratory: Cough d enies. C ardiovascular: Chest pain with exertion d enies. D yspnea on exertion?denies. S hortness of breath d enies. G astrointestinal: Constipation o ccasional. D ecreased appetite d enies. D iarrhea d enies. H eartburn c ontrolled with medications. N ausea d enies. R ectal bleeding d enies. V omiting d enies. H ematology: bruising d enies. p etechiae d enies. S wollen glands n one have been noted. G enitourinary: Frequent urination o nce a night. M usculoskeletal: Muscle aches d enies. P ainful joints handsHis wrists fingers and neck. S ciatica d enies. W eakness d enies. S kin: Itching d enies. R patricio d enies. S kin lesion(s)?denies. N eurologic: Difficulty speaking d enies. D izziness d enies.?Headache d enies. L ow back pain d enies. P sychiatric: Depressed mood w hich is mild. * Medical History: * Surgical History: l ithotripsy 01/2011carpal tunnel release, right wrist 10/2014 * Hospitalization/Major Diagno stic Procedure: P ROSTATE BIOPSY 05/2019 * Family History: F ather: 28 yrs, homicide. M other: alive 57 yrs, well. S pouse: alive 38 yrs. 6 brother(s) , 1 sister(s) . 1 son(s) , 3 daughter(s) - healthy. . A brother in infancy. His mother lives in [place]. He is not aware of any family history of substance use disorder or addiction or mental illness. 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 He was born in [facility]. He enjoys kick boxing and art. He is not aware of any family history of mental illness or substance use disorder or addiction. There is no history of cancer in the family. * Medications: T akingIbuprofen 800 MG Tablet 1 tablet with food or milk as needed Orally every 8 hrsElectrodes 2 x2 /Reusable - Miscellaneous as directed apply to skin use with Tens machineMedication List reviewed and reconciled with the patientTaking Ibuprofen 800 MG Tablet 1 tablet with food or milk as needed Orally every 8 hrsTaking Electrodes 2 x2 /Reusable - Miscellaneous as directed apply to skin use with Tens machineMedication List reviewed and reconciled with the patient * Allergies: D examethasoneno[Allergies Verified] Objective: * Vitals: H t: 65, Wt: 188, BMI:31.28, BP: 136/85, HR: 67, Temp: 98.4, Wt-k.28. * P ast Orders: Lab:Prostate Specific Antige n * Order Date 06/12/2024 02/08/2024 08/07/2023 Prostate Specific Antigen < 0.10 (Ref Range: <0.05-4.0 ng/mL) < 0.10 (Ref Range: <0.05-4.0 ng/mL) < 0.10 (Ref Range: <0.05-4.0 ng/mL) * Lab:Lipid Panel * Order Date 06/12/2024 02/08/2024 07/19/2023 Triglycerides 197 H (Ref Range: <150 mg/dL) 256 H (Ref Range: <150 mg/dL) 190 H (Ref Range: <150 mg/dL) Cholesterol 234 H (Ref Range: <200 mg/dL) 255 H (Ref Range: <200 mg/dL) 242 H (Ref Range: <200 mg/dL) LDL Cholesterol Calculated 142 H (Ref Range: <100 mg/dL) 155 H (Ref Range: <100 mg/dL) 156 H (Ref Range: <100 mg/dL) HDL Cholesterol 53 (Ref Range: >40 mg/dL) 49 (Ref Range: >40 mg/dL) 48 (Ref Range: >40 mg/dL) * Lab:Comprehensive Kimberly. Pane l Fast * Order Date 06/12/2024 02/08/2024 07/19/2023 Sodium 142 (Ref Range: 135-145 mmol/L) 143 (Ref Range: 135-145 mmol/L) 142 (Ref Range: 135-145 mmol/L) Bilirubin Total 0.7 (Ref Range: 0.0-1.0 mg/dL) 0.8 (Ref Range: 0.0-1.0 mg/dL) 1.0 (Ref Range: 0.0-1.0 mg/dL) Aspartate Amino Transferase 19 (Ref Range: 5-37 U/L) 23 (Ref Range: 5-37 U/L) 22 (Ref Range: 5-37 U/L) Alanine Aminotransferase 22 (Ref Range: 0-40 U/L) 35 (Ref Range: 0-40 U/L) 23 (Ref Range: 0-40 U/L) Total Protein 7.2 (Ref Range: 6.5-8.0 g/dL) 7.8 (Ref Range: 6.5-8.0 g/dL) 7.2 (Ref Range: 6.5-8.0 g/dL) Albumin Level 4.4 (Ref Range: 3.5-5.0 g/dL) 4.7 (Ref Range: 3.5-5.0 g/dL) 4.5 (Ref Range: 3.5-5.0 g/dL) Alkaline Phosphatase 57 (Ref Range: 39-117 U/L) 59 (Ref Range: 39-117 U/L) 59 (Ref Range: 39-117 U/L) Potassium 4.2 (Ref Range: 3.3-5.1 mmol/L) 4.2 (Ref Range: 3.3-5.1 mmol/L) 4.2 (Ref Range: 3.3-5.1 mmol/L) Chloride 108 (Ref Range: 96-108 mmol/L) 107 (Ref Range: 96-108 mmol/L) 107 (Ref Range: 96-108 mmol/L) Carbon Dioxide 28 (Ref Range: 22-29 mmol/L) 29 (Ref Range: 22-29 mmol/L) 26 (Ref Range: 22-29 mmol/L) Anion Gap 10 L (Ref Range: 12-20) 11 L (Ref Range: 12-20) 13 (Ref Range: 12-20) Blood Urea Nitrogen 16 (Ref Range: 9-16 mg/dL) 17 H (Ref Range: 9-16 mg/dL) 11 (Ref Range: 9-16 mg/dL) Creatinine 1.15 (Ref Range: 0.5-1.4 mg/dL) 1.14 (Ref Range: 0.5-1.4 mg/dL) 1.00 (Ref Range: 0.5-1.4 mg/dL) Estimated Glomerular Filt Rate > 60 > 60 > 60 Glucose Fasting 100 H (Ref Range: 60-99 mg/dL) 97 (Ref Range: 60-99 mg/dL) 88 (Ref Range: 60-99 mg/dL) Calcium 9.3 (Ref Range: 8.4-10.2 mg/dL) 9.7 (Ref Range: 8.4-10.2 mg/dL) 9.6 (Ref Range: 8.4-10.2 mg/dL) * Lab:Complete Blood Count Aut o Diff * Order Date 06/12/2024 02/08/2024 07/19/2023 White Blood Count 6.7 (Ref Range: 4.8-10.8 X10*3/uL) 7.1 (Ref Range: 4.8-10.8 X10*3/uL) 6.0 (Ref Range: 4.8-10.8 X10*3/uL) Red Blood Count 5.80 (Ref Range: 4.60-5.80 X10*6/uL) 6.18 H (Ref Range: 4.60-5.80 X10*6/uL) 5.86 H (Ref Range: 4.60-5.80 X10*6/uL) Hemoglobin 16.4 (Ref Range: 14.0-18.0 g/dl) 17.5 (Ref Range: 14.0-18.0 g/dl) 16.5 (Ref Range: 14.0-18.0 g/dl) Hematocrit 47.0 (Ref Range: 42.0-52.0 %) 51.0 (Ref Range: 42.0-52.0 %) 47.3 (Ref Range: 42.0-52.0 %) Mean Corpuscular Volume 81.0 (Ref Range: 80.0-98.0 fL) 82.5 (Ref Range: 80.0-98.0 fL) 80.7 (Ref Range: 80.0-98.0 fL) Mean Corpuscular Hemoglobin 28.3 (Ref Range: 27.0-33.0 pg) 28.3 (Ref Range: 27.0-33.0 pg) 28.2 (Ref Range: 27.0-33.0 pg) Mean Corpuscular HGB Conc 34.9 (Ref Range: 31.0-36.0 g/dl) 34.3 (Ref Range: 31.0-36.0 g/dl) 34.9 (Ref Range: 31.0-36.0 g/dl) Red Cell Distribution Width 12.3 (Ref Range: 11.0-16.0 %) 12.4 (Ref Range: 11.0-16.0 %) 12.1 (Ref Range: 11.0-16.0 %) Platelet Count 237 (Ref Range: 160-400 X10*3/uL) 235 (Ref Range: 160-400 X10*3/uL) 228 (Ref Range: 160-400 X10*3/uL) Mean Platelet Volume 10.7 (Ref Range: 9.4-12.4 fL) 11.0 (Ref Range: 9.4-12.4 fL) 10.9 (Ref Range: 9.4-12.4 fL) Neutrophils Percent Auto 64.0 (Ref Range: 45-73 %) 63.8 (Ref Range: 45-73 %) 62.4 (Ref Range: 45-73 %) Imm Gran Pct Auto 0.9 H (Ref Range: 0.0-0.4 %) 1.1 H (Ref Range: 0.0-0.4 %) 0.8 H (Ref Range: 0.0-0.4 %) Lymphocytes Percent Auto 19.9 L (Ref Range: 20-40 %) 19.6 L (Ref Range: 20-40 %) 22.8 (Ref Range: 20-40 %) Monocytes Percent Auto 11.3 H (Ref Range: 2-11 %) 11.4 H (Ref Range: 2-11 %) 10.5 (Ref Range: 2-11 %) Eosinophils Percent Auto 3.3 (Ref Range: 0-4 %) 3.5 (Ref Range: 0-4 %) 3.0 (Ref Range: 0-4 %) Basophils Percent Auto 0.6 (Ref Range: 0-2 %) 0.6 (Ref Range: 0-2 %) 0.5 (Ref Range: 0-2 %) NRBC Pct Auto 0.0 (Ref Range: 0.0-0.2 /100WBC) 0.0 (Ref Range: 0.0-0.2 /100WBC) 0.0 (Ref Range: 0.0-0.2 /100WBC) Neutrophils Absolute Auto 4.3 (Ref Range: 2.0-8.3 x10*3/uL) 4.6 (Ref Range: 2.0-8.3 x10*3/uL) 3.8 (Ref Range: 2.0-8.3 x10*3/uL) Imm Gran Abs Auto 0.06 H (Ref Range: 0.00-0.03 X10*3/uL) 0.08 H (Ref Range: 0.00-0.03 X10*3/uL) 0.05 H (Ref Range: 0.00-0.03 X10*3/uL) Lymphocytes Absolute Auto 1.3 (Ref Range: 1.2-4.9 X10*3/uL) 1.4 (Ref Range: 1.2-4.9 X10*3/uL) 1.4 (Ref Range: 1.2-4.9 X10*3/uL) Monocytes Absolute Auto 0.8 (Ref Range: 0.1-1.2 X10*3/uL) 0.8 (Ref Range: 0.1-1.2 X10*3/uL) 0.6 (Ref Range: 0.1-1.2 X10*3/uL) Eosinophils Absolute Auto 0.2 (Ref Range: 0.0-0.4 X10*3/uL) 0.3 (Ref Range: 0.0-0.4 X10*3/uL) 0.2 (Ref Range: 0.0-0.4 X10*3/uL) Basophils Absolute Auto 0.0 (Ref Range: 0.0-0.2 X10*3/uL) 0.0 (Ref Range: 0.0-0.2 X10*3/uL) 0.0 (Ref Range: 0.0-0.2 X10*3/uL) NRBC Abs Auto 0.000 (Ref Range: 0.0-0.012 X10*3/uL) 0.000 (Ref Range: 0.0-0.012 X10*3/uL) 0.000 (Ref Range: 0.0-0.012 X10*3/uL) * Examination: G eneral Examination: GENERAL APPEARANCE: p leasant, well nourished, well developed, in no acute distress, calm and relaxed , man. HEAD: a traumatic, normocephalic. EYES: e karen, perrla, anicteric, conjugate. EARS: n ormal. NOSE: s eptum intact. ORAL CAVITY: n ormal, unremarkable. NECK/THYROID: n o jugular venous distention, no carotid bruit, thyroid normal. LYMPH NODES: n o enlarged lymph nodes,spleen normal. SKIN: n o suspicious lesions, anicteric. HEART: n o clicks, gallops, murmurs, or rubs, regular rhythm, S1, S2 normal, no s3, or vascular bruits. LUNGS: c lear to auscultation . BREASTS: no masses palpable bilaterally. ABDOMEN: b owel sounds normal, no ascites, no organomegaly, no mass. RECTAL EXAM: n ot examined. MUSCULOSKELETAL: e xtremities unremarkable, no clubbing, cyanosis or edema, Mild arthritic changes in fingers and hands mild decreased range of motion. PERIPHERAL PULSES: n ormal. NEUROLOGIC: a lert and oriented, cranial nerves 2-12 grossly intact, deep tendon reflexes 2+ symmetrical, motor strength normal upper and lower extremities, sensory exam intact. PSYCH: a lert, oriented, Mild depressive symptoms. ? Assessment: * Assessment: 1. G ERD (gastroesophageal reflux disease) - K21.9 (Primary), He has occasional reflux, which is well controlled with jakl-bno-qowwkoi medications. He will avoid eating late at night. 2 . Carcinoma of prostate - C61, His PSA remains undetectable. There was no sign on examination of recurrent disease. 3 . M ixed hyperlipidemia - E78.2, His total cholesterol is down from 255-234. He has lost 1 pound. He continues to make efforts at lifestyle modification to reduce his 4 .?Osteoarthritis cervical spine - M47.812, He continues to have mild to moderate neck and shoulder pain. 5 . C arpal tunnel syndrome - G56.00, He continues to have symptoms in both hands. He is scheduled for revisional surgery later in the fall. 6 . O besity (BMI 30.0-34.9) - E66.9, His body mass index is 31. He weighs 188 pounds. He remains obese. We have discussed his diet and nutrition. We made a plan to lose weight at a rate of one half of a pound per week. 7 . R eactive depression - F32.9, His psychotherapy continues. The therapist has referred him to a prescriber. 8 . H earing loss, unspecified hearing loss type, unspecified laterality - H91.90, His hearing will be monitored. He has had no change in his hearing, which is slightly diminished. He says he does not need amplification at this time. Plan: * Treatment: 2. C arcinoma of prostate L AB: PROFILE, FASTING (COMPREHENSIVE METABOLIC) L AB: PSA, TOTAL L AB: CBC WITH AUTO DIFF L AB: Lipid Panel 3. M ixed hyperlipidemia L AB: PROFILE, FASTING (COMPREHENSIVE METABOLIC) L AB: PSA, TOTAL L AB: CBC WITH AUTO DIFF L AB: Lipid Panel 4. O thers Continue Ibuprofen Tablet, 800 MG, 1 tablet with food or milk as needed, Orally, every 8 hrs. ? * Procedure Codes: * Preventive Medicine: Counseling: C are goal follow-up plan: Counseling for abnormal BMI given Y es Above Normal BMI Follow-up D ietary management education, guidance, and counseling, Dietary needs education, Exercise promotion: strength training, Exercise promotion: stretching, Feeding regime, Giving encouragement to exercise, Lifestyle education regarding diet, Nutrition / feeding management, Nutrition therapy, Prescribed activity/exercise education, Prescribed diet education, Prescribed dietary intake, Special diet education, Weight monitoring , Intervention, Order not done: Medical or Other reason not done * Follow Up: a s scheduled (Reason: OV) * Images: * Sign off status: Completed true * Provider: Bucky Gayle MD Date: 0 06/12/2024 Generated for Mayte bustamante/Robert/eTtatasmitting on: 10/24/2024 12:12 PM EST History and Physical Notes * HPI (History of Present Illness) Category Sub-Category Detail Notes COVID-19 Screening Questions Have you had any new onset fever, chills, cough, congestion, sore throat, shortness of breath, muscle aches?: No Have you been exposed to the virus withi n the last 10 days?: No Have you travelled internationally in last 10 days?: No Have you been exposed to COVID-19 in the past?: Yes Examination Category Sub-Category Detail Notes General Examination GENERAL APPEARANCE: pleasant , well nourished, well developed, in no acute distress, calm and relaxed , man HEAD: atraumatic, normocep halic EYES: eomi, perrla, anicte shaniqua, conjugate EARS: normal NOSE: septum intact NECK/THYROID: no jugular venous di stention, no carotid bruit, thyroid normal HEART: no clicks, gallops, murmurs, or rubs, regular rhythm, S1, S2 normal, no s3, or vascular bruits LUNGS: clear to auscultatio n ABDOMEN: bowel sounds normal, no ascites, no organomegaly, no mass NEUROLOGIC: alert and oriented, cranial nerves 2-12 grossly intact, deep tendon reflexes 2+ symmetrical, motor strength normal upper and lower extremities, sensory exam intact SKIN: no suspicious lesion s, anicteric PERIPHERAL PULSES: normal BREASTS: no masses palpable b ilaterally MUSCULOSKELETAL: extremities unremark able, no clubbing, cyanosis or edema, Mild arthritic changes in fingers and hands mild decreased range of motion LYMPH NODES: no enlarged lymph no namita,spleen normal RECTAL EXAM: not examined PSYCH: alert, oriented, Mil d depressive symptoms ORAL CAVITY: normal, unremarkable
--- OUTSIDE RECORDS SUMMARY | 2024-09-04 08:09 | XMS_ITS ---
Author Organization Homar Gayle III, MD Address [address] [place] [address] Care Team Providers Care Slab Depiler Operator Name Role Phone Dr. Homar Gayle III Primary Care Provider [phone] REASON FOR VISIT Rx Refill Medications Medication SIG (Take, Route, Fr equency, Duration) Notes Start Date End Date Status Ibuprofen 800 MG 1 tablet with food o r milk as needed Orally every 8 hrs for 30 days 08/23/2023 08/30/2025 Active Social History Sex Assigned At : Social History Observation Description Sex Assigned At Male Encounters Encounter Location Date Provider Diagnosis Homar Gayle III, MD [address] [place] [address] [address] [facility] [place] [address] 09/04/2024 Homar Gayle Plan Of Treatment Medication Medication Name Sig Start Date Stop Date Notes Ibuprofen 800 MG 1 tablet with food o r milk as needed Orally every 8 hrs for 30 days 08/23/2023 08/30/2025 Next Appt Details Provider Name:Homar Gayle , 10/19/2025 10:00:00 AM, [address] [place] [address] [place], [address], Progress Notes * Ang GALVEZDOB: [birth year] (54 yo M)Acc No.[id number]:09/04/2024 Patient: Austen LOPEZ Ang :1970 A ge:54 Y S ex:Male Address:[address] [place] [address] * Refills Refill Ibuprofen Tablet, 800 MG, Orally, 90 Tablet, 1 tablet with food or milk as needed, every 8 hrs, 30 days, Refills=11 * true * Date: Generated for Mayte bustamante/Robert/Deshaun on: 10/24/2024 12:11 PM EST
--- OUTSIDE RECORDS SUMMARY | 2024-10-13 05:00 | XMS_ITS ---
Author Organization Homar Gayle III, MD Address [address] [place] [address] [place] [address] Care Team Providers Care Jboss Developer Name Role Phone Dr. Homar Gayle III Primary Care Provider [phone] Allergies Allergen (clinical drug ingredient) Drug/Non Drug Allergy documented on EMR Reaction Allergy Type Onset Date Status dexamethasone Dexamethasone Unknown Drug Allergy Active Results Component Value Reference Range Notes URINE DIP STICK Reviewed date:10/13/2024 10:22:09 AM Interpretation: Performing Lab: Notes/Report: SG 1.020 1.005 - 1.025 pH 5.0 5.0 - 9.0 JANNETTE Negative Negative - NIT Negative Negative - PRO 15 Negative - Trace GLU Negative Negative - KET Negative Negative - UBG 0.2 0.1 - 1.8 MAT 1 0.2 - 1.3 BLD Negative Negative - REASON FOR VISIT Annual Exam Medications Medication SIG (Take, Route, Frequency, Duration) [...] nonsmoker Additional Findings: Tobacco Non-User Aggressive non-smoker Tobacco Control (Standard) Question Answer Notes Tobacco use: Nonsmoker Additional Findings: Tobacco non-user Aggressive nonsmoker AUDIT-C (Standard) Question Answer Notes Did you have a drink containing alcohol in the p ast year? No Points 0 Interpretation Negative Vital Signs Temperature 100 degrees Fahrenheit 4 Blood pressure systolic 135 mm Hg 10/13/20 24 Blood pressure diastolic 78 mm Hg 024 Heart Rate 75 /min 10/13/2024 Height 65 in 10/13/2024 Weight 182 lbs 10/13/2024 BMI 30.28 kg/m2 10/13/2024 Encounters Encounter Location Date Provider Diagnosis Homar Gayle III, MD [address] [place] [address] [place] [address] 10/13/2024 Homar Gayle GERD (gastroesophage al reflux disease) K21.9 ; Carcinoma of prostate C61 ; Mixed hyperlipidemia E78.2 ; Osteoarthritis cervical spine M47.812 ; Hearing loss, unspecified hearing loss type, unspecified laterality H91.90 and Obesity E66.9 Assessments Encounter Date Diagnosis (ICD Code) Assessment Notes Treat ment Notes Treatment Clinical Notes 10/13/2024 GERD (gastroesophageal reflux disease) (ICD-10 - K21.9) He has occasional reflux, which is well controlled with lmal-kob-djhupmh medications. He will avoid eating late at night. 10/13/2024 Carcinoma of prostat e (ICD-10 - C61) His PSA remains undetectable. There was no sign on examination of recurrent disease. 10/13/2024 Mixed hyperlipidemia (ICD-10 - E78.2) His total cholesterol is down to 229. It continues to improve.. He has lost 6 pounds. He continues to make efforts at lifestyle modification to reduce his 10/13/2024 Osteoarthritis cervical spine (ICD-10 - M47.812) He continues to have mild to moderate neck and shoulder pain. 10/13/2024 Hearing loss, unspecified hearing loss type, unspecified laterality (ICD-10 - H91.90) His hearing will be monitored. He has had no change in his hearing, which is slightly diminished. He says he does not need amplification at this time. 10/13/2024 Obesity (ICD-10 - E66.9) He has lost 6 pounds in his body mass index is 30. I have recommended weight loss through exercise and a diet restricted in fat and calories. Plan Of Treatment Medication Medication Name Sig Start Date Stop Date Notes Electrodes 2 x2 /Reusable - as directed apply to skin use with Tens machine 10/23/2020 Ibuprofen 800 MG 1 tablet with food o r milk as needed Orally every 8 hrs 08/23/2023 Next Appt Details Follow Up: 6 Months, 6 month s, Reason: OV, Routine check-up Provider Name:Homar Gayle , 10/19/2025 10:00:00 AM, [address] [place] [address] [place] [address], [place], [address], Progress Notes * GALVEZAngDOB: [birth year] (54 yo M)Acc No.[id number]:10/13/2024 Progress Notes Patient: Her GERARDOiberto Provider: Bucky Gayle MD :1970 A ge:54 Y S ex:Male Date:10/13/2024 Address:[address] [place], [place] [id number] Subjective: * Chief Complaints: * A nnual Exam * HPI: D epression Screening: PHQ-9 L ittle interest or pleasure in doing things?Several days F eeling down, depressed, or hopeless N ot at all T rouble falling or staying asleep, or sleeping too much S everal days F eeling tired or having little energy S everal days P oor appetite or overeating S everal days F eeling bad about yourself or that you are a failure, or have let yourself or your family down N ot at all T rouble concentrating on things, such as reading the newspaper or watching television N ot at all M oving or speaking so slowly that other people could have noticed; or the opposite, being so fidgety or restless that you have been moving around a lot more than usual N ot at all T houghts that you would be better off or of hurting yourself in some way N ot at all T otal Score 4 I nterpretation M inimal Depression C OVID-19 Screening: Questions H ave you had any new onset fever, chills, cough, congestion, sore throat, shortness of breath, muscle aches? N o S JUNIOR Questions: SDOH Questions I n the past year have you been worried about losing your housing? N o I n the past year have you or any family members you live with been unable to get any of the following when it was really needed? Check all that apply: N one * : The patient, a 54-year-old male, has been experiencing intermittent pain in his neck due to arthritis. The severity of the pain varies and is influenced by his sleeping position. He has been using a long pillow to alleviate the discomfort, but the relief is temporary. He also reports experiencing short, sharp pain that wakes him up. Additionally, he has been experiencing hearing issues and uses an earpiece to aid his hearing. He also reports occasional urinary incontinence, particularly when lifting heavy objects. The patient has a history of prostate cancer and underwent surgery five years ago. He has been experiencing tingling in his hand, which is likely due to nerve compression. He has been referred to a specialist for this issue. The patient also has a history of high cholesterol, which has been improving over time. His current cholesterol level is 229, down from 255 eight months ago. His blood sugar levels and kidney function are normal. He has lost 7 lbs since his last visit in January. * ROS: G eneral/Constitutional: Admits p ain, N juan luis shoulders hands hips and knees.?Chills d enies. F atigue a dmits. F ever d enies. E NT: Decreased hearing i n both ears. R espiratory: Cough d enies. C ardiovascular: Chest pain with exertion d enies. D yspnea on exertion?denies. S hortness of breath d enies. G astrointestinal: Constipation d enies. D ecreased appetite d enies.?Diarrhea d enies. H eartburn d enies. N ausea d enies. R ectal bleeding?denies. V omiting d enies. H ematology: bruising d enies. p etechiae d enies. S wollen glands n one have been noted. G enitourinary: Frequent urination o nce a night. A dmits U rinary Incontinence. M usculoskeletal: Muscle aches d enies. P ainful joints d enies. S ciatica d enies. W eakness d enies. S kin: Itching d enies. R patricio d enies. S kin lesion(s)?denies. N eurologic: Difficulty speaking d enies. D izziness d enies.?Headache d enies. L ow back pain d enies. P sychiatric: Depressed mood d enies. * Medical History: * Surgical History: l ithotripsy 01/2011carpal tunnel release, right wrist 10/2014Colonoscopy with snare polyectomy 3Prostate cancer surgery - 5 years ago * Hospitalization/Major Diagno stic Procedure: P ROSTATE BIOPSY 05/2019 * Family History: F ather: 28 yrs, homicide. M other: alive 57 yrs. S iblings: . S pouse: alive 38 yrs. 6 brother(s) , 1 sister(s) . 1 son(s) , 3 daughter(s) - healthy. . A brother in infancy. His mother lives in [place]. He is not aware of any family history of substance use disorder or addiction or mental illness. * Social History: T obacco Use: T obacco Use/Smoking P atraj is a n onsmoker A dditional Findings: Tobacco Non-User A ggressive non-smoker Tobacco Control (Standard) T obacco use: N onsmoker A dditional Findings: Tobacco non-user A ggressive nonsmoker D rugs/Alcohol: D rugs H ave you used drugs other than those for medical reasons in the past 12 months? N o D rug/Alcohol: A ERICK-C (Standard) D id you have a drink containing alcohol in the past year? 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 He was born in [facility]. He enjoys kick boxing and art. He is not aware of any family history of mental illness or substance use disorder or addiction. There is no history of cancer in the family. * Medications: T akingElectrodes 2 x2 /Reusable - Miscellaneous as directed apply to skin use with Tens machine Ibuprofen 800 MG Tablet 1 tablet with food or milk as needed Orally every 8 hrs , stop date 08/30/2025Medication List reviewed and reconciled with the patientTaking Electrodes 2 x2 /Reusable - Miscellaneous as directed apply to skin use with Tens machine Taking Ibuprofen 800 MG Tablet 1 tablet with food or milk as needed Orally every 8 hrs , stop date 08/30/2025Medication List reviewed and reconciled with the patient * Allergies: D examethasoneno[Allergies Verified] Objective: * Vitals: H t: 65, Wt: 182, BMI:30.28, BP: 135/78, HR: 75, Temp: 100, Wt-k.55. * P ast Orders: Lab:Complete Blood Count Aut o Diff * Collection Date 10/12/2024 06/12/2024 02/08/2024 Collection Time 07:35 AM 07:32 AM 07:25 AM Order Date 10/12/2024 06/12/2024 02/08/2024 White Blood Count 6.7 (Ref Range: 4.8-10.8 X10*3/uL) 6.7 (Ref Range: 4.8-10.8 X10*3/uL) 7.1 (Ref Range: 4.8-10.8 X10*3/uL) Red Blood Count 5.83 H (Ref Range: 4.60-5.80 X10*6/uL) 5.80 (Ref Range: 4.60-5.80 X10*6/uL) 6.18 H (Ref Range: 4.60-5.80 X10*6/uL) Hemoglobin 16.5 (Ref Range: 14.0-18.0 g/dl) 16.4 (Ref Range: 14.0-18.0 g/dl) 17.5 (Ref Range: 14.0-18.0 g/dl) Hematocrit 47.3 (Ref Range: 42.0-52.0 %) 47.0 (Ref Range: 42.0-52.0 %) 51.0 (Ref Range: 42.0-52.0 %) Mean Corpuscular Volume 81.1 (Ref Range: 80.0-98.0 fL) 81.0 (Ref Range: 80.0-98.0 fL) 82.5 (Ref Range: 80.0-98.0 fL) Mean Corpuscular Hemoglobin 28.3 (Ref Range: 27.0-33.0 pg) 28.3 (Ref Range: 27.0-33.0 pg) 28.3 (Ref Range: 27.0-33.0 pg) Mean Corpuscular HGB Conc 34.9 (Ref Range: 31.0-36.0 g/dl) 34.9 (Ref Range: 31.0-36.0 g/dl) 34.3 (Ref Range: 31.0-36.0 g/dl) Red Cell Distribution Width 12.4 (Ref Range: 11.0-16.0 %) 12.3 (Ref Range: 11.0-16.0 %) 12.4 (Ref Range: 11.0-16.0 %) Platelet Count 244 (Ref Range: 160-400 X10*3/uL) 237 (Ref Range: 160-400 X10*3/uL) 235 (Ref Range: 160-400 X10*3/uL) Mean Platelet Volume 10.9 (Ref Range: 9.4-12.4 fL) 10.7 (Ref Range: 9.4-12.4 fL) 11.0 (Ref Range: 9.4-12.4 fL) Neutrophils Percent Auto 67.1 (Ref Range: 45-73 %) 64.0 (Ref Range: 45-73 %) 63.8 (Ref Range: 45-73 %) Imm Gran Pct Auto 0.7 H (Ref Range: 0.0-0.4 %) 0.9 H (Ref Range: 0.0-0.4 %) 1.1 H (Ref Range: 0.0-0.4 %) Lymphocytes Percent Auto 19.4 L (Ref Range: 20-40 %) 19.9 L (Ref Range: 20-40 %) 19.6 L (Ref Range: 20-40 %) Monocytes Percent Auto 10.5 (Ref Range: 2-11 %) 11.3 H (Ref Range: 2-11 %) 11.4 H (Ref Range: 2-11 %) Eosinophils Percent Auto 1.9 (Ref Range: 0-4 %) 3.3 (Ref Range: 0-4 %) 3.5 (Ref Range: 0-4 %) Basophils Percent Auto 0.4 (Ref Range: 0-2 %) 0.6 (Ref Range: 0-2 %) 0.6 (Ref Range: 0-2 %) NRBC Pct Auto 0.0 (Ref Range: 0.0-0.2 /100WBC) 0.0 (Ref Range: 0.0-0.2 /100WBC) 0.0 (Ref Range: 0.0-0.2 /100WBC) Neutrophils Absolute Auto 4.5 (Ref Range: 2.0-8.3 x10*3/uL) 4.3 (Ref Range: 2.0-8.3 x10*3/uL) 4.6 (Ref Range: 2.0-8.3 x10*3/uL) Imm Gran Abs Auto 0.05 H (Ref Range: 0.00-0.03 X10*3/uL) 0.06 H (Ref Range: 0.00-0.03 X10*3/uL) 0.08 H (Ref Range: 0.00-0.03 X10*3/uL) Lymphocytes Absolute Auto 1.3 (Ref Range: 1.2-4.9 X10*3/uL) 1.3 (Ref Range: 1.2-4.9 X10*3/uL) 1.4 (Ref Range: 1.2-4.9 X10*3/uL) Monocytes Absolute Auto 0.7 (Ref Range: 0.1-1.2 X10*3/uL) 0.8 (Ref Range: 0.1-1.2 X10*3/uL) 0.8 (Ref Range: 0.1-1.2 X10*3/uL) Eosinophils Absolute Auto 0.1 (Ref Range: 0.0-0.4 X10*3/uL) 0.2 (Ref Range: 0.0-0.4 X10*3/uL) 0.3 (Ref Range: 0.0-0.4 X10*3/uL) Basophils Absolute Auto 0.0 (Ref Range: 0.0-0.2 X10*3/uL) 0.0 (Ref Range: 0.0-0.2 X10*3/uL) 0.0 (Ref Range: 0.0-0.2 X10*3/uL) NRBC Abs Auto 0.000 (Ref Range: 0.0-0.012 X10*3/uL) 0.000 (Ref Range: 0.0-0.012 X10*3/uL) 0.000 (Ref Range: 0.0-0.012 X10*3/uL) * Lab:Prostate Specific Antige n * Collection Date 10/12/2024 08/09/2024 06/12/2024 Collection Time 07:35 AM 09:43 AM 07:32 AM Order Date 10/12/2024 08/09/2024 06/12/2024 Prostate Specific Antigen < 0.10 (Ref Range: <0.05-4.0 ng/mL) < 0.10 (Ref Range: <0.05-4.0 ng/mL) < 0.10 (Ref Range: <0.05-4.0 ng/mL) * Lab:Comprehensive [place]. Pane l Fast * Collection Date 10/12/2024 06/12/2024 02/08/2024 Collection Time 07:35 AM 07:32 AM 07:25 AM Order Date 10/12/2024 06/12/2024 02/08/2024 Sodium 140 (Ref Range: 135-145 mmol/L) 142 (Ref Range: 135-145 mmol/L) 143 (Ref Range: 135-145 mmol/L) Bilirubin Total 0.6 (Ref Range: 0.0-1.0 mg/dL) 0.7 (Ref Range: 0.0-1.0 mg/dL) 0.8 (Ref Range: 0.0-1.0 mg/dL) Aspartate Amino Transferase 24 (Ref Range: 5-37 U/L) 19 (Ref Range: 5-37 U/L) 23 (Ref Range: 5-37 U/L) Alanine Aminotransferase 30 (Ref Range: 0-40 U/L) 22 (Ref Range: 0-40 U/L) 35 (Ref Range: 0-40 U/L) Total Protein 7.3 (Ref Range: 6.5-8.0 g/dL) 7.2 (Ref Range: 6.5-8.0 g/dL) 7.8 (Ref Range: 6.5-8.0 g/dL) Albumin Level 4.5 (Ref Range: 3.5-5.0 g/dL) 4.4 (Ref Range: 3.5-5.0 g/dL) 4.7 (Ref Range: 3.5-5.0 g/dL) Alkaline Phosphatase 58 (Ref Range: 39-117 U/L) 57 (Ref Range: 39-117 U/L) 59 (Ref Range: 39-117 U/L) Potassium 3.9 (Ref Range: 3.3-5.1 mmol/L) 4.2 (Ref Range: 3.3-5.1 mmol/L) 4.2 (Ref Range: 3.3-5.1 mmol/L) Chloride 109 H (Ref Range: 96-108 mmol/L) 108 (Ref Range: 96-108 mmol/L) 107 (Ref Range: 96-108 mmol/L) Carbon Dioxide 25 (Ref Range: 22-29 mmol/L) 28 (Ref Range: 22-29 mmol/L) 29 (Ref Range: 22-29 mmol/L) Anion Gap 10 L (Ref Range: 12-20) 10 L (Ref Range: 12-20) 11 L (Ref Range: 12-20) Blood Urea Nitrogen 16 (Ref Range: 9-16 mg/dL) 16 (Ref Range: 9-16 mg/dL) 17 H (Ref Range: 9-16 mg/dL) Creatinine 0.97 (Ref Range: 0.5-1.4 mg/dL) 1.15 (Ref Range: 0.5-1.4 mg/dL) 1.14 (Ref Range: 0.5-1.4 mg/dL) Estimated Glomerular Filt Rate > 60 > 60 > 60 Glucose Fasting 96 (Ref Range: 60-99 mg/dL) 100 H (Ref Range: 60-99 mg/dL) 97 (Ref Range: 60-99 mg/dL) Calcium 9.7 (Ref Range: 8.4-10.2 mg/dL) 9.3 (Ref Range: 8.4-10.2 mg/dL) 9.7 (Ref Range: 8.4-10.2 mg/dL) * Lab:Lipid Panel * Collection Date 10/12/2024 06/12/2024 02/08/2024 Collection Time 07:35 AM 07:32 AM 07:25 AM Order Date 10/12/2024 06/12/2024 02/08/2024 Triglycerides 237 H (Ref Range: <150 mg/dL) 197 H (Ref Range: <150 mg/dL) 256 H (Ref Range: <150 mg/dL) Cholesterol 229 H (Ref Range: <200 mg/dL) 234 H (Ref Range: <200 mg/dL) 255 H (Ref Range: <200 mg/dL) LDL Cholesterol Calculated 134 H (Ref Range: <100 mg/dL) 142 H (Ref Range: <100 mg/dL) 155 H (Ref Range: <100 mg/dL) HDL Cholesterol 48 (Ref Range: >40 mg/dL) 53 (Ref Range: >40 mg/dL) 49 (Ref Range: >40 mg/dL) * Examination: G eneral Examination: GENERAL APPEARANCE: p leasant, well nourished, well developed, in no acute distress, calm and relaxed, obese, man. HEAD: a traumatic, normocephalic. EYES: e [...] sounds normal, no ascites, no organomegaly, no mass, centripital obesity. RECTAL EXAM: n ot examined. MUSCULOSKELETAL: e xtremities unremarkable, no clubbing, cyanosis or edema, Normal appearance to joints. PERIPHERAL PULSES: n ormal. NEUROLOGIC: a lert and oriented, cranial nerves 2-12 grossly intact, deep tendon reflexes 2+ symmetrical, motor strength normal upper and lower extremities, sensory exam intact. PSYCH: a lert, oriented. Assessment: * Assessment: 1. C arcinoma of prostate - C61 (Primary) N otes :His PSA remains undetectable. There was no sign on examination of recurrent disease. 2 . G ERD (gastroesophageal reflux disease) - K21.9 N otes :He has occasional reflux, which is well controlled with wiqf-ypm-vupjkez medications. He will avoid eating late at night. 3 . M ixed hyperlipidemia - E78.2 N otes :His total cholesterol is down to 229. It continues to improve.. He has lost 6 pounds. He continues to make efforts at lifestyle modification to reduce his 4 . O steoarthritis cervical spine - M47.812 N otes :He continues to have mild to moderate neck and shoulder pain. 5 . H earing loss, unspecified hearing loss type, unspecified laterality - H91.90 N otes :His hearing will be monitored. He has had no change in his hearing, which is slightly diminished. He says he does not need amplification at this time. 6 . O besity - E66.9 N otes :He has lost 6 pounds in his body mass index is 30. I have recommended weight loss through exercise and a diet restricted in fat and calories. Plan: * Treatment: 2. M ixed hyperlipidemia L AB: PROFILE, FASTING (COMPREHENSIVE METABOLIC) L AB: PSA, TOTAL L AB: CBC WITH AUTO DIFF L AB: Lipid Panel 3. O thers Continue Ibuprofen Tablet, 800 MG, 1 tablet with food or milk as needed, Orally, every 8 hrs. ? * Labs: * L ab: URINE DIP STICK (Collection Date & Time - 10/13/2024) Value Reference Range S G 1.020 1.005 - 1.025 * p H 5.0 5.0 - 9.0 * L EU Negative Negative - * N IT Negative Negative - * P RO 15 Negative - Trace * G KHUSHBOO Negative Negative - * K ET Negative Negative - * U BG 0.2 0.1 - 1.8 * B IL 1 0.2 - 1.3 * B LD Negative Negative - * Procedure Codes: 8 1002 URINE-NO MICRO * Preventive Medicine: Counseling: C are goal [...] Other reason not done * Follow Up: 6 Months, 6 months (Reason: OV, Routine check-up) * Images: * Sign off status: Completed true * Provider: Bucky Gayle MD Date: 12/14/2023 Generated for Mayte bustamante/Robert/eTransmitting on: 10/24/2024 12:12 PM EST History and Physical Notes * HPI (History of Present Illness) Category Sub-Category Detail Notes Depression Screening PHQ-9 Little inte rest or pleasure in doing things: Several days Feeling down, depressed, or hopeless: No t at all Trouble falling or staying asleep, or sl eeping too much: Several days Feeling tired or having little energy: S everal days Poor appetite or overeating: Several day s Feeling bad about yourself o r that you are a failure, or have let yourself or your family down: Not at all Trouble concentrating on thi ngs, such as reading the newspaper or watching television: Not at all Moving or speaking so slowly that other people could have noticed; or the opposite, being so fidgety or restless that you have been moving around a lot more than usual: Not at all Thoughts that you would be b fantasma off or of hurting yourself in some way: Not at all Total Score: 4 Interpretation: Minimal Depression COVID-19 Screening Questions Have you had any new onset fever, chills, cough, congestion, sore throat, shortness of breath, muscle aches?: No SDOH Questions SDOH Questions In the past year have you been worried about losing your housing?: No In the past year have you or any family members you live with been unable to get any of the following when it was really needed? Check all that apply:: None Examination Category Sub-Category Detail Notes General Examination GENERAL APPEARANCE: pleasant , well nourished, well developed, in no acute distress, calm and relaxed, obese, man HEAD: atraumatic, normocep halic EYES: eomi, perrla, anicte shaniqua, conjugate EARS: normal NOSE: septum intact NECK/THYROID: no jugular venous di stention, no carotid bruit, thyroid normal HEART: no clicks, gallops, murmurs, or rubs, regular rhythm, S1, S2 normal, no s3, or vascular bruits LUNGS: clear to auscultatio n ABDOMEN: bowel sounds normal, no ascites, no organomegaly, no mass, centripital obesity NEUROLOGIC: alert and oriented, cranial nerves 2-12 grossly intact, deep tendon reflexes 2+ symmetrical, motor strength normal upper and lower extremities, sensory exam intact SKIN: no suspicious lesion s, anicteric PERIPHERAL PULSES: normal BREASTS: no masses palpable b ilaterally MUSCULOSKELETAL: extremities unremark able, no clubbing, cyanosis or edema, Normal appearance to joints LYMPH NODES: no enlarged lymph no namita,spleen normal RECTAL EXAM: not examined PSYCH: alert, oriented ORAL CAVITY: normal, unremarkable
--- OUTSIDE RECORDS SUMMARY | 2024-12-05 04:12 | XMS_ITS ---
Author Organization Homar Gayle III, MD Address [address] [place] [address] Care Team Providers Care Clockmaker Apprentice Name Role Phone Dr. Homar Gayle III Primary Care Provider REASON FOR VISIT Message Social History Sex Assigned At : Social History Observation Description Sex Assigned At Male Encounters Encounter Location Date Provider Diagnosis Homar Gayle III, MD [address] [place] [address] [address] [facility] [place] [address] 12/05/2024 Homar Gayle Plan Of Treatment Next Appt Details Provider Name:Homar Gayle , 10/19/2025 10:00:00 AM, [address] [place] [address] [place], [address], Progress Notes * Ang GALVEZDOB: [birth year] (54 yo M)Acc No.[id number]:12/05/2024 Patient: Austen ANDERSONAng ROSS :1970 A ge:54 Y S ex:Male Address:[address] [place] [address] * true * Date: Generated for Mayte bustamante/Robert/eTransmitting on: 10/24/2024 12:11 PM EST
--- OUTSIDE RECORDS SUMMARY | 2024-12-06 09:30 | XMS_ITS ---
Author Organization Homar Gayle III, MD Address [address] [place] [address] Care Team Providers Care Continuity Clerk Name Role Phone Dr. Homar Gayle III Primary Care Provider [phone] Allergies Allergen (clinical drug ingredient) Drug/Non Drug Allergy documented on EMR Reaction Allergy Type Onset Date Status dexamethasone Dexamethasone Unknown Drug Allergy Active REASON FOR VISIT 2.5 mm kidney stone distal right ureter December 03, 2024, Ongoing renal colic Medications Medication SIG (Take, Route, Frequency, Duration) Notes Start Date End Date Status Electrodes 2 x2 /Reusable - as directed apply to skin use with Tens machine 10/23/2020 Active Tamsulosin HCl 0.4 MG 1 capsule Orally Once a day Prescribed by ED Active Ibuprofen 800 MG 1 tablet with food or milk as needed Orally every 8 hrs 08/23/2023 Active Ondansetron 4 MG 1 tablet on the tongue and allow to dissolve Orally Once a day Prescribed by ED Active oxyCODONE HCl 5 MG 1 tablet as needed Orally every 6 hrs Prescribed by ED Active oxyCODONE HCl 5 MG 1 tablet Orally every 6 hrs FOR PAIN for 4 days Partial Fill upon Patient Request 12/06/2024 12/10/2024 Active Social History Tobacco Use: Social History Observation Description Date Details (start date - stop date) Never Smoker NA - NA Sex Assigned At : Social History Observation Description Sex Assigned At Male Tobacco Use/Smoking Question Answer Notes Patient is a nonsmoker Additional Findings: Tobacco Non-User Aggressive non-smoker Tobacco Control (Standard) Question Answer Notes Tobacco use: Nonsmoker Additional Findings: Tobacco non-user Aggressive nonsmoker Problems Problem Type SNOMED Code ICD Code Onset Dates Problem Status W/U Status Risk Notes Problem 07203561 Ureterolithiasis (N20.1) Active confirmed He is currently experiencing renal colic on the right. He has an adequate supply of pain medication. He says it is effective. He has been advised about fluid intake and stone preservation. He was instructed to call me at once if the stone passes. The urology Department is aware of him from the emergency room. Vital Signs Temperature 97.9 degrees Fahrenheit 12/06/19 25 Blood pressure systolic 138 mm Hg 12/06/19 25 Blood pressure diastolic 80 mm Hg 025 Heart Rate 83 /min 12/06/2024 Height 65 in 12/06/2024 Weight 185 lbs 12/06/2024 BMI 30.78 kg/m2 12/06/2024 Encounters Encounter Location Date Provider Diagnosis Homar Gayle III, MD [address] [place] [address] [place] [address] 12/06/2024 Homar Gayle GERD (gastroesophage al reflux disease) K21.9 ; Ureterolithiasis N20.1 ; Carpal tunnel syndrome G56.00 ; Osteoarthritis cervical spine M47.812 ; Mixed hyperlipidemia E78.2 ; Reactive depression F32.9 and Carcinoma of prostate C61 Assessments Encounter Date Diagnosis (ICD Code) Assessment Notes Treat ment Notes Treatment Clinical Notes 12/06/2024 GERD (gastroesophage al reflux disease) (ICD-10 - K21.9) He has occasional reflux, which is well controlled with uedp-wri-oohfhko medications. He will avoid eating late at night. 12/06/2024 Ureterolithiasis (ICD-10 - N20.1) He is currently experiencing renal colic on the right. He has an adequate supply of pain medication. He says it is effective. He has been advised about fluid intake and stone preservation. He was instructed to call me at once if the stone passes. The urology Department is aware of him from the emergency room. 12/06/2024 Carpal tunnel syndro me (ICD-10 - G56.00) He continues to have symptoms in both hands. He is scheduled for revisional surgery later in the fall. 12/06/2024 Osteoarthritis cervical spine (ICD-10 - M47.812) He continues to have mild to moderate neck and shoulder pain. 12/06/2024 Mixed hyperlipidemia (ICD-10 - E78.2) His total cholesterol is down to 229. It continues to improve.. He has lost 6 pounds. He continues to make efforts at lifestyle modification to reduce his 12/06/2024 Reactive depression (ICD-10 - F32.9) His psychotherapy continues. The therapist has referred him to a prescriber. 12/06/2024 Carcinoma of prostat e (ICD-10 - C61) His PSA remains undetectable. There was no sign on examination of recurrent disease. Plan Of Treatment Medication Medication Name Sig Start Date Stop Date Notes Electrodes 2 x2 /Reusable - as directed apply to skin use with Tens machine 10/23/2020 Tamsulosin HCl 0.4 MG 1 capsule Orally Once a day Prescribed by ED Ibuprofen 800 MG 1 tablet with food or milk as needed Orally every 8 hrs 08/23/2023 Ondansetron 4 MG 1 tablet on the tongue and allow to dissolve Orally Once a day Prescribed by ED oxyCODONE HCl 5 MG 1 tablet as needed Orally every 6 hrs Prescribed by ED oxyCODONE HCl 5 MG 1 tablet Orally every 6 hrs FOR PAIN for 4 days 12/06/2024 12/10/2024 Partial Fill upon Patient Request Next Appt Details Follow Up: As Scheduled, Araceli son: OV Provider Name:Homar Gayle , 10/19/2025 10:00:00 AM, [address] [place] [address] [address], [address], Progress Notes * Ang GALVEZDOB: [birth year] (54 yo M)Acc No.[id number]:12/06/2024 Progress Notes Patient: Her GERARDOiberto Provider: Bucky Gayle MD :1970 A ge:54 Y S ex:Male Date:12/06/2024 Address:[address] [place] [address] KALI [id number] Subjective: * Chief Complaints: * 2 .5 mm kidney stone distal right ureter December 03, 2024Ongoing renal colic * HPI: C OVID-19 Screening: He went to the [facility] emergency room December 03, 2024 with severe pain and was found to have a 2.5 mm right ureterkidney stone just above the bladder. He was treated and returned home. He comes in today in follow-up. He continues to have the same renal colic. I have refilled his pain medication prescription. He was instructed on fluid consumption. Close follow-up visit was arranged. He was instructed to retain the stone if it passes.? He was given a strainer by the emergency room. I reviewed why this is important with him. Questions H ave you had any new onset fever, chills, cough, congestion, sore throat, shortness of breath, muscle aches? N o * ROS: G eneral/Constitutional: pain R ight back pain radiating into groin. C hills?denies. F atigue a dmits. F ever d enies. E NT: Decreased hearing d enies. R espiratory: Cough d enies. C ardiovascular: Chest pain with exertion d enies. D yspnea on exertion?denies. S hortness of breath d enies. G astrointestinal: Constipation t hat is moderate. D ecreased appetite?denies. D iarrhea d enies. H eartburn d enies. N ausea d enies. R ectal bleeding d enies. V omiting d enies. H ematology: bruising d enies. p etechiae d enies. S wollen glands n one have been noted. G enitourinary: Frequent urination d enies. M usculoskeletal: Muscle aches d enies. P ainful joints d enies. S ciatica d enies. W eakness d enies. S kin: Itching d enies. R patricio d enies. S kin lesion(s)?denies. N eurologic: Difficulty speaking d enies. D izziness d enies.?Headache d enies. L ow back pain t hat is new. P sychiatric: Depressed mood w hich is [...] brother in infancy. His mother lives in [place]. He is not aware of any family history of substance use disorder or addiction or mental illness. 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 He was born in [facility]. He enjoys kick boxing and art. He is not aware of any family history of mental illness or substance use disorder or addiction. There is no history of cancer in the family. * Medications: T akingOndansetron 4 MG Tablet Disintegrating 1 tablet on the tongue and allow to dissolve Orally Once a day , Notes to Pharmacist: Prescribed by EDoxyCODONE HCl 5 MG Tablet 1 tablet as needed Orally every 6 hrs , Notes to Pharmacist: Prescribed by EDTamsulosin HCl 0.4 MG Capsule 1 capsule Orally Once a day , Notes to Pharmacist: Prescribed by EDIbuprofen 800 MG Tablet 1 tablet with food or milk as needed Orally every 8 hrs Electrodes 2 x2 /Reusable - Miscellaneous as directed apply to skin use with Tens machine Medication List reviewed and reconciled with the patientTaking Ondansetron 4 MG Tablet Disintegrating 1 tablet on the tongue and allow to dissolve Orally Once a day , Notes to Pharmacist: Prescribed by EDTaking oxyCODONE HCl 5 MG Tablet 1 tablet as needed Orally every 6 hrs , Notes to Pharmacist: Prescribed by EDTaking Tamsulosin HCl 0.4 MG Capsule 1 capsule Orally Once a day , Notes to Pharmacist: Prescribed by EDTaking Ibuprofen 800 MG Tablet 1 tablet with food or milk as needed Orally every 8 hrs Taking Electrodes 2 x2 /Reusable - Miscellaneous as directed apply to skin use with Tens machine Medication List reviewed and reconciled with the patient * Allergies: D examethasone Objective: * Vitals: H t: 65, Wt: 185, BMI:30.78, BP: 138/80, HR: 83, Temp: 97.9, Wt-k.91. * Examination: G eneral Examination: GENERAL APPEARANCE: p tangela, well nourished, well developed, in no acute [...] obesity. RECTAL EXAM: n ot examined. MUSCULOSKELETAL: D iscomfort to range of motion of shoulders elbows and hips. PERIPHERAL PULSES: n ormal. NEUROLOGIC: a lert and oriented, cranial nerves 2-12 grossly intact, deep tendon reflexes 2+ symmetrical, motor strength normal upper and lower extremities, sensory exam intact. PSYCH: a lert, oriented. Assessment: * Assessment: 1. U reterolithiasis - N20.1 (Primary) N otes :He is currently experiencing renal colic on the right. He has an adequate supply of pain medication. He says it is effective. He has been advised about fluid intake and stone preservation. He was instructed to call me at once if the stone passes. The urology Department is aware of him from the emergency room. 2 . G ERD (gastroesophageal reflux disease) - K21.9 N otes :He has occasional reflux, which is well controlled with dcdp-coi-todnlgu medications. He will avoid eating late at night. 3 . C arpal tunnel syndrome - G56.00 N otes :He continues to have symptoms in both hands. He is scheduled for revisional surgery later in the fall. 4 . O steoarthritis cervical spine - M47.812 N otes :He continues to have mild to moderate neck and shoulder pain. 5 . M ixed hyperlipidemia - E78.2 N otes :His total cholesterol is down to 229. It continues to improve.. He has lost 6 pounds. He continues to make efforts at lifestyle modification to reduce his 6 . R eactive depression - F32.9 N otes :His psychotherapy continues. The therapist has referred him to a prescriber. 7 . C arcinoma of prostate - C61 N otes :His PSA remains undetectable. There was no sign on examination of recurrent disease. Plan: * Treatment: 2. O thers Continue Ondansetron Tablet Disintegrating, 4 MG, 1 tablet on the tongue and allow to dissolve, Orally, Once a day, Notes to Pharmacist: Prescribed by ED; C ontinue oxyCODONE HCl Tablet, 5 MG, 1 tablet as needed, Orally, every 6 hrs, Notes to Pharmacist: Prescribed by ED; C ontinue Tamsulosin HCl Capsule, 0.4 MG, 1 capsule, Orally, Once a day, Notes to Pharmacist: Prescribed by ED; C ontinue Ibuprofen Tablet, 800 MG, 1 tablet with [...] Other reason not done * Follow Up: A s Scheduled (Reason: OV) * Images: * Sign off status: Completed true * Provider: Bucky Gayle MD Date: 0 12/06/2024 Generated for Mayte bustamante/Robert/Heatheritting on: 10/24/2024 12:12 PM EST History and Physical Notes * HPI (History of Present Illness) Category Sub-Category Detail Notes COVID-19 Screening Questions Have you had any new onset fever, chills, cough, congestion, sore throat, shortness of breath, muscle aches?: No Examination Category Sub-Category Detail Notes General Examination [...] BREASTS: no masses palpable b ilaterally MUSCULOSKELETAL: Discomfort to range of motion of shoulders elbows and hips LYMPH NODES: no enlarged lymph no namita,spleen normal RECTAL EXAM: not examined PSYCH: alert, oriented ORAL CAVITY: normal, unremarkable
--- OUTSIDE RECORDS SUMMARY | 2024-12-07 05:21 | XMS_ITS ---
Author Organization Homar Gayle III, MD Address [address] [place] [address] Care Team Providers Care Concrete Products Machine Operator Name Role Phone Dr. Homar Gayle III Primary Care Provider REASON FOR VISIT told patient to call Social History Sex Assigned At : Social History Observation Description Sex Assigned At Male Encounters Encounter Location Date Provider Diagnosis Homar Gayle III, MD [address] [place] [address] [address] [facility] [place] [address] 12/07/2024 Homar Gayle Plan Of Treatment Next Appt Details Provider Name:Homar Gayle , 10/19/2025 10:00:00 AM, [address] [place] [address] [place], [address], Progress Notes * Ang GALVEZDOB: [birth year] (54 yo M)Acc No.[id number]:12/07/2024 Patient: Austen ANDERSONAng ROSS :1970 A ge:54 Y S ex:Male Address:[address] [place] [address] * true * Date: Generated for Hardiki ng/Faanuradhag/eTransmitting on: 10/24/2024 12:11 PM EST
--- OUTSIDE RECORDS SUMMARY | 2025-04-13 04:30 | XMS_ITS ---
Author Organization Homar Gayle III, MD Address [address] [place] [address] Care Team Providers Care .Net Architect Name Role Phone Dr. Homar Gayle III Primary Care Provider Allergies Allergen (clinical drug ingredient) Drug/Non Drug Allergy documented on EMR Reaction Allergy Type Onset Date Status dexamethasone Dexamethasone Unknown Drug Allergy Active Results Component Value Reference Range Notes Lipid Panel Reviewed date:04/20/2025 07:00:24 PM Interpretation: Performing Lab:[address] [phone] Notes/Report: Triglycerides 140 <150 mg/dL Desirable Triglyceride: less than 150 mg/dL Borderline High Triglyceride 150-199 mg/dL High Triglyceride: 200-499 mg/dL Very High Triglyceride: greater than or equal to 5OO mg/dL Cholesterol 237 <200 mg/dL Desirable Cholesterol: less than 200 mg/dL Borderline High Cholesterol: 200-239 mg/dL High Cholesterol: greater than 239 mg/dL LDL Cholesterol Calculated 142 <100 mg/dL Desirable LDL: less than 100 mg/dL Near Optimal/Above Optimal LDL: 110-129 mg/dL Borderline High LDL: 130-159 mg/dL High LDL: 160-189 mg/dL Very High LDL: greater than or equal to 190 mg/dL HDL Cholesterol 67 >40 mg/dL Desirable HDL: greater than 40 mg/dL Note: This HDL assay may give artificially low results in patients with liver disease. Testosterone, Total Reviewed date:08/03/2025 05:13:44 PM Interpretation: Performing Lab:[facility], [address] [place] [phone] Notes/Report: Testosterone, Total [phone] ng/dL For additional information, please refer to http://education.ARI.com/faq/ [email or web address] (This link is being provided for informational/ educational purposes only.) This test was developed and its analytical performance characteristics have been determined by [facility] [place], [place]. It has not been cleared or approved by the U.S. Food and Drug Administration. This assay has been validated pursuant to the CLIA regulations and is used for clinical purposes. THIS TEST WAS PERFORMED AT: [facility] [address] ARUNA ELI MD,PHD REASON FOR VISIT Arthritis, GERD, Hyperlipidemia, Prostate cancer, Depression, Obesity, Hearing loss Medications Medication SIG (Take, Route, Frequency, Duration) [...] every 6 hrs Prescribed by ED Active Social History Tobacco Use: Social History Observation Description Date Details (start date - stop date) Never Smoker NA - NA Sex Assigned At : Social History Observation Description Sex Assigned At Male Tobacco Control (Standard) Question Answer Notes Tobacco use: Nonsmoker Additional Findings: Tobacco non-user Aggressive nonsmoker Vital Signs Temperature 97.7 degrees Fahrenheit 04/13/20 25 Blood pressure systolic 138 mm Hg 04/13/20 25 Blood pressure diastolic 81 mm Hg 025 Heart Rate 74 /min 04/13/2025 Height 65 in 04/13/2025 Weight 184 lbs 04/13/2025 BMI 30.62 kg/m2 04/13/2025 Encounters Encounter Location Date Provider Diagnosis Homar Gayle III, MD [address] [place] [address] [place] [id number] 04/13/2025 Homar Gayle GERD (gastroesophage al reflux disease) K21.9 ; Carcinoma of prostate C61 ; Obesity (BMI 30.0-34.9) E66.9 ; Neuropathy G62.9 ; Carpal tunnel syndrome G56.00 ; Osteoarthritis cervical spine M47.812 and Mixed hyperlipidemia E78.2 Assessments Encounter Date Diagnosis (ICD Code) Assessment Notes Treat ment Notes Treatment Clinical Notes 04/13/2025 GERD (gastroesophageal reflux disease) (ICD-10 - K21.9) He has occasional reflux, which is well controlled with idci-oxj-coxvdcl medications. He will avoid eating late at night. 04/13/2025 Carcinoma of prostat e (ICD-10 - C61) His PSA remains undetectable. There was no sign on examination of recurrent disease. 04/13/2025 Obesity (BMI 30.0-34.9) (ICD-10 - E66.9) His body stable at 30. We discussed his diet and nutrition. We reviewed his plan to lose weight. 04/13/2025 Neuropathy (ICD-10 - G62.9) He was referred to orthopedics to reevaluate the carpal tunnel situation and consider a neuropathy at the level of the elbow. 04/13/2025 Carpal tunnel syndrome (ICD-10 - G56.00) He continues to have symptoms in both hands. He is scheduled for revisional surgery later in the fall. 04/13/2025 Osteoarthritis cervical spine (ICD-10 - M47.812) He continues to have mild to moderate neck and shoulder pain. 04/13/2025 Mixed hyperlipidemia (ICD-10 - E78.2) He is due for comprehensive bloood work which was ordered. This will include a fasting lipid profile. Plan Of Treatment Medication Medication Name Sig Start Date Stop Date Notes Electrodes 2 x2 /Reusable - as directed apply to skin use with Tens machine 10/23/2020 Tamsulosin HCl 0.4 MG 1 capsule Orally O nce a day Prescribed by ED Ibuprofen 800 MG 1 tablet with food o r milk as needed Orally every 8 hrs 08/23/2023 Ondansetron 4 MG 1 tablet on the tong ue and allow to dissolve Orally Once a day Prescribed by ED oxyCODONE HCl 5 MG 1 tablet as needed Orally every 6 hrs Prescribed by ED Pending Test Test Name Order Date PSA, TOTAL 04/13/2025 Next Appt Details Follow Up: 2 Weeks, Reason: Telehealth Provider Name:Homar Gayle , 10/19/2025 10:00:00 AM, [address] [place] [address] [address], [place], [address], Progress Notes * Ang GALVEZDOB: [birth year] (55 yo M)Acc No.[id number]:04/13/2025 Progress Notes Patient: Ang CARRILLO Provider: Bucky Gayle MD :1970 A ge:55 Y S ex:Male Date:04/13/2025 Address:[address] [place], [place] [id number] Subjective: * Chief Complaints: * A rthritisGERDHyperlipidemiaProstate cancerDepressionObesityHearing loss * HPI: C OVID-19 Screening: Surendra barrera returns for surveillance of his prostate cancer and management of multiple medical issues.? He has had no kidney stones since his last visit. His hearing loss is unchanged. Carpal tunnel syndrome has been addressed and does not bother him any longer. He reports nocturia once a night at most. He arthritis in his neck is unchanged. His esophageal reflux symptoms are controlled with medication. His 46-year-old cousin who lives in [facility] recently had a myocardial infarction. He is quite concerned about his cardiac risk factors. A fasting lipid profile and comprehensive blood work have been ordered. We reviewed his cardiac risk factors in depth today. Questions H ave you had any new onset fever, chills, cough, congestion, sore throat, shortness of breath, muscle aches? N o * ROS: G eneral/Constitutional: pain H ands and wrists elbows and shoulders and neck. C hills d enies. F atigue a dmits. F [...] Muscle aches d enies. P ainful joints M ultiple arthritic joints. S ciatica d enies. W eakness d [...] brother in infancy. His mother lives in [place]. He is not aware of any family history of substance use disorder or addiction or mental illness. 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 He was born in [facility]. He enjoys kick boxing and [...] Objective: * Vitals: H t: 65, Wt: 184, BMI:30.62, BP: 138/81, HR: 74, Temp: 97.7, Wt-k.46. * Examination: G eneral Examination: GENERAL APPEARANCE: p leasant, well nourished, well developed, in no acute distress, calm and relaxed, obese, man. HEAD: a traumatic, normocephalic. EYES: e karen, perrla, anicteric, conjugate. EARS: n ormal. NOSE: s eptum intact. ORAL CAVITY: n ormal, unremarkable. NECK/THYROID: n o jugular venous distention, no carotid bruit, thyroid normal, Decreased range of motion. LYMPH NODES: n o enlarged lymph nodes,spleen [...] e xtremities unremarkable, no clubbing, cyanosis or edemaMild decreased range of motion, lumbar spine intact, other joints have normal range of motion today. PERIPHERAL PULSES: n ormal. NEUROLOGIC: a lert and oriented, cranial nerves 2-12 grossly intact, deep tendon reflexes 2+ symmetrical, motor strength normal upper and lower extremities, sensory exam intact. PSYCH: a lert, oriented, Depression is minimal. ? Assessment: * Assessment: 1. C arcinoma of prostate - C61 (Primary) N otes :His PSA remains undetectable. There was no sign on examination of recurrent disease. 2 . G ERD (gastroesophageal reflux disease) - K21.9 N otes :He has occasional reflux, which is well controlled with vnfq-fuf-nzbtjra medications. He will avoid eating late at night. 3 . O besity (BMI 30.0-34.9) - E66.9 N otes :His body stable at 30. We discussed his diet and nutrition. We reviewed his plan to lose weight. 4 . N europathy - G62.9 N otes :He was referred to orthopedics to reevaluate the carpal tunnel situation and consider a neuropathy at the level of the elbow. 5 . C arpal tunnel syndrome - G56.00 N otes :He continues to have symptoms in both hands. He is scheduled for revisional surgery later in the fall. 6 . O steoarthritis cervical spine - M47.812 N otes :He continues to have mild to moderate neck and shoulder pain. 7 . M ixed hyperlipidemia - E78.2 N otes :He is due for comprehensive bloood work which was ordered. This will include a fasting lipid profile. Plan: * Treatment: 2. O besity (BMI 30.0-34.9) L AB: PSA, TOTAL L AB: Lipid Panel L AB: Testosterone, Total 3. O thers Continue Ondansetron Tablet Disintegrating, 4 [...] Other reason not done * Follow Up: 2 Weeks (Reason: Telehealth) * Images: * Sign off status: Completed true * Provider: Bucky Gayle MD Date: 0 04/13/2025 Generated for Mayte bustamante/Robert/Deshaun on: 10/24/2024 12:11 PM EST History and Physical Notes * [...] venous di stention, no carotid bruit, thyroid normal, Decreased range of motion HEART: no clicks, gallops, murmurs, or rubs, [...] extremities unremark able, no clubbing, cyanosis or edemaMild decreased range of motion, lumbar spine intact, other joints have normal range of motion today LYMPH NODES: no enlarged lymph no namita,spleen normal RECTAL EXAM: not examined PSYCH: alert, oriented, Dep ression is minimal ORAL CAVITY: normal, unremarkable
--- OUTSIDE RECORDS SUMMARY | 2025-04-24 10:00 | XMS_ITS ---
Author Organization Homar Gayle III, MD Address [address] [place] [address] Care Team Providers Care Instructional Material Director Name Role Phone Dr. Homar Gayle III Primary Care Provider [phone] Allergies Allergen (clinical drug ingredient) Drug/Non Drug Allergy documented on EMR Reaction Allergy Type Onset Date Status dexamethasone Dexamethasone Unknown Drug Allergy Active REASON FOR VISIT Ureterolithiasis, History of prostate cancer, Obesity, GERD, Hyperlipidemia, Depression, Hearing loss Medications Medication SIG (Take, Route, Frequency, Duration) Notes Start Date End Date Status Tamsulosin HCl 0.4 MG 1 capsule Orally Once a day Prescribed by ED Active oxyCODONE HCl 5 MG 1 tablet as needed Orally every 6 hrs Prescribed by ED Active Ondansetron 4 MG 1 tablet on the tongue and allow to dissolve Orally Once a day Prescribed by ED Active Electrodes 2 x2 /Reusable - as [...] Findings: Tobacco non-user Aggressive nonsmoker Vital Signs Height 65 in 04/24/2025 Weight 184 lbs 04/24/2025 BMI 30.62 kg/m2 04/24/2025 Encounters Encounter Location Date Provider Diagnosis Homar Gayle III, MD [address] [place] [address] [place] [address] 04/24/2025 Homar Gayle GERD (gastroesophage al reflux disease) K21.9 ; Carcinoma of prostate C61 ; Osteoarthritis cervical spine M47.812 ; Mixed hyperlipidemia E78.2 ; Hearing loss, unspecified hearing loss type, unspecified laterality H91.90 ; Reactive depression F32.9 and Ureterolithiasis N20.1 Assessments Encounter Date Diagnosis (ICD Code) Assessment Notes Treat ment Notes Treatment Clinical Notes 04/24/2025 GERD (gastroesophage al reflux disease) (ICD-10 - K21.9) He has occasional reflux, which is well controlled with zaeo-mdp-npljugn medications. He will avoid eating late at night. 04/24/2025 Carcinoma of prostat e (ICD-10 - C61) His PSA remains undetectable. There was no sign on examination of recurrent disease. 04/24/2025 Osteoarthritis cervical spine (ICD-10 - M47.812) He continues to have mild to moderate neck and shoulder pain. 04/24/2025 Mixed hyperlipidemia (ICD-10 - E78.2) He is due for comprehensive bloood work which was ordered. This will include a fasting lipid profile. 04/24/2025 Hearing loss, unspecified hearing loss type, unspecified laterality (ICD-10 - H91.90) His hearing will be monitored. He has had no change in his hearing, which is slightly diminished. He says he does not need amplification at this time. 04/24/2025 Reactive depression (ICD-10 - F32.9) His psychotherapy continues. The therapist has referred him to a prescriber. 04/24/2025 Ureterolithiasis (ICD-10 - N20.1) He is currently experiencing renal colic on the right. He has an adequate supply of pain medication. He says it is effective. He has been advised about fluid intake and stone preservation. He was instructed to call me at once if the stone passes. The urology Department is aware of him from the emergency room. Plan Of Treatment Medication Medication Name Sig Start Date Stop Date Notes Tamsulosin HCl 0.4 MG 1 capsule Orally O nce a day Prescribed by ED oxyCODONE HCl 5 MG 1 tablet as needed Orally every 6 hrs Prescribed by ED Ondansetron 4 MG 1 tablet on the tong ue and allow to dissolve Orally Once a day Prescribed by ED Electrodes 2 x2 /Reusable - as directed apply to skin use with Tens machine 10/23/2020 Ibuprofen 800 MG 1 tablet with food o r milk as needed Orally every 8 hrs 08/23/2023 Next Appt Details Follow Up: as scheduled, Araceli son: ov Provider Name:Homar Gayle , 10/19/2025 10:00:00 AM, [address] [place] [address] DR, [address], [place], [address], Progress Notes * Her LEONORnaveenDOB: [birth year] (55 yo M)Acc No.[id number]:04/24/2025 Patient: Amarilys CARRILLOto Provider: Bucky Gayle MD :1970 A ge:55 Y S ex:Male Date:04/24/2025 Address:[address] [place], [place] [id number] Subjective: * Chief Complaints: * U reterolithiasisHistory of prostate cancerObesityGERDHyperlipidemiaDepressionHearing loss * HPI: * : He returns to the office for medical management. His PSA has been not detectable. He is up-to-date with urology. His arthritis is controlled and a moderate, new since mostly in the upper extremities and fingers. His depression is in remission. His reflux symptoms are controlled. He is trying to lose weight and consume a healthy diet. No changes in his regimen were necessary today. Telehealth L ocation of provider rendering services: { ...} [address] [place] [address] Drive [address] [facility] [address] L ocation of patient: kassandra ddress listed in demographics for today's visit P atient identification confirmed using: N sarah, T elehealth method: T elephone only. Patient not visible to care provider. C onsent: P atient verbally consented to treatment, Patient verbally consented to billing insurance company, Patient informed of any privacy concerns related to method of visit T otal time spent with patient (mins) 1 5 * ROS: G eneral/Constitutional: pain F ingers and hands. C hills d enies. F atigue a dmits. F ever d enies. E NT: Decreased hearing i n both ears. R espiratory: Cough d enies. C ardiovascular: Chest pain with exertion d enies. D yspnea on exertion?denies. S hortness of breath d enies. G astrointestinal: Constipation o ccasional. D ecreased appetite d enies. D iarrhea d enies. H eartburn d [...] brother in infancy. His mother lives in [place]. He is not aware of any family history of substance use disorder or addiction or mental illness. 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 He was born in [facility]. He enjoys kick boxing and art. [...] day , Notes to Pharmacist: Prescribed by Danish oxyCODONE HCl 5 MG Tablet 1 tablet [...] Vitals: H t: 65, Wt: 184, BMI:30.62, Ht-cm: 165.1, Wt-k.46. * P ast Orders: Lab:Prostate Specific Antige n * Collection Date 04/19/2025 10/12/2024 08/09/2024 Collection Time 09:45 AM 07:35 AM 09:43 AM Order Date 04/19/2025 10/12/2024 08/09/2024 Prostate Specific Antigen < 0.10 (Ref Range: <0.05-4.0 ng/mL) < 0.10 (Ref Range: <0.05-4.0 ng/mL) < 0.10 (Ref Range: <0.05-4.0 ng/mL) Assessment: * Assessment: 1. C arcinoma of prostate - C61 (Primary) N otes :His PSA remains undetectable. There was no sign on examination of recurrent disease. 2 . G ERD (gastroesophageal reflux disease) - K21.9 N otes :He has occasional reflux, which is well controlled with vkxw-yeq-gdgigkg medications. He will avoid eating late at night. 3 . O steoarthritis cervical spine - M47.812 N otes :He continues to have mild to moderate neck and shoulder pain. 4 . M ixed hyperlipidemia - E78.2 N otes :He is due for comprehensive bloood work which was ordered. This will include a fasting lipid profile. 5 . H earing loss, unspecified hearing loss type, unspecified laterality - H91.90 N otes :His hearing will be monitored. He has had no change in his hearing, which is slightly diminished. He says he does not need amplification at this time. 6 . R eactive depression - F32.9 N otes :His psychotherapy continues. The therapist has referred him to a prescriber. 7 . U reterolithiasis - N20.1 N otes :He is currently experiencing renal colic on the right. He has an adequate supply of pain medication. He says it is effective. He has been advised about fluid intake and stone preservation. He was instructed to call me at once if the stone passes. The urology Department is aware of him from the emergency room. Plan: * Treatment: 2. O thers Continue [...] every 8 hrs. ? * Procedure Codes: 9 8012 SYNCH AUDIO-ONLY EST SF 10 * Preventive Medicine: Counseling: C are goal [...] * Follow Up: a s scheduled (Reason: ov) * Images: * Sign off status: Completed true * Provider: Bucky Gayle MD Date: 0 04/24/2025 Generated for Mayte bustamante/Robert/Deshaun on: 1 10/24/2024 12:12 PM EST History and Physical Notes * HPI (History of Present Illness) Category Sub-Category Detail Notes Telehealth Location of [facility] rendering services:: {...} [address] [place] [address] [place], [place] [id number] Location of patient:: address listed in demographics for today's visit Patient identification confirmed using:: Name, Telehealth method:: Telephone only. Caitie ent not visible to care provider. Consent:: Patient verbally c onsented to treatment, Patient verbally consented to billing insurance company, Patient informed of any privacy concerns related to method of visit Total time spent with patient (mins): 15
--- OUTSIDE RECORDS SUMMARY | 2025-08-22 09:30 | XMS_ITS | Encounter Summary ---
Author Organization [facility] Address [address] [place] [address] Care Team Providers Care Pasting Machine Operator Name Role Phone Homar Gayle Primary Care Provider [phone] Reason for Visit * Insurance Referral (Routine) - Authorized Specialty Diagnoses / Procedures Referred By Contac t Referred To Contact Urology Diagnoses *1 yr f/u - PSA Procedures FOLLOW UP Homar Gayle [address] [facility] [address] [place] [phone] Phone: tel: fax: Ernesto Limon MD [address] [place] [phone] Phone: tel: fax: Referral ID Status Reason Start Date Expiration Date V isits Requested Visits Authorized [id number] Authorized 05/18/2025 05/17/2026 6 6 Encounter Details Date Type Department Care Team (Late st Contact Info) Description 08/22/2025 9:30 AM EST Follow-Up [facility] [address] [place] [id number] Health Professor: Ernesto Soliman MD [address] [place] [address] [phone] Soledad Mendoza PA [address] [place] [address] [phone] Prostate cancer (Primary Dx) Social History Tobacco Use Types Packs/Day Years Used Date Smoking Tobacco: Never Smokeless Tobacco: Never Tobacco Cessation:Counseling Given: Not Answered Alcohol Use Standard Drinks/Week Comments Not Currently 0 (1 standard drink = 0.6 oz pur e alcohol) Sex and Gender Information Value Date Recorded Sex Assigned at Male 01/07/2022 11:41 AM EDT Legal Sex Male 11:06 AM EDT Gender Identity Male 01/07/2022 11:41 AM EDT Sexual Orientation Straight 01/07/2022 11 :41 AM EDT documented as of this encounter Last Filed Vital Signs Vital Sign Reading Time Taken Comments Blood Pressure 173/96 08/22/2025 9:31 AM EST Pulse 81 08/22/2025 9:31 AM EST Temperature - - Respiratory Rate - - Oxygen Saturation - - Inhaled Oxygen Concentration - - Weight - - Height - - Body Mass Index - - documented in this encounter Patient Instructions * Attachments The following attachments cannot be sent through Care Everywhere. * Kidney stone diet (Palauan) documented in this encounter Progress Notes * Ernesto Limon MD - 08/22/2025 9:30 AM EST RETURN APPOINTMENT s/p RALP+PLND RALP+PLND (date: 08/25/2019) Pathology: pT2N0 GS 3+3=6 with (-)SM Pre-op Data: PSA: 7.4ng/ml Biopsy: GS 3+3 LAWANDA: cT1c I met today with Ang Mcguire Jr in the [facility]. He underwent an RALP+PLND on 08/25/2019. Pathology showed pT2N0 GS 3+3=6 with (-)SM. (1) Cancer Control Post-op PSA values include: <0.05ng/ml (09/2019) 0.01ng/ml (07/2020) <0.05ng/ml (01/2021) <0.05ng/ml (07/2021) <0.10ng/ml (08/2022) <0.10ng/ml (07/2023) <0.01ng/ml (08/2024) <0.10ng/ml (07/2025) - Done through PCP in [place] Nephrolithiasis: He reports having an episode of renal colic about 2 months ago. He went to [facility] ED and believes they did a CT scan which was how they diagnosed him with a kidney stone. Unfortunately the records from this ED visit are not available in his chart. He states that the ED discharged him on MET, and he urinated the stone out a few weeks later and saw it in the strainer. He did not save the stone unfortunately. He has a history of kidney stones. Has previously had stone treatment with ESWL. A RBUS was ordered by his PCP and was completed on 07/31/2025. Records are unavailable in the patient's chart, but the report as shown on his patient portal is as follows: RBUS (07/31/2025): FINDINGS: Right kidney: The right kidney measures 10.6 x 3.9 x 4.9 cm. Renal parenchymal echotexture and thickness are normal. There are no masses. There is no hydronephrosis or renal calculi. Left kidney: The left kidney measures 10/4 x 4.4 x 4.7 cm. Renal parenchymal echotexture and thickness are normal. There is a 7 x 5 x 7 mm cyst at the lower pole. There is no hydronephrosis or renal calculi. IMPRESSION: 7 x 5 x 7 mm left renal cyst. Otherwise unremarkable renal ultrasound Urinary symptoms: Denies dysuria or gross hematuria today Sexual function: Continuing with ED. Stopped using ICI and PO meds due to frustration with the preparation involved and need to plan sexual activity. He hasn't been using the intraurethral gel, but has it at home. Using the YANELY with semi-decent effect. Frustrated with the prep to obtain an erection. He reports he can obtain an erection but it is typically not hard enough for penetration. Family history of prostate cancer: None that he is aware of Assessment and Plan: Mr. Ang Mcguire is a 55 year old male being followed in the [facility] clinic for prostate cancer. He is s/p RALP + PLND on 08/25/2019. 1) Prostate cancer s/p RALP + PLND: PSA stable at <0.10ng/ml. We discussed the natural history of prostate cancer. We discussed the entire spectrum of prostate cancer. I explained how Risk Stratification using PSA serology, Ketan grade and tumor volume on biopsy, and clinical stage is used to assess prognosis and guide optimal management decision-making strategies. We discussed his specific situation using his PSA values, biopsy results, and findings on exam. He is s/p RALP + PLND and his post-operative PSAs have been stable. We will obtain a repeat PSA in 1 year. 2) Nephrolithiasis: He had an episode of renal colic around 2 months ago, prompting an ED visit to [facility]. Hewas discharged on MET and fortunately urinated out the stone independently into the kidney stone strainer. He is currently without flank pain, abdominal pain, or urinary symptoms. His PCP ordered a follow-up RBUS which he had done on 07/31/2025 which was negative for stones or hydronephrosis but did note a small 7 mm left renal cyst. We reviewed his RBUS. He will follow- up with his PCP regarding whether he would like to continue with annual ultrasounds to monitor his renal cyst. We briefly discussed the kidney stone diet, including staying hydrated with 2-3L of water daily, limiting animal pro tein intake, consuming less than 2,000 mg of sodium daily, and limiting foods high in oxalates. We briefly discussed how the majority of kidney stones are made of calcium. - Follow-up RBUS with PCP and whether future ultrasounds will be warranted in the future - Kidney stone diet reviewed - Patient educated on renal colic symptoms PLAN: RTC 12 months with PSA prior ATTESTATION: I spent a total of 20 minutes in consultation on prostate cancer and ED on the date ofount, which included: preparing to see the patient (e.g., review of imaging and test results),documenting clinical information in the health record, obtaining and/or reviewing a separately obtained history, ordering medications, tests, and/or procedures, communicating results to the patient/family/caregiver, counseling and educating the patient, independently interpreting results (not separately reported), referring and communicating with another healthcare professional, when not separately reported, and care coordination not separately reported. documented in this encounter Plan of Treatment Upcoming Encounters Date Type Department Care Team (Late st Contact Info) Description 08/21/2026 9:00 AM EST Follow-Up [facility] [address] [place] [id number] Health Professor: Ernesto Soliman MD [address] [place] [phone] Scheduled Orders Name Type Priority Associated Diagnoses Orde r Schedule PSA Lab Routine Prostate cancer Expected: 08/12/2026, Expires: documented as of this encounter Visit Diagnoses Diagnosis Prostate cancer- Primary Malignant neoplasm of prostate documented in this encounter Care Teams Pasting Machine Operator Relationship Specialty Start Date End Date Homar Gayle [address] [place] [id number] PCP - General Hematology 06/14/19 documented as of this encounter
--- NOTE | 2025-08-24 10:32 | A.OFFVIS_ITS ---
Intake Visit Reasons: 1Y Testo/PSA/US Intake Note: Patient is Present for Follow Up Urology Medication:tadalafil Antibiotic Allergies:none Blood Thinners:none Allergies diclofenac Allergy (Unknown, Verified 08/24/25 10:43) Itching HPI Comments Details: Ang is a pleasant male. He is a patient Dr. Gayle. He is seen for the following urologic conditions - prostate cancer - erectile dysfunction - nephrolithiasis Six-month follow-up imaging nephrolithiasis No stones, small cyst PSA remains well controlled Response to TriMix maintained - 0.35cc per episode Good responses as needed Discussed vacuum pump - ultrasonic information provided PSA 08/08 <0.05, 02/07 <0.1, 08/09 <0.1, 02/08 <0.1, 08/10 <0.1, 08/11<0.1 Continue yearly surveillance Prostate cancer: Hamilton 6. Robotic prostatectomy 08/2019 PSA remains undetectable Effective urinary control Prostate cancer was diagnosed 05/23/19 Dr Sherwood. Diagnosis was reached by needle biopsy, for elevated PSA, PSA at diagnosis 7.6 7%, size at TRUS 30gm. The Hamilton grade 3+3 - 6 on 12 cores Bilateral - all Gl 3+3 LBL 5%, LMM 70%, DEMIAN 60%, HAYDEN 80%, RBM 5%, RMM 5% Total 225/1200 = 19%. TNM Classification of Malignant Tumours (TNM) T1c. The D'Mariam (NCCN) risk category is Low Risk (PSA< 10, Gl < 7, T1c) Group 1. Initial therapy included Primary treatment 09/05 , Prostatectomy (RRP/Robotic) - Dr Braxton Muñoz. Recent labs included 10/05 < 0.05 03/06 < 0.05, 06/06 < 0.1, 09/06- < 0.05, 01/05 <0.1, 05/07 <0.1, 08/07 <0.1, 02/06 <0.1 Recent imaging included 07/06 MRI - no clinically significant lesions seen Erectile dysfunction Secondary to prostatectomy Failed to regain function surgery. Trialed on medications and pump Good response to injectable TriMix - 0.35cc Nephrolithiasis Imaging - 12/12 CT scan 6 mm distal left ureteric stone [facility] Medical History (Updated 01/19/25 @ 09:49 by Doug Sherwood MD) Neuropathy Nephrolithiasis Anxiety Gastroesophageal reflux disease without esophagitis Prostate cancer Elevated PSA Bilateral hand numbness Carpal tunnel syndrome Surgical History H/O prostatectomy H/O lithotripsy History of prostate biopsy Social History Patient Tobacco Use Status: Never used Tobacco Review of Systems Const Denies chills and Denies fever(s) Card Reports no additional complaints and Denies syncope Resp Denies cough GI Denies abdominal pain and Denies heartburn Reports as per HPI and Denies change in libido Neuro Denies syncope Psych Denies change in libido Endo Denies change in libido Physical Exam Const General: cooperative, healthy appearing, comfortable and no acute distress Orientation/consciousness: patient oriented x3 HEENT Face and sinus: Yes normal facial exam Mouth: moist mucous membranes Neck Neck: Yes normal visual inspection, Yes full ROM and Yes trachea midline Chest Chest palpation & inspection: normal inspection of the chest Resp Effort & Inspection: normal respiratory effort, able to speak in complete sentences and no respiratory distress GI Inspection: Yes normal to inspection Back/Spine/Pelvis Cervical Spine: normal cervical lordosis Thoracic/Lumbar Spine: thoracic and lumbar spine normal to inspection Skin General skin exam: no rashes or lesions noted Neuro General: patient oriented x3, gait normal, tone normal and moves all extremities Extrem General: Yes normal to inspection and Yes capillary refill normal Assessment & Plan Assessment & Plan (1) Prostate cancer: Comment: Low-grade low volume disease late 2019 Code(s): C61 - Malignant neoplasm of prostate Category: Medical (2) Nephrolithiasis: Code(s): N20.0 - Calculus of kidney Category: Medical (3) Erectile dysfunction due to arterial insufficiency: Code(s): N52.01 - Erectile dysfunction due to arterial insufficiency Category: Medical Plan Twelve month follow-up renal ultrasound in PSA Orders: Orders US renal BI 12 Months N20.0 - Calculus of kidney Prostate Specific Antigen 12 Months C61 - Malignant neoplasm of prostate Patient Instructions: This note is constructed using voice recognition software. While every effort has been made to ensure accuracy patch press operator errors may have been included. Imaging studies, laboratory and physical exam results were discussed and reviewed in detail. No major barriers to patient understanding were identified. An opportunity to ask questions regarding the treatment plan was provided. All questions were answered. The patient expressed understanding and agreement with the above treatment plan. The patient is aware they should contact our office by phone for worsening of their current condition or the appearance of new urologic symptoms. Compliance is encouraged with any medications and followup testing that is ordered. It is a privilege to participate in the urologic care of your patient. If you have any questions or concerns regarding treatment for the above conditions, or other urologic issues, please do not hesitate to contact me. The office telepho ne contact is [phone]. Sincerely, Dr Doug Sherwood MD, [facility] - Urology Compassionate Specialist Care for the Genitourinary System Coding Level of Care Code Est Pt Level 4 (69407) Complex EM visit Add On G2211 Diagnoses Prostate cancer C61 Nephrolithiasis N20.0 Erectile dysfunction due to arterial insufficiency N52.01
--- OUTSIDE RECORDS SUMMARY | 2025-08-24 12:11 | XMS_ITS | Patient Health Record ---
Author Organization [facility] Address [address] [place] [address] Care Team Providers Care Golf Player Assistant Name Role Phone Homar Gayle MD Primary [...] Status Risk Notes Problem Colon cancer screening (768164951) Colon cancer screening (Z12.11) Active confirmed Problem varnishing unit operator current use of non-steroidal anti-inflammat ory drug ([id number] 03) varnishing unit operator (current) use of non-steroidal anti-inflammat ories (NSAID) (Z79.1) Active confirmed Plan Of Treatment Future Test Test Name Order Date COLONOSCOPY 01/06/2023 Insurance Providers Payer Name Payer Address Payer Phone Subscriber Number Group Number Insured Name Patient Relationship to Insured Coverage Start Date Coverage End Date [facility] [address] [place] [phone] [id number] ENMANUEL GALVEZ Self - patient is the insured Medical (General) History Medical History History ICD Code Prostate cancer Tendinitis/carpal tunnel syndrome Gastroesophageal reflux disease Anxiety Nephrolithiasis Neuropathy Surgical History Surgery Date(Month/Year) Prostatectomy 2019 kidney stone, lithotripsy
--- OUTSIDE RECORDS SUMMARY | 2025-08-24 12:11 | XMS_ITS | Clinical Summary ---
Author Organization [facility] Address [address] [place] [address] Care Team Providers Care Lap Cutter Name Role Phone Homar Gayle Primary Care Provider [phone] Allergies Active Allergy Reactions Criticality Noted Date [...] day as needed for constipation. 9 Active senna (SENOKOT) 8.6 mg tablet Take 2 tablets (17.2 mg total) by mouth daily as needed (constipation not relieved by colace). 9 Active oxyCODONE IR (ROXICODONE) 5 mg tablet Take 1 tablet (5 mg total) by mouth every 6 hours as needed for breakthrough pain. 3 tablet 9 Active levoFLOXacin (LEVAQUIN) 500 mg tablet Take 500 mg by mouth daily. Active ibuprofen (MOTRIN) 800 mg tablet Take 800 mg by mouth 3 times a day. 0 Active Active Problems Problem Noted Date Diagnosed Date Prostate cancer 08/25/2019 Encounters Date Type Department Care Team Description 08/22/2025 9:30 AM EST Follow-Up [facility] [address] [place] [phone] Respiratory Physician: Ernesto Soliman MD Dairiki, Sarah L., PA Prostate cancer (Primary Dx) 08/22/2025 [employer] Message [facility] [address] [address] Respiratory Physician: Soledad Solis PA [employer] 08/03/2025 [employer] Message [facility] [address] [address] Respiratory Physician: Clemencia Carrillo LPN PSA Lab Work from Last 3 Months Immunizations Immunization Administration Dates Next Due Influenza, [...] Pulse 81 08/22/2025 9:31 AM EST Temperature 36.7 C (98.1 F) 09/01/2019 [...] Info) Description 08/21/2026 9:00 AM EST Follow-Up [facility] [address] [place] [address] Respiratory Physician: Ernesto Soliman MD [address] [place] [phone] Health Maintenance Due Date Last Done Comments [...] exists Influenza Vaccine (#1) 2025 08/05/2022, 2018 Insurance [employer] Advance Directives Documents on File Type Date Recorded Patient Driver License Agent Expl jag Health Care Proxy 08/18/2019 1:59 PM * Full Code (Latest Code Status on File) Date Activated Date Inactivated Comments 08/25/2019 5:36 AM 09/01/2019 9:53 PM Healthcare Agents on File Name Relationship Healthcare Agent Relationship Communication [place] Significant Other Health Care Agent Care Teams Lap Cutter Relationship Specialty Start Date End Date Homar Gayle [address] [place] [phone] PCP - General Hematology 06/14/19
--- OUTSIDE RECORDS SUMMARY | 2025-08-24 12:11 | XMS_ITS | Patient Health Record ---
Author Organization Homar Gayle III, MD Address [address] [place] [address] Care Team Providers Care Director Of Student Affairs Name Role Phone Dr. Homar Gayle III Primary Care Provider [phone] Allergies Allergen (clinical drug ingredient) Drug/Non Drug [...] 0.2 - 1.3 BLD Negative Negative - Lipid Panel Reviewed date:04/20/2025 07:00:24 PM Interpretation: Performing Lab:[facility], [address] [place] [phone] Notes/Report: Triglycerides 140 <150 mg/dL Desirable Triglyceride: [...] Total Reviewed date:08/03/2025 05:13:44 PM Interpretation: Performing Lab:[facility], [address] [place] [phone] Notes/Report: Testosterone, Total 039 258-2547 ng/dL For additional information, please refer to http://education.[employer]/fa q/ TotalTestosteroneLCM JEHRVC041 (This link is being provided for informational/ educational purposes only.) This test was developed and its analytical performance characteristics have been determined by [employer] [place], [place]. It has not been cleared or approved by the U.S. Food and Drug Administration. This assay has been validated pursuant to the CLIA regulations and is used for clinical purposes. THIS TEST WAS PERFORMED AT: [facility]/[address] ARUNA ELI MD,PHD Complete Blood Count Auto Di ff Reviewed date:10/12/2024 06:22:19 PM Interpretation: Performing Lab:[facility], [address] [place] [phone] Notes/Report: White Blood Count 6.7 4.8-10.8 X10*3/uL [...] NRBC Abs Auto 0.000 0.0-0.012 X10*3/uL Comprehensive [place]. Panel Fa st Reviewed date:10/12/2024 06:22:19 PM Interpretation: Performing Lab:[address] [address] Notes/Report: Sodium 140 135-145 mmol/L Potassium 3.9 [...] Panel Reviewed date:10/12/2024 06:22:19 PM Interpretation: Performing Lab:[address] [address] Notes/Report: Triglycerides 237 <150 mg/dL Desirable Triglyceride: [...] Antigen Reviewed date:10/12/2024 06:22:19 PM Interpretation: Performing Lab:[address] [address] Notes/Report: Prostate Specific Antigen < 0.10 <0.05-4.0 ng/mL PSA methodology: Reid Alinity i Chemiluminescent Microparticle Immunoassay (CMIA) Complete Blood Count Auto Di ff Reviewed date:12/10/2024 09:08:10 AM Interpretation: Performing Lab:[facility], [address] [place] [phone] Notes/Report: White Blood Count 9.0 4.8-10.8 X10*3/uL [...] Panel Reviewed date:12/10/2024 09:08:10 AM Interpretation: Performing Lab:[address] [address] Notes/Report: Bilirubin Total 0.8 0.0-1.0 mg/dL Bilirubin Direct 0.2 0.0-0.5 mg/dL Aspartate Amino Transferase 27 5-37 U/L Alanine Aminotransferase 26 0-40 U/L Total Protein 7.8 6.5-8.0 g/dL Albumin Level 4.5 3.5-5.0 g/dL Alkaline Phosphatase 67 39-117 U/L Basic Metabolic Panel Reviewed date:12/10/2024 09:08:10 AM Interpretation: Performing Lab:[address] [address] Notes/Report: Sodium 140 135-145 mmol/L Potassium 3.9 [...] Magnesium Reviewed date:12/10/2024 09:08:10 AM Interpretation: Performing Lab:[facility], [address] [place] [phone] Notes/Report: Magnesium 1.8 1.6-2.6 mg/dL Lipase Reviewed date:12/10/2024 09:08:10 AM Interpretation: Performing Lab:[address] [address] Notes/Report: Lipase 20 8-78 U/L UA ClnCatch+Micro w/rflx Cul t Reviewed date:12/10/2024 09:08:10 AM Interpretation: Performing Lab:[facility], [address] [place] [phone] Notes/Report: Urine, Clean Catch Color Urine Dark Yellow Appearance Urine Clear PH 7.5 5.0-9.0 Glucose Urine UA Negative Negative mg/dL Urine Blood Large (3+) Negative Specific [place] - Urine 1.025 1.005-1.025 Urine Protein 30 [...] date:12/10/2024 09:08:10 AM Interpretation: Performing Lab: Notes/Report: [address] [address] [address] Scan Report Signed Patient: Ang Mcguire MR#: [id number] 2001 : 1970 Acct:[id number] Age/Sex: 54 / M ADM Date: 12/03/24 Loc: .ED Attending Dr: Ordering Physician: Chayito Mckeon Date of Service: 12/03/24 Procedure(s): CT abdomen pelvis wo IV con Accession Number(s): [id number] cc: Homar Gayle MD; Chayito Mckeon Report Number: [id number]: Total DLP = 559.00 mGy-cm CLINICAL HISTORY: R flank pain rad RLQ R testicle CT abdomen and pelvis without contrast Comparison: CT/REG/[place]/SR - ABD PELV W IV CON ONLY [id number] - 09/09/19 11:02 EST Findings: No consolidation [...] 12/03/24 1343 DD/ 1342 TD/TT: 12/03/24 1342 Ramp Flight Attendant: [place] [address] CT Scan Report Signed Patient: Ang Mcguire MR#: [id number] 2001 : 1970 Acct:[id number] Age/Sex: 54 / M ADM Date: 12/03/24 Loc: HO.ED Attending Dr: Ordering Physician: Chayito Mckeon Date of Service: 12/03/24 Procedure(s): CT abdomen pelvis wo IV con Accession Number(s): [id number] cc: Homar Gayle MD; Chayito Mckeon Report Number: [id number]: Total DLP = 559.00 mGy-cm CLINICAL HISTORY: R flank pain rad RLQ R testicle CT abdomen and pelvi s without contrast Comparison: CT/REG/[place]/SR - ABD PELV W IV CON ONLY [id number] - 09/09/19 11:02 EST Findings: No consolidation [...] 12/03/24 1343 DD/ 1342 TD/TT: 12/03/24 1342 Ramp Flight Attendant: Prostate Specific Antigen Reviewed date:04/20/2025 07:00:24 PM Interpretation: Performing Lab:[facility], [address] [place] [phone] Notes/Report: Prostate Specific Antigen < 0.10 <0.05-4.0 ng/mL PSA methodology: Reid Alinity i Chemiluminescent Microparticle Immunoassay (CMIA) Prostate Specific Antigen Reviewed date:08/03/2025 05:13:44 PM Interpretation: Performing Lab:[facility], [address] [place] [phone] Notes/Report: Prostate Specific Antigen < 0.10 <0.05-4.0 ng/mL PSA methodology: Reid Alinity i Chemiluminescent Microparticle Immunoassay (CMIA) US renal BI Reviewed date:08/03/2025 05:13:44 PM Interpretation: Performing Lab: Notes/Report: [address] [address] Ultrasound Report Signed Patient: Ang Mcguire MR#: [id number] 2001 : 1970 Acct:[id number] Age/Sex: 55 / M ADM Date: 07/31/25 Loc: HO.US Attending Dr: Doug Sherwood MD Ordering Physician: Doug Sherwood MD Date of Service: 07/31/25 Procedure(s): US renal BI Accession Number(s): [id number] cc: Doug Sherwood MD; Homar Gayle MD Reason for Exam: N20.0 - Calculus of kidney EXAMINATION: US KIDNEY BILATERAL HISTORY: N20.0 - Calculus of kidney TECHNIQUE: Real-time grayscale ultrasound imaging of the kidneys was performed and images were reviewed. COMPARISON: Comparison is made with the prior examination dated 07/12/2018. Correlation is also made with an unenhanced CT of the abdomen dated 12/03/2024. FINDINGS: Right kidney: The right kidney measures 10.6 x 3.9 x 4.9 cm. Renal parenchymal echotexture and thickness are normal. There are no masses. There is no hydronephrosis or renal calculi. Left Kidney: The left kidney measures 10.4 x 4.4 x 4.7 cm. Renal parenchymal echotexture and thickness are normal. There is a 7 x 5 x 7 mm cyst at the lower pole. There is no hydronephrosis or renal calculi. US/US renal BI IMPRESSION: 7 x 5 x 7 mm left renal cyst. Otherwise unremarkable renal ultrasound. Electronically signed by: Homar Ku MD 08/01/2025 06:58 AM EDT Dictated By: Homar Ku MD Signed By: <Electronically signed by Homar Ku MD in OV> 08/01/25 0658 DD/ 1521 TD/TT: 07/31/25 1526 Ramp Flight Attendant: [address] [address] Ultrasound Report Signed Patient: Ang Mcguire MR#: [id number] 2001 : 1970 Acct:[id number] Age/Sex: 55 / M ADM Date: 07/31/25 Loc: HO.US Attending Dr: Macey Pimentel MD Ordering Physician: Doug Sherwood MD Date of Service: 07/31/25 Procedure(s): US bk al BI Accession Number(s): [id number] cc: Doug Sherwood MD; Homar Gayle MD Reason for Exam: N20 .0 - Calculus of kidney EXAMINATION: US KIDN EY BILATERAL HISTORY: N20.0 - Calculus of kidney TECHNIQUE: Real-time grayscale ultrasound imaging of the kidneys was performed and images were reviewed. COMPARISON: Comparis on is made with the prior examination dated 07/12/2018. Correlati on is also made with an unenhanced CT of the abdomen dated 12/03/2024. FINDINGS: Right kidney: The ri ght kidney measures 10.6 x 3.9 x 4.9 cm. Renal parenchymal echotext ure and thickness are normal. There are no masses. There is no hydronephrosis or renal calculi. Left Kidney: The lef t kidney measures 10.4 x 4.4 x 4.7 cm. Renal parenchymal echotext ure and thickness are normal. There is a 7 x 5 x 7 mm cyst at the lower pole. There is no hydronephrosis or renal calculi. US/US renal BI IMPRESSION: 7 x 5 x 7 mm left re nal cyst. Otherwise unremarkable renal ultrasound. Electronically yousuf d by: Homar Ku MD 08/01/2025 06:58 AM EDT Dictated By: Homar Ku MD Signed By: <Electronically signed by Homar Ku MD in OV> 08/01/25 0658 DD/ 1521 TD/TT: 07/31/25 1526 Ramp Flight Attendant: Reason For Referral No Information Medications Medication [...] Problem Status W/U Status Risk Notes Problem 396030781166026 Obesity (BMI 30.0-34.9) (E66.9) Active confirmed His body stable at 30. We discussed his diet and nutrition. We reviewed his plan to lose weight. Problem 271778878 GERD (gastroesophageal reflux disease) (K21.9) Active confirmed He has occasional reflux, which is well controlled with dgeh-hwr-nifce er medications. He will avoid eating late at night. Problem 318494748 Mixed hyperlipidemia (E78.2) Active confirmed He is due for comprehensive bloood work which was ordered. This will include a fasting lipid profile. Problem 23396465 Ureterolithiasis (N20.1) Active confirmed He is currently experiencing renal colic on the right. He has an adequate supply of pain medication. He says it is effective. He has been advised about fluid intake and stone preservation. He was instructed to call me at once if the stone passes. The urology Department is aware of him from the emergency room. Problem 453892963 Neuropathy (G62.9) Active confirmed He was referred to orthopedics to reevaluate the carpal tunnel situation and consider a neuropathy at the level of the elbow. Problem 64128452 Carpal tunnel syndrome (G56.00) Active confirmed He continu es to have symptoms in both hands. He is scheduled for revisional surgery later in the fall. Problem Cervical spondylosis without myelopathy (084131786) Osteoarthritis cervical spine (M47.812) Active confirmed He continues to have mild to moderate neck and shoulder pain. Problem 945380362 Carcinoma of prostate (C61) Active confirmed His PSA remains undetectable. There was no sign on examination of recurrent disease. Problem 29819576 Hearing loss, unspecified hearing loss type, unspecified laterality (H91.90) Active confirmed His hearing will be monitored. He has had no change in his hearing, which is slightly diminished. He says he does not need amplification at this time. Problem 87281518 Reactive depression (F32.9) Active confirmed His psychotherapy [...] Date Provider Diagnosis Homar Gayle III, MD [address] [place] [address] [place] [phone] 10/13/2024 Homar Gayle GERD (gastroesophage al reflux disease) K21.9 ; Carcinoma of prostate C61 ; Mixed hyperlipidemia E78.2 ; Osteoarthritis cervical spine M47.812 ; Hearing loss, unspecified hearing loss type, unspecified laterality H91.90 and Obesity E66.9 Homar Gayle III, MD [address] [place] [address] [place] [address] 12/06/2024 Homar Gayle GERD (gastroesophage al reflux disease) K21.9 ; Ureterolithiasis N20.1 ; Carpal tunnel syndrome G56.00 ; Osteoarthritis cervical spine M47.812 ; Mixed hyperlipidemia E78.2 ; Reactive depression F32.9 and Carcinoma of prostate C61 Homar Gayle III, MD [address] [place] [address] [place] [address] 04/13/2025 Homar Gayle GERD (gastroesophage al reflux disease) K21.9 ; Carcinoma of prostate C61 ; Obesity (BMI 30.0-34.9) E66.9 ; Neuropathy G62.9 ; Carpal tunnel syndrome G56.00 ; Osteoarthritis cervical spine M47.812 and Mixed hyperlipidemia E78.2 Homar Gayle III, MD [address] [place] [address] [place] [address] 04/24/2025 Homar Gayle GERD (gastroesophage al reflux disease) K21.9 ; Carcinoma of prostate C61 ; Osteoarthritis cervical spine M47.812 ; Mixed hyperlipidemia E78.2 ; Hearing loss, unspecified hearing loss type, unspecified laterality H91.90 ; Reactive depression F32.9 and Ureterolithiasis N20.1 Homar Gayle III, MD [address] [place] [address] [place] [phone] 09/04/2024 Homar Gayle III, MD [address] [place] [address] [place] [address] 12/05/2024 Homar Gayle III, MD [address] [place] [address] [place] [address] 12/07/2024 Homar Gayle Assessments Encounter Date Diagnosis (ICD Code) Assessment Notes Treat ment Notes Treatment Clinical Notes 10/13/2024 GERD (gastroesophage al reflux disease) (ICD-10 - K21.9) He has occasional reflux, which is well controlled with atzv-aru-ceyrinb medications. He will avoid eating late at night. 10/13/2024 Carcinoma of prostat e (ICD-10 - C61) His PSA remains undetectable. There was no sign on examination of recurrent disease. 12/06/2024 GERD (gastroesophage al reflux disease) (ICD-10 - K21.9) He has occasional reflux, which is well controlled with vpjn-syr-azcqewf medications. He will avoid eating late at [...] occasional reflux, which is well controlled with jfpl-ial-yrlmyrf medications. He will avoid eating late at night. 04/13/2025 Carcinoma of prostat e (ICD-10 - C61) His PSA remains undetectable. There was no sign on examination of recurrent disease. 04/24/2025 GERD (gastroesophage al reflux disease) (ICD-10 - K21.9) He has occasional reflux, which is well controlled with jfns-lpv-hwtcnkx medications. He will avoid eating late at [...] PROFILE, FASTING (COMPREHENSIVE METABOLI C) 08/01/2020 PROFILE, RANDOM (COMPREHENSIVE METABOLIC ) 08/10/2022 LIPID [...] w DIFF 10/02/2022 CBC w DIFF 01/30/2021 Lipid Panel 01/30/2021 Lipid Panel 04/09/2022 Next Appt Details Provider Name:Homar Reedne , 10/19/2025 10:00:00 AM, [address] [place] [address] , [address], [place], [address], Insurance Providers Payer Name Payer Address Payer Phone Subscriber Number Group Number Insured Name Patient Relationship to Insured Coverage Start Date Coverage End Date [place] [address] [place] [id number] Ang Mcguire Self - patient is the [...]
--- OUTSIDE RECORDS SUMMARY | 2025-08-24 12:12 | XMS_ITS | Encounter Summary ---
Author Organization [facility] Address [address] [place] [address] Care Team Providers Care Manager Forensic Name Role Phone Gayle, Homar Primary Care Provider Encounter Details Date Type Department Care Team (Late st Contact Info) Description 08/03/2025 myChart Message [facility] [address] [place] [address] [employer] Supervisor: Clemencia Carrillo LPN PSA Lab Work Social History Tobacco Use Types Packs/Day Years [...] AM EDT documented as of this encounter Plan of Treatment Upcoming Encounters Date Type Department Care Team (Late st Contact Info) Description 08/21/2026 9:00 AM EST Follow-Up [facility] [address] [place] [address] [employer] Supervisor: Ernesto Soliman MD [address] [place] [address] documented as of this encounter Visit Diagnoses Not on filedocumented in this encounter Care Teams Manager Forensic Relationship Specialty Start Date End Date Homar Gayle [facility] [address] PCP - General Hematology 06/14/19 documented as of this encounter
--- OUTSIDE RECORDS SUMMARY | 2025-08-24 12:12 | XMS_ITS | Encounter Summary ---
Author Organization [facility] Address [address] [place] [address] Care Team Providers Care Children Librarian Name Role Phone Homar Gayle Primary Care Provider [phone] Encounter Details Date Type Department Care Team (Late st Contact Info) Description 08/22/2025 myChart Message [facility] [address] [place] [address] Deputy [place] Marshal: Soledad Solis PA [address] [place] [address] [address] Social History Tobacco Use Types Packs/Day Years [...] Info) Description 08/21/2026 9:00 AM EST Follow-Up [facility] [address] [place] [address] Deputy [place] Marshal: Ernesto Soliman MD [address] [place] [address] documented as of this encounter Visit Diagnoses Not on filedocumented in this encounter Care Teams Children Librarian Relationship Specialty Start Date End Date Homar Gayle [facility] [address] PCP - General Hematology 06/14/19 documented as of this encounter
== END 2025-08-24 10:49 | disposition home or self-care (01) ==
LOC: HO.HUSH 10:22
PROVIDERS: PCP Internal Medicine Medical Oncology; Visit Provider Urology
DX: C61 Malignant neoplasm of prostate (principal); N20.0 Calculus of kidney; N52.01 Erectile dysfunction due to arterial insufficiency
CPT/HCPCS: 99214

== ENCOUNTER → 2025-08-24 10:21 | Outpatient (BNVA) | payer MEDICAID, SELFPAY | PROVIDERS: PCP Internal Medicine Medical Oncology; Visit Provider Urology | DX: C61 Malignant neoplasm of prostate (principal); N52.01 Erectile dysfunction due to arterial insufficiency; Z87.442 Personal history of urinary calculi | CPT/HCPCS: 99212 ==